=== PATIENT | male | born 1940 | race Caucasian/White ===

== ENCOUNTER → 2018-11-06 06:09 | Outpatient (CLI) | payer MEDICARE, OTHER, SELFPAY ==
--- NOTE | 2018-11-06 09:33 | STRESSREP_ITS ---
Stress Test Report Date: 11-06-18 Procedure: Pharmacologic stress nuclear imaging study Indications: Chest pain Consent: Per the patient Procedure: The patient underwent pharmacologic (Regadenoson) evaluation with a peak heart rate of 92 beats per minute (65 %predicted maximal heart rate) and a peak blood pressure of 170/62 mmHg. The baseline ECG demonstrated normal sinus rhythm. The peak pharmacologic ECG demonstrated no obvious ECG changes. There were no cardiac dysrhythmias pretest, during pharmacologic infusion, or recovery. There was no complaint of chest discomfort during pharmacologic infusion or recovery. The examination was discontinued secondary to completion of protocol. Impression: 1. Pharmacologic (Regadenoson) evaluation 2. Peak pharmacologic ECG with no obvious ECG changes. 3. There were no cardiac dysrhythmias pretest, during pharmacologic infusion, or recovery. 4. Nuclear images pending Myocardial perfusion imaging study: Technique: The patient was injected with 11.1 millicuries of technetium 99m Cardiolite and subsequently rest SPECT Cardiolite nuclear imaging was obtained in the horizontal long, vertical long, and short axis views. The patient underwent pharmacologic (Regadenoson) evaluation with a peak heart rate of 92 beats per minute (65 % percent predicted maximal heart rate) and a peak blood pressure of 170/62 mmHg. The patient was injected with 32.9 millicuries of technetium 99m Cardiolite and subsequently stress SPECT Cardiolite nuclear imaging was obtained in the horizontal long, vertical long, and short axis views. A gated Cardiolite study at peak stress was obtained. Interpretation: Rest and stress SPECT Cardiolite nuclear imaging status post realignment, normalization, and attenuation correction demonstrate a small area of subtle diminished tracer uptake near the apical segments without significant change between rest and stress. There is end systolic thickening and brightening. The gated Cardiolite study demonstrates myocardial thickening and inward wall motion. The reported LVEF is 55 %. Impression: 1. Rest and stress SPECT currently nuclear imaging demonstrate a small area of subtle diminished tracer uptake near the apical segments without significant change between rest and stress appearing compatible with physiologic apical thinning with no myocardial perfusion changes considered diagnostic for associated stress-induced myocardial ischemia. 2. The gated Cardiolite study reports an LVEF of 55 %. This note was generated with [employer] software. It may contain incorrect words, spelling, and punctuation that were not noted in checking the note before signing.
== END ==
PROVIDERS: Family Provider Family Medicine; PCP Family Medicine; Referring Provider Internal Medicine Cardiovascular Disease; Visit Provider Internal Medicine Cardiovascular Disease
DX: I25.10 Atherosclerotic heart disease of native coronary artery without angina pectoris (principal); I10 Essential (primary) hypertension
CPT/HCPCS: 78452; 93017; A9500; A4216; J2785

== ENCOUNTER → 2019-01-12 10:40 | Outpatient (CLI) | payer MEDICARE, OTHER, SELFPAY ==
[2018-12-04 14:28] VITALS: BMI 24.9
[2019-01-01 17:47] VITALS: BMI 24.9
--- NOTE | 2019-01-12 11:51 | RAD_ITS ---
STUDY: X-RAY CHEST REASON FOR EXAM: Male, 78 years old. Worsening shortness of breath TECHNIQUE: PA and lateral views of the chest. COMPARISON: None. FINDINGS: There is hyperinflation of the lungs consistent with chronic obstructive lung disease (COPD). There is no demonstrated pleural abnormality. Normal size heart. Normal mediastinum and hayder. Normal visualized pulmonary arteries. There is atherosclerotic calcification of the aortic arch with tortuosity. There are diffuse degenerative changes of the visualized thoracic spine. Normal visualized ribs, clavicles, and shoulders. There is no demonstrated abnormality of the visualized soft tissue structures of the upper abdomen. RAD/Chest PA and Lateral IMPRESSION: Hyperexpanded lungs, no superimposed acute pulmonary process Electronically Signed: Alfredo Damon MD at 12:14 EDT , Service support ,
--- NOTE | 2019-01-12 14:58 | PFTCOMP_ITS ---
COMPLETE PULMONARY FUNCTION TEST INTERPRETATION Brief HPI: Patient is an 78 year old male, currently under the care of Dr. Loya, who presents to [facility] for complete pulmonary function tests secondary to diagnosis of dyspnea. Respiratory therapist reports good effort and reproducible results. Interpretation: Forced expiration spirometry shows no large airways obstructive ventilatory defect with an FEV1 of 107% predicted. There is no significant bronchodilator response by strict ATS criteria. Spirograms are of good quality and plateau slowly, indicating slowly emptying areas of the lungs. The respiratory flow volume loop shows decreased expiratory flow rates at high lung volumes consistent with small airways obstruction. Lung volumes by body plethysmography show a normal total lung capacity at 5.33 L, 108% predicted. All other lung volumes are within normal limits. Diffusion capacity by carbon monoxide is normal at 126% predicted. The airway resistance is elevated. No previous pulmonary function tests were available for review. Impression: Grossly normal pulmonary function test with some stigmata of possible small airways disease. There was some improvement with bronchodilators, but this did not reach clinical significance by strict ATS criteria.
== END ==
PROVIDERS: Family Provider Family Medicine; PCP Family Medicine; Referring Provider Internal Medicine Cardiovascular Disease; Visit Provider Internal Medicine Cardiovascular Disease
DX: R06.00 Dyspnea, unspecified (principal)
CPT/HCPCS: 71046; 94060; 94726; 94729

== ENCOUNTER → 2019-04-13 12:50 | Outpatient (CLI) | payer MEDICARE, OTHER, SELFPAY ==
[2018-12-04 14:28] VITALS: BMI 24.9
[2019-02-19 06:17] VITALS: BMI 24.7
--- NOTE | 2019-04-13 12:52 | ECHOCS_ITS ---
Reason For Study: Dyspnea/SOB Procedure This was a 2D Doppler, Color Flow transthoracic echocardiogram. The study was technically difficult. Contrast injection was performed. Exam performed in department. Left Ventricle Normal LV size. Moderate concentric left ventricular hypertrophy. Apical false tendon noted. Left ventricular systolic function is normal. The estimated ejection fraction is 55 %. No evidence for diastolic dysfunction. No regional wall motion abnormalities noted. Right Ventricle Normal RV size. Normal systolic function. Atria Normal left atrium. Normal right atrium. No doppler evidence for ASD. Bubble contrast study negative for right to left interatrial shunt. Mitral Valve There is no mitral annular calcification. Normal mitral valve. Trivial mitral valve insufficiency. Tricuspid Valve Normal tricuspid valve. Trivial tricuspid valve insufficiency. Unable to estimate RV systolic pressure/pulmonary artery pressure due to technically difficult study. Aortic Valve The aortic valve is not well visualized. Mild focal aortic valve calcification. Mild (1+) aortic valve insufficiency. Pulmonic Valve The pulmonic valve is not well visualized. Great Vessels The aortic root is not well visualized. Pericardium/Pleural No pericardial effusion. Medication 22 gauge I.V. with prn adaptor inserted into right arm. Diluted definity 2ml given slow IV push to enhance endocardial definition. Performed a rapid injection of agitated mix of 9 cc saline and 1cc air to assess for atrial septal defect. MMode/2D Measurements & Calculations LVIDd: 4.5 cm IVSd: 1.5 cm LA dimension: 2.6 cm LVIDs: 2.8 cm LVPWd: 1.8 cm FS: 37.8 % LAV(MOD-sp2): 50.4 ml LVAd ap4: 41.1 cm2 SV(MOD-sp4): 92.6 ml EDV(MOD-sp4): 154.0 ml EDV(sp4-el): 163.0 ml LVAs ap4: 23.5 cm2 ESV(MOD-sp4): 61.4 ml ESV(sp4-el): 64.1 ml EF(MOD-sp4): 60.1 % EF(sp4-el): 60.7 % SV(sp4-el): 98.9 ml RA A4 area: 11.6 cm2 Time Measurements MV dec time: 0.25 sec Doppler Measurements & Calculations MV E max manpreet: 46.6 cm/sec Lat Peak E' Manpreet: 7.4 cm/sec Med Peak E' Manpreet: 4.2 cm/sec MV A max manpreet: 81.2 cm/sec E/E' lat: 6.3 E/E' med: 11.1 MV E/A: 0.57 MV V2 max: 83.6 cm/sec MV P1/2t max manpreet: 63.6 cm/sec Ao V2 max: 77.8 cm/sec MV max P.8 mmHg MV P1/2t: 136.4 msec Ao max P.4 mmHg MV V2 mean: 48.2 cm/sec Ao V2 mean: 50.3 cm/sec MV mean P.1 mmHg MV dec slope: 136.6 cm/sec2 Ao mean P.2 mmHg MV V2 VTI: 30.6 cm MVA(P1/2t): 1.6 cm2 Ao V2 VTI: 15.2 cm AI max manpreet: 359.8 cm/sec LV V1 max: 73.4 cm/sec PA V2 max: 70.1 cm/sec AI max P.8 mmHg LV V1 max P.2 mmHg LV V1 mean P.87 mmHg AI dec slope: 272.3 cm/sec2 LV V1 mean: 42.2 cm/sec AI P1/2t: 387.0 msec LV V1 VTI: 16.0 cm Interpretation Summary The study was technically difficult. Contrast injection was performed. Left ventricular systolic function is normal. The estimated ejection fraction is 55 %. Moderate concentric left ventricular hypertrophy. Apical false tendon noted. Trivial mitral valve insufficiency. Trivial tricuspid valve insufficiency. Mild focal aortic valve calcification. Mild (1+) aortic valve insufficiency. Unable to estimate RV systolic pressure/pulmonary artery pressure due to technically difficult study. No evidence for diastolic dysfunction. Ordering Physician: Farhat Loya Referring Physician: Jamie Yang Performed By: Jonathan Smith RCS
== END ==
PROVIDERS: Family Provider Family Medicine; PCP Family Medicine; Referring Provider Internal Medicine Cardiovascular Disease; Visit Provider Internal Medicine Cardiovascular Disease
DX: R06.00 Dyspnea, unspecified (principal)
CPT/HCPCS: 93306; Q9957; A4216; C8929

== ENCOUNTER → 2019-06-02 12:59 | Outpatient (CLI) | payer MEDICARE, OTHER, SELFPAY ==
[2019-02-19 06:17] VITALS: BMI 24.7
[2019-04-21 10:45] VITALS: BMI 25.0
--- NOTE | 2019-06-02 17:14 | BRONCHALL_ITS ---
Bronchoprovocation Challenge - Bronchoprovocation Challenge Bronchoprovocation Challenge: BRONCHOPROVOCATION STUDY INTERPRETATION Brief HPI: Patient is an 79 year old fe-male, currently under the care of myself, who presents to [facility] for a bronchoprovocation study secondary to diagnosis of chronic cough. Respiratory therapist reports good effort and reproducible results. Interpretation: Initial spirometry showed no large airways obstructive ventilatory defect. The patient was then given increasingly concentrated doses of methacholine in a stepwise fashion, using a modified ATS protocol. The patient had a significant reduction in FEV1 by 35% and a calculated PD20 of 0.643. Impression: This is a positive test in a range non-specific for asthma
== END ==
PROVIDERS: Family Provider Family Medicine; PCP Family Medicine; Referring Provider Internal Medicine Critical Care Medicine; Visit Provider Internal Medicine Critical Care Medicine
DX: R05 Cough (principal)
CPT/HCPCS: 94070; 95070; J3490; J7674

== ENCOUNTER 2020-12-11 16:58 | Inpatient (IN) | payer MEDICARE, OTHER, SELFPAY ==
[2020-08-29 14:05] VITALS: BMI 24.3
[2020-12-11 16:59] VITALS: BP 159/83; PULSE 93; RESP 16; TEMP 37.4; O2SAT 95; BMI 26.4
--- NOTE | 2020-12-11 17:12 | CT_ITS ---
EXAMINATION : Head CT w/out contrast HISTORY : fall COMPARISON : None. TECHNIQUE : Multiple contiguous axial images were obtained from the skull base to the vertex without intravenous contrast. A radiation dose optimization technique was used for this scan. FINDINGS : There is no evidence for acute intracranial hemorrhage, mass effect, or midline shift. There is no extra-axial fluid collection. There are periventricular white matter changes consistent with chronic microvascular ischemic disease. There is sulcal widening and ventricular enlargement consistent with cerebral atrophy. There is normal seymour-white differentiation, without CT evidence of acute ischemia or infarct. The skull base and calvarium are unremarkable. Bone-anchored hearing aid in place on the left. The orbits are unremarkable. The paranasal sinuses are clear. The mastoid air cells are well-aerated. The soft tissues are unremarkable. CT/Brain/Head without Contrast IMPRESSION: No acute intracranial abnormality. Chronic involutional and ischemic changes of the brain. Electronically Signed: Randell Richardson MD at 18:41 EDT Tel , Service support ,
--- NOTE | 2020-12-11 17:13 | EKG12_ITS ---
Test Reason : WEAKNESS Blood Pressure : / mmHG Vent. Rate : 093 BPM Atrial Rate : 093 BPM P-R Int : 192 ms QRS Dur : 100 ms QT Int : 358 ms P-R-T Axes : 038 -12 059 degrees QTc Int : 445 ms Normal sinus rhythm Moderate voltage criteria for LVH, may be normal variant Borderline ECG Confirmed by DEMETRIA BOYER, SARATH ([id number]), design editor COLLIN ANDRES ([id number]) on 12/13/2020 9:25:27 AM Referred By: GREGOR Confirmed By:SARATH AUGUSTIN MD
--- NOTE | 2020-12-11 17:15 | EX.ED.DYSGE1 ---
HPI History of Present Illness Chief Complaint: Weakness Informant: patient and spouse/S.O. Onset/Context/Timing Onset: Days Context: Gradual Onset Current Severity: Mild Maximum Severity: Moderate Narrative Narrative: Patient presents via EMS secondary to generalized weakness. states has had increasing weakness over the past several days. Today he went to sleep more than normal. He did have a fall today. states that he does fall fairly frequently. No specific injury from the fall. She was having more trouble helping him walk today and called EMS. [facility] Medical History (Updated 12/11/20 @ 19:[address] Jessica Marinelli MD) Bilateral carotid artery stenosis Cochlear implant in place Essential hypertension Non-rheumatic aortic regurgitation Non-rheumatic mitral regurgitation Vasovagal syncope Home Medications montelukast 10 mg tablet 10 mg PO QPM 12/03/18 [History Last Taken Unknown] triamcinolone acetonide 55 mcg nasal spray aerosol 1 spray INTRANASAL DAILY PRN 12/03/18 [History Last Taken Unknown] albuterol sulfate 90 mcg/actuation aerosol inhaler 2 puff INHALATION Q4H PRN #18 g 09/21/19 [Rx Last Taken Unknown] fluticasone 113 mcg-salmeterol 14 mcg/actuation breath activated powdr 1 inh INHALATION BID #1 ea 02/29/20 [Rx Last Taken Unknown] meloxicam 7.5 mg PO DAILY 12/11/20 [History Last Taken Unknown] tramadol 50 mg PO Q8 PRN 12/11/20 [History Last Taken Unknown] Allergy/AdvReac Type Severity Reaction Status Date / Time No Known Allergies Allergy Verified 12/11/20 17:04 Family History Mother Cancer ovarian Social History Smoking Status: Never smoker alcohol intake: never substance use type: does not use caffeine: Yes Type: tea Number of servings: 1 what type of physical activity do you participate in: none seatbelt use: always do you feel safe at home: Yes ROS ROS ED Constitutional Constitutional ED: Denies chills or fever(s) Eyes Eyes: Denies change in vision ENT ENT ED: Denies sore throat Cardiovascular Cardiovascular: Denies chest pain Respiratory/Chest Respiratory/Chest: Denies cough or dyspnea Gastrointestinal Gastrointestinal: Denies abdominal pain, diarrhea, nausea or vomiting Genitourinary Genitourinary ED: Denies dysuria Musculoskeletal Musculoskeletal: Reports arthralgias and neck pain; Denies back pain Integumentary Denies rash Neurologic Neurologic: Denies headache(s) or weakness Psychiatric Psychiatric: Denies anxiety or depression Endocrine Endocrinology: Denies polydipsia or polyuria Allergic/Immunologic Allergic/Immunologic ED: Denies urticaria EXAM Physical Exam Const Vital Signs: 12/11/20 16:59 12/11/20 17:04 Temperature 99.4 F H Temperature Source Temporal Pulse Rate 93 Respiratory Rate 16 Respiratory Effort Normal Respiratory Pattern Normal Blood Pressure 159/83 H Blood Pressure Mean 108 Pulse Ox 95 Oxygen Delivery Method Room Air Positive well nourished and well developed General Appearance ED: well developed HEENT Reports normocephalic and head/scalp atraumatic Eyes PERRL and EOMs intact bilaterally Neck supple Chest Wall inspection of chest normal and palpation of chest normal Resp normal respiratory effort and clear to auscultation bilaterally Cardio regular rate and regular rhythm GI normal to inspection, nondistended, normoactive bowel sounds Palpation: soft Extremity normal to inspection Neuro oriented x3 and no sensory deficits noted Neuro Narrative: No focal neurologic deficits noted at this time. Sensorium / Orientation: alert Motor Exam: strength 5/5 throughout Psych mental status grossly normal Skin no rashes or lesions noted MDM MDM MDM Narrative Medical decision making narrative: EKG, chest x-ray, head CT obtained. Blood work and urinalysis ordered. Lab Data Attestation: I reviewed the patient's lab results. Labs: Laboratory Results - last 24 hr 12/11/20 12/11/20 12/11/20 17:20 17:20 17:24 WBC 1.5 L RBC 4.00 L Hgb 13.8 Hct 38.6 L MCV 96.5 H MCH 34.5 H MCHC 35.8 RDW Std Deviation 46.3 H RDW Coeff of Cris 13.2 Plt Count 161 MPV 8.4 Immature Gran % (Auto) 0.000 Neut % (Auto) 16.2 L Lymph % (Auto) 35.8 Dorado % (Auto) 44.6 H Eos % (Auto) 2.7 Baso % (Auto) 0.7 Absolute Neuts (auto) 0.2 L Absolute Lymphs (auto) 0.53 L Nucleated RBC % 0 Diff Path Review May foll Sodium 130 L Potassium 4.1 Chloride 95 L Carbon Dioxide 26.0 Anion Gap 9 BUN 16 Creatinine 1.16 Estim Creat Clear Calc 41.11 Est GFR (MDRD) Af Amer 77 Est GFR (MDRD) Non-Af 64 BUN/Creatinine Ratio 13.8 Glucose 77 Calcium 8.0 L Total Bilirubin 0.40 Direct Bilirubin 0.12 AST 64 H ALT 67 H Alkaline Phosphatase 65 Troponin I 0.032 Total Protein 6.7 Albumin 3.4 Globulin 3.3 Urine Color Urine Clarity Urine pH Ur Specific Fallon Urine Protein Urine Glucose (UA) Urine Ketones Urine Occult Blood Urine Nitrite Urine Bilirubin Urine Urobilinogen Ur Leukocyte Esterase Urine RBC Urine WBC Ur Squamous Epith Cells Urine Bacteria Urine Mucus POC Glucose 79 12/11/20 18:04 WBC RBC Hgb Hct MCV MCH MCHC RDW Std Deviation RDW Coeff of Cris Plt Count MPV Immature Gran % (Auto) Neut % (Auto) Lymph % (Auto) Dorado % (Auto) Eos % (Auto) Baso % (Auto) Absolute Neuts (auto) Absolute Lymphs (auto) Nucleated RBC % Diff Path Review Sodium Potassium Chloride Carbon Dioxide Anion Gap BUN Creatinine Estim Creat Clear Calc Est GFR (MDRD) Af Amer Est GFR (MDRD) Non-Af BUN/Creatinine Ratio Glucose Calcium Total Bilirubin Direct Bilirubin AST ALT Alkaline Phosphatase Troponin I Total Protein Albumin Globulin Urine Color Yellow Urine Clarity Sl. Cloudy Urine pH 6.0 Ur Specific Fallon 1.020 Urine Protein 15 H Urine Glucose (UA) Normal Urine Ketones Negative Urine Occult Blood 10 H Urine Nitrite Negative Urine Bilirubin Negative Urine Urobilinogen Normal Ur Leukocyte Esterase 25 H Urine RBC 0-5 SEEN Urine WBC 0-5 SEEN Ur Squamous Epith Cells 0-5 SEEN Urine Bacteria 0 SEEN Urine Mucus 0 SEEN POC Glucose Radiography Chest X-Ray - ED: 1 View, Read by ED Physician and - (Rotated image but no focal infiltrate noted.) Diagnostic Testing: Radiology Impression Brain CT 12/11/20 17:12 IMPRESSION: No acute intracranial abnormality. Chronic involutional and ischemic changes of the brain. Electronically Signed: Randell Richardson MD at 18:41 EDT Tel , Service support , Chest X-Ray 12/11/20 18:06 IMPRESSION: Normal x-ray examination of the chest. Electronically Signed: Arun Gan MD at 18:22 EDT Tel , Service support , EKG Initial EKG: Attestation: I personally reviewed and interpreted this EKG as follows: Interpretation: Sinus Rhythm (Sinus at [address] change.) Treatment and Re-Evaluation Comments:: On repeat evaluation patient is lying in bed. He does appear agitated and fidgety. states she has noted increased confusion and agitation even since he left home. At this time I have no definitive source of infection to explain his change in symptoms. I will speak with hospitalist regarding observation overnight and repeat evaluation. Discharge Plan Triage Chief Complaint: Weakness ED Provider: Jessica Marinelli Dx/Rx/DC Orders Clinical Impression: Acute confusion Prescriptions: No Action triamcinolone acetonide [Nasacort] 55 mcg aerosol,spray 1 spray INTRANASAL DAILY PRN (Reason: Allergic Symptoms) RF: 0 montelukast 10 mg tablet 10 mg PO QPM RF: 0 albuterol sulfate [Ventolin HFA] 90 mcg/actuation HFA aerosol inhaler 2 puff INHALATION Q4H PRN (Reason: shortness of breath or wheezing) Qty: 18 RF: 6 fluticasone propion-salmeterol [AirDuo RespiClick] 113-14 mcg/actuation aerosol powdr breath activated 1 inh INHALATION BID Qty: 1 RF: 6 tramadol 50 mg tablet 50 mg PO Q8 PRN (Reason: Pain) RF: 0 meloxicam 7.5 mg tablet 7.5 mg PO DAILY RF: 0 Primary Care Provider: Jamie Yang Referrals: Jamie Yang MD [Primary Care Provider] - Disposition Disposition: Acute Care [facility]
[2020-12-11 17:31] LABS: Bedside Glucose 79 mg/dL (70-110)
[2020-12-11 17:36] LABS: Absolute Lymphocyte Count 0.53 X10^3/uL (0.83-4.51); Absolute Neutrophil Count 0.2 X10^3/uL (2.0-7.7); Basophil# 0.01 X10^3/uL; Basophil% 0.7 % (0-1); Eosinophil# 0.04 X10^3/uL; Eosinophils% 2.7 % (0-5); Hematocrit 38.6 % (40-54); Hemoglobin 13.8 g/dL (13.0-16.5); Lymphocyte # 0.53 X10^3/ul (0.83-4.51); Lymphocyte % 35.8 % (19-41); Mean Corp Hgb Conc 35.8 g/dL (32-36); Mean Corpuscular Hgb 34.5 pg (27.0-32.0); Mean Corpuscular Volume 96.5 fL (80-94); Mean Platelet Vol. 8.4 fl (6.2-12.0); Monocyte# 0.66 X10^3/uL; Monocyte% 44.6 % (0-10); NRBC Flagged by Analyzer 0 % (0-5); Neutrophil # 0.24 X10^3/uL (2.7-7.7); Neutrophil % 16.2 % (47-70); POSITIVE COUNT YES; POSITIVE DIFFERENTIAL YES; POSITIVE MORPHOLOGY YES; Platelet Count 161 K/mm3 (150-450); RBC Distribution Width CV 13.2 % (11.6-14.6); RBC Distribution Width SD 46.3 fl (35.1-43.9); White Blood Count 1.5 K/mm3 (4.4-11.0)
[2020-12-11 18:00] LABS: AST(SGOT) 64 U/L (15-37); Alanine Aminotransfer ALT/SGPT 67 U/L (16-61); Albumin, Serum 3.4 g/dL (3.2-5.0); Alkaline Phosphatase 65 U/L (45-117); Anion Gap 9 (5-15); BUN 16 mg/dL (7-18); BUN/Creat Ratio 13.8 RATIO (10-20); Bilirubin, Direct 0.12 mg/dL (0.00-0.30); Chloride 95 mmol/L (98-107); Creatinine, Serum 1.16 mg/dL (0.70-1.30); EST Glomerular Filtration Rate 64 mL/min (>60); Est Glom Filt Rate - Afr Amer 77 mL/min (>60); Estimated Creatinine Clearance 41.11 ml/min; Globulin 3.3 g/dL (2.2-4.2); Glucose 77 mg/dL (74-106); Potassium 4.1 mmol/L (3.5-5.1); Protein, Total 6.7 g/dL (6.4-8.2); Sodium Level 130 mmol/L (136-145)
[2020-12-11 18:01] LABS: Differential Indicated SCAN CRITERIA MET
--- NOTE | 2020-12-11 18:06 | RAD_ITS ---
STUDY: X-RAY CHEST REASON FOR EXAM: Male, 80 years old. sob TECHNIQUE: Single AP portable view of the chest. COMPARISON: 01/12/2019 FINDINGS: The lungs are clear and expanded. There is no demonstrated pleural abnormality. Normal size heart. Normal mediastinum and hayder. Normal visualized pulmonary arteries. Normal visualized aortic arch and descending thoracic aorta. Normal visualized thoracic spine. Normal visualized ribs, clavicles, and shoulders. There is no demonstrated abnormality of the visualized soft tissue structures of the upper abdomen. RAD/Chest 1 View (Portable) IMPRESSION: Normal x-ray examination of the chest. Electronically Signed: Arun Gan MD at 18:22 EDT Tel , Service support ,
[2020-12-11 18:11] LABS: Bacteria 0 SEEN /hpf (None Seen); Mucous, Urine 0 SEEN /hpf (<or=2+)
[2020-12-11 18:15] LABS: Color, Urine Yellow (Yellow); Glucose, Dipstick Normal (Normal); Ketone-Dipstick Negative (Negative); Leukocyte Esterase-Dipstick 25 /ul (Negative); Nitrite-Dipstick Negative (Negative); Occult Blood-Urine 10 /ul (Negative); Protein-Dipstick 15 mg/dl (Negative); Urine Bilirubin Dipstick Negative (Negative); Urine Clarity Sl. Cloudy (Clear); Urine Urobilinogen Normal (Normal)
[2020-12-11] MEDS: 0.9% Normal Saline 1,000 ML 150 ML IV ×2 (18:29→21:46)
[2020-12-11 18:34] LABS: Red Blood Cells-Urine 0-5 SEEN /hpf (0-5); Squamous Epithelial Cells - UA 0-5 SEEN /hpf (0-5); White Blood Cells 0-5 SEEN /hpf (0-5)
--- NOTE | 2020-12-11 19:01 | ED.RN ---
PT CONFUSED, BECOMES AGITATED, THESE ARE BASELINE BEHAVIORS PER .
--- NOTE | 2020-12-11 20:03 | HP.PCM.HOS_ITS ---
HPI - General General Date of Admission: 12/11/20 HPI Narrative EVERETT ORTIZ, is a 80 M who presents increased confusion and weakness. History primarily obtained through his given the patient's profound presbycusis, patient at baseline has some mild weakness where he would use her shoulder problem solve up to navigate in a store but would also have some confusion. He certainly not as sharp as he once was but would have periods of confusion 2. Today, the patient was notably more confused and was more impulsive such as getting himself up into the bathroom without waiting for help and then he did fall while he was propping himself up against a chair. No head trauma was noted . She was unable to manage him at home and send him to the emergency room. In the emergency room, patient underwent a work-up that was unremarkable. Patient was started on IV fluids but then he pulled out his IV. [facility] Medical History (Updated 12/11/20 @ 20:[address] Regulo Briones DO) Bilateral carotid artery stenosis Cochlear implant in place Essential hypertension Non-rheumatic aortic regurgitation Non-rheumatic mitral regurgitation Vasovagal syncope Home Medications montelukast 10 mg tablet 10 mg PO QPM 12/03/18 [History Last Taken Unknown] triamcinolone acetonide 55 mcg nasal spray aerosol 1 spray INTRANASAL DAILY PRN 12/03/18 [History Last Taken Unknown] albuterol sulfate 90 mcg/actuation aerosol inhaler 2 puff INHALATION Q4H PRN #18 g 09/21/19 [Rx Last Taken Unknown] fluticasone 113 mcg-salmeterol 14 mcg/actuation breath activated powdr 1 inh INHALATION BID #1 ea 02/29/20 [Rx Last Taken Unknown] meloxicam 7.5 mg PO DAILY 12/11/20 [History Last Taken Unknown] tramadol 50 mg PO Q8 PRN 12/11/20 [History Last Taken Unknown] Allergy/AdvReac Type Severity Reaction Status Date / Time No Known Allergies Allergy Verified 12/11/20 17:04 Family History Mother Cancer ovarian Social History Smoking Status: Never smoker alcohol intake: never substance use type: does not use caffeine: Yes Type: tea Number of servings: 1 what type of physical activity do you participate in: none seatbelt use: always do you feel safe at home: Yes ÁNGEL NEAL Narrative Weakness. Increased confusion. Patient about a month ago did have a rash that began his groin and then spread up his trunk but did receive prednisone which alleviated that rash. Had seen a primary care doctor as well as a astronomy instructor but no clear source was identified. Patient had not been sick prior to that. Patient denies any recent COVID-19 contacts. Patient has not been vaccinated for COVID-19. All review of systems were negative except as mentioned above in the history of present illness and the other review of systems. Vital Signs Vital Signs Vital Signs: 12/11/20 16:59 12/11/20 17:04 Temperature 37.4 C H Temperature Source Temporal Pulse Rate 93 Respiratory Rate 16 Respiratory Effort Normal Respiratory Pattern Normal Blood Pressure 159/83 H Blood Pressure Mean 108 Pulse Ox 95 Oxygen Delivery Method Room Air Weight Weight: 69.9 kg Body Mass Index (BMI) 26.4 Physical Exam Const alert and healthy appearing Constitutional Narrative: Hard of hearing. Afebrile. Pleasantly confused. HEENT normocephalic and head/scalp atraumatic HEENT Narrative: Slightly dry mucous membrane Eyes PERRL Neck no lymphadenopathy Resp normal respiratory effort and clear to auscultation bilaterally Cardio regular rate, regular rhythm, S1 normal heart sound and S2 normal heart sound GI normal to inspection, nondistended, normoactive bowel sounds, non-tender and non-distended Extremity normal to inspection, full ROM and no clubbing, cyanosis or edema Skin no rashes or lesions noted, no wounds and skin turgor normal Neuro CN's II-XII intact bilaterally, moves all extremities and no focal motor deficits Sensorium / Orientation: awake and alert Motor Exam: strength 5/5 throughout Results Lab / Micro Data Attestation: I reviewed the patient's lab results. Result Diagrams: 12/11/20 17:20 12/11/20 17:20 Labs: Laboratory Results - last 24 hr 12/11/20 12/11/20 12/11/20 17:20 17:20 17:24 WBC 1.5 L RBC 4.00 L Hgb 13.8 Hct 38.6 L MCV 96.5 H MCH 34.5 H MCHC 35.8 RDW Std Deviation 46.3 H RDW Coeff of Cris 13.2 Plt Count 161 MPV 8.4 Immature Gran % (Auto) 0.000 Neut % (Auto) 16.2 L Lymph % (Auto) 35.8 [place] % (Auto) 44.6 H Eos % (Auto) 2.7 Baso % (Auto) 0.7 Absolute Neuts (auto) 0.2 L Absolute Lymphs (auto) 0.53 L Nucleated RBC % 0 Diff Path Review May foll Sodium 130 L Potassium 4.1 Chloride 95 L Carbon Dioxide 26.0 Anion Gap 9 BUN 16 Creatinine 1.16 Estim Creat Clear Calc 41.11 Est GFR (MDRD) Af Amer 77 Est GFR (MDRD) Non-Af 64 BUN/Creatinine Ratio 13.8 Glucose 77 Calcium 8.0 L Total Bilirubin 0.40 Direct Bilirubin 0.12 AST 64 H ALT 67 H Alkaline Phosphatase 65 Troponin I 0.032 Total Protein 6.7 Albumin 3.4 Globulin 3.3 Urine Color Urine Clarity Urine pH Ur Specific [place] Urine Protein Urine Glucose (UA) Urine Ketones Urine Occult Blood Urine Nitrite Urine Bilirubin Urine Urobilinogen Ur Leukocyte Esterase Urine RBC Urine WBC Ur Squamous Epith Cells Urine Bacteria Urine Mucus POC Glucose 79 12/11/20 18:04 WBC RBC Hgb Hct MCV MCH MCHC RDW Std Deviation RDW Coeff of Cris Plt Count MPV Immature Gran % (Auto) Neut % (Auto) Lymph % (Auto) [place] % (Auto) Eos % (Auto) Baso % (Auto) Absolute Neuts (auto) Absolute Lymphs (auto) Nucleated RBC % Diff Path Review Sodium Potassium Chloride Carbon Dioxide Anion Gap BUN Creatinine Estim Creat Clear Calc Est GFR (MDRD) Af Amer Est GFR (MDRD) Non-Af BUN/Creatinine Ratio Glucose Calcium Total Bilirubin Direct Bilirubin AST ALT Alkaline Phosphatase Troponin I Total Protein Albumin Globulin Urine Color Yellow Urine Clarity Sl. Cloudy Urine pH 6.0 Ur Specific [place] 1.020 Urine Protein 15 H Urine Glucose (UA) Normal Urine Ketones Negative Urine Occult Blood 10 H Urine Nitrite Negative Urine Bilirubin Negative Urine Urobilinogen Normal Ur Leukocyte Esterase 25 H Urine RBC 0-5 SEEN Urine WBC 0-5 SEEN Ur Squamous Epith Cells 0-5 SEEN Urine Bacteria 0 SEEN Urine Mucus 0 SEEN POC Glucose Radiology Impression Brain CT 12/11/20 17:12 IMPRESSION: No acute intracranial abnormality. Chronic involutional and ischemic changes of the brain. Electronically Signed: Randell Richardson MD at 18:41 EDT Tel , Service support , Chest X-Ray 12/11/20 18:06 IMPRESSION: Normal x-ray examination of the chest. Electronically Signed: Arun Gan MD at 18:22 EDT Tel , Service support , Assessment & Plan Assessment/Plan (1) Acute confusion: (2) Debility: PLAN: 1. Debility * At baseline, patient is week but only requiring minimal support but today was much more pronounced. No clear source can be identified that would explain this dramatic change for him. * Plan would be to try to reattempt IV fluids as patient does appear to be a li ttle bit dehydrated. Additionally physical and occupational therapy evaluate and treat. Patient's is open to assisted facility if that is necessary. 2. Confusion * Patient more confused than his normal self but does have confusion at baseline. I feel this is just an exaggeration of his underlying what I feel is dementia. I told the patient's I cannot diagnose him with dementia but she is concerned that that could be a possibility. I did recommend that they follow-up with c2 tactical analysis technician to do a formal dementia evaluation. In the meantime, avoid tension medications, such as tramadol. Not sure the tramadol is contributing to this current situation may not be helping so that will be held. * Check TSH, B12 and folate levels for potentially reversible causes 3. Right shoulder pain * Per the patient's , patient is seen orthopedics and felt not to be a source of shoulder issue but is concerning that it can be radicular coming from the cervical spine. Patient was to follow-up with pain management to have an injection. This can be managed as outpatient. * But given the confusion we will hold the tramadol and to continue with the patient's meloxicam as well as add acetaminophen 4. Asthma * Not in exacerbation * Continue with his home medications 5. VTE prophylaxis: Not indicated given observation status at this time. 6. Advanced care planning: Discussed with the patient's . She she is unsure. I informed her that since she is unsure that we would leave the patient a full CODE STATUS meaning chest compressions, shocks if indicated, medications and potentially life support. And I did inform her that these decisions can be changed. 7. Health maintenance: Patient has not been vaccinated against COVID-19. She thinks that she herself may have contracted it back in June as she lost smell and taste at that time. Patient had no symptoms. I did encourage her as well as the patient to get vaccinated against COVID-19 to help protect from the va riant strains. Charges/Coding Visit Charges OBSV E&M: 71455 Initial observation care L3
[2020-12-11 20:07] VITALS: BP 148/71; PULSE 81; RESP 16; TEMP 37.1; O2SAT 95
[2020-12-11 21:05] VITALS: BMI 22.5
[2020-12-11 21:19] VITALS: BP 132/54; PULSE 94; RESP 18; TEMP 37.8; O2SAT 98
[2020-12-11] MEDS: Montelukast 10 MG Tablet PO (21:42)
[2020-12-11] MEDS: Acetaminophen 325 MG Tablet 650 MG PO (21:46)
[2020-12-11] MEDS: 0.9% Saline Lock 10 ML Syringe IV (21:47)
[2020-12-12] VITALS (8 sets, daily range): BP systolic 102–144; BP diastolic 41–84; PULSE 85–96; RESP 18–22; TEMP 36.8–37.8; O2SAT 94–99
[2020-12-12] MEDS: 0.9% Saline Lock 10 ML Syringe IV ×2 (04:35→21:26)
[2020-12-12 06:46] LABS: Absolute Lymphocyte Count 0.64 X10^3/uL (0.83-4.51); Absolute Neutrophil Count 0.2 X10^3/uL (2.0-7.7); Eosinophil# 0.02 X10^3/uL; Eosinophils% 1.1 % (0-5); Hematocrit 38.4 % (40-54); Hemoglobin 13.4 g/dL (13.0-16.5); Lymphocyte # 0.64 X10^3/ul (0.83-4.51); Lymphocyte % 36.8 % (19-41); Mean Corp Hgb Conc 34.9 g/dL (32-36); Mean Corpuscular Hgb 33.7 pg (27.0-32.0); Mean Corpuscular Volume 96.5 fL (80-94); Mean Platelet Vol. 8.5 fl (6.2-12.0); Monocyte# 0.83 X10^3/uL; Monocyte% 47.7 % (0-10); NRBC Flagged by Analyzer 0 % (0-5); Neutrophil # 0.24 X10^3/uL (2.7-7.7); Neutrophil % 13.8 % (47-70); POSITIVE DIFFERENTIAL YES; POSITIVE MORPHOLOGY YES; Platelet Count 154 K/mm3 (150-450); RBC Distribution Width CV 13.2 % (11.6-14.6); RBC Distribution Width SD 45.7 fl (35.1-43.9); Red Blood Count 3.98 M/mm3 (4.6-6.2); White Blood Count 1.7 K/mm3 (4.4-11.0)
[2020-12-12 06:51] LABS: Differential Indicated SCAN CRITERIA MET
[2020-12-12 07:02] LABS: Differential Comment SCANNED
[2020-12-12 07:25] LABS: Anion Gap 7 (5-15); BUN 15 mg/dL (7-18); BUN/Creat Ratio 13.6 RATIO (10-20); Chloride 97 mmol/L (98-107); EST Glomerular Filtration Rate 68 mL/min (>60); Est Glom Filt Rate - Afr Amer 82 mL/min (>60); Estimated Creatinine Clearance 43.35 ml/min; Glucose 84 mg/dL (74-106); Potassium 3.8 mmol/L (3.5-5.1); Sodium Level 130 mmol/L (136-145); Thyroid Stim Hormone (TSH) 2.24 uIU/mL (0.358-3.74)
[2020-12-12] MEDS: Albuterol 2.5 MG/3 ML VIAL.NEB. INHALATION (07:35)
[2020-12-12] MEDS: Budesonide Respules 0.5 MG/2 ML AMPUL.NEB. INHALATION ×2 (07:45→19:30)
[2020-12-12 08:29] LABS: Vitamin B12 656 pg/mL (211-911)
--- NOTE | 2020-12-12 10:12 | CASEMGMT ---
PERCY SUH Assessment: Face to Face with pt for initial transition planning/care coordination assessment. PERCY SUH introduced self and role at [facility], pt voices understanding and consents to assessment. Pt is alert sitting up in chair and defers questions to his who is at bedside at this time. Pt is hard of hearing. Care providers, pharmacy, and demographics verified/updated. Admitting Dx: debility PCP: Celia Specialists: Vincenzo, cardio; Isac, derm; Richard, ortho who then referred pt to [facility]cy for nonsurgical intervention; José pulm; Chris Stein, ENT; Dennis for cochlear implant. [facility] Insurance: MCR, [employer] Prescription Benefit: yes, [employer] LW/HPOA: Pt denies pt having LW/DPOA. LNOK: Sayda Cardoza, Living Arrangements: Pt lives with in a single story house with one step to enter into [facility] and 3 into the house, with a grab bar. states pt was I in ADL's up until yesterday. She states she doesn't feel at this point she can handle pt at home. States it takes too much to get him up. Transportation: Pt did drive, states she may need to hide his keys. She is able to transport pt to medical appts. Denies concerns with transportation. DME/HHC/SNF: Pt has a cane, walking stick and shower seat in the walk in shower. Pt has no history of HHC or SNF stays. Pt would like short term therapy for pt at time of dc. She states it took 4 people to assist him in the ER yesterday. States he did better today. Spoke with patient to see if he was agreeable to having short term therapy. He states whatever it takes. Patient and were provided a list of SNF providers including quality and resource use data and consistent with the patient?s preferred geographic region, medical needs, and insurance network. The patient?s preferred provider is 1. [facility] 2. [facility]. Notified Kel OTOOLE of the choices. Pt and state no further concerns/needs. CM to follow. Advised pt and to ask CM if any further question/concerns/needs arise, voices understanding. Pt Goal: Short term therapy to return home safely with . Plan: Short term therapy in SNF.
--- NOTE | 2020-12-12 10:20 | TELEMED_ITS ---
SOC Telemed has confirmed receipt of a request for visit. This document confirms receipt of the order initiating the consult. To find the results of the consultation, please view the patient's reports for the scanned Telemed Consult.
[2020-12-12] MEDS: Meloxicam 7.5 MG Tablet PO (10:23)
--- NOTE | 2020-12-12 11:30 | CASEMGMT ---
Addendum entered by Ivon Felix 12/12/20 17:37: SYDNIE placed a call to Danica in admissions regarding referral. Danica states they would like to do an onsite visit with pt and Rasheeda with [facility] can be at [facility] tomorrow morning to complete on site. SW in to speak with pt and pt's Sayda present in room. SW updated Sayda that [facility] is wanting to do an onsite visit tomorrow morning with pt. Sayda states understanding. SYDNIE then updated that Rasheeda with [facility] is actually at [facility] now to complete on site visit. SW updated Sayda. SYDNIE updated by Rasheeda with [facility] that they are not able to accept pt and she updated Sayda of this. SW to follow up with pt's Sayda tomorrow. Plan: SNF Original Note: Social Work Note SW received referral for SNF placement. First choice is [facility] and second choice is [facility]. SYDNIE placed a call to [facility] and spoke with Danica in admissions and provided referral. SYDNIE faxed referral. Plan: SNF pending acceptance Ivon Felix GLUTEN SETTLING TENDER, CLEAN ENERGY POLICY ANALYST
[2020-12-12 11:59] LABS: Pathologist Review Reviewed
--- NOTE | 2020-12-12 12:30 | PN.HOSP_ITS ---
Documented by User: Whitney Jesus NP, DRUM DYEING MACHINE OPERATOR-C 12/12/20 12:36 Subjective Subjective Patient seen and examined. at bedside. Patient confused, appears restless, impulsive. states patient has some underlying confusion at baseline however yesterday he woke up with dizziness and then became increasing ly confused throughout the day. She denies recent illness or other symptoms or complaints. She denies unilateral weakness, focal deficits, slurred speech. Objective Data Objective Data Vital Signs: Vital Signs Temp Pulse Resp BP Pulse Ox 100.0 F H 89 18 143/55 H 98 12/12/20 07:58 12/12/20 09:26 12/12/20 09:26 12/12/20 07:58 12/12/20 10:38 Oxygen Delivery Method Room Air Weight: 131 lb 6.328 oz Body Mass Index (BMI) 22.5 Intake & Output: Intake and Output for Last 24 Hours 12/10/20 12/11/20 12/12/20 23:59 23:59 23:59 Intake Total 302.5 / 402.5 1200 / 1200 Output Total 700 / 700 Balance 302.5 / 302.5 500 / 500 Lab / Micro Data Result Diagrams: 12/12/20 06:24 12/12/20 06:24 Labs: Laboratory Results - last 24 hr 12/11/20 12/11/20 12/11/20 17:20 17:20 17:24 WBC 1.5 L RBC 4.00 L Hgb 13.8 Hct 38.6 L MCV 96.5 H MCH 34.5 H MCHC 35.8 RDW Std Deviation 46.3 H RDW Coeff of Cris 13.2 Plt Count 161 MPV 8.4 Immature Gran % (Auto) 0.000 Neut % (Auto) 16.2 L Lymph % (Auto) 35.8 [place] % (Auto) 44.6 H Eos % (Auto) 2.7 Baso % (Auto) 0.7 Absolute Neuts (auto) 0.2 L Absolute Lymphs (auto) 0.53 L Nucleated RBC % 0 Differential Comment Diff Path Review Reviewed Sodium 130 L Potassium 4.1 Chloride 95 L Carbon Dioxide 26.0 Anion Gap 9 BUN 16 Creatinine 1.16 Estim Creat Clear Calc 41.11 Est GFR (MDRD) Af Amer 77 Est GFR (MDRD) Non-Af 64 BUN/Creatinine Ratio 13.8 Glucose 77 Calcium 8.0 L Total Bilirubin 0.40 Direct Bilirubin 0.12 AST 64 H ALT 67 H Alkaline Phosphatase 65 Troponin I 0.032 Total Protein 6.7 Albumin 3.4 Globulin 3.3 Vitamin B12 Folate TSH Urine Color Urine Clarity Urine pH Ur Specific [place] Urine Protein Urine Glucose (UA) Urine Ketones Urine Occult Blood Urine Nitrite Urine Bilirubin Urine Urobilinogen Ur Leukocyte Esterase Urine RBC Urine WBC Ur Squamous Epith Cells Urine Bacteria Urine Mucus POC Glucose 79 12/11/20 12/12/20 12/12/20 18:04 06:24 06:24 WBC 1.7 L RBC 3.98 L Hgb 13.4 Hct 38.4 L MCV 96.5 H MCH 33.7 H MCHC 34.9 RDW Std Deviation 45.7 H RDW Coeff of Cris 13.2 Plt Count 154 MPV 8.5 Immature Gran % (Auto) 0.600 Neut % (Auto) 13.8 L Lymph % (Auto) 36.8 [place] % (Auto) 47.7 H Eos % (Auto) 1.1 Baso % (Auto) 0.0 Absolute Neuts (auto) 0.2 L Absolute Lymphs (auto) 0.64 L Nucleated RBC % 0 Differential Comment SCANNED Diff Path Review Sodium 130 L Potassium 3.8 Chloride 97 L Carbon Dioxide 26.0 Anion Gap 7 BUN 15 Creatinine 1.10 Estim Creat Clear Calc 43.35 Est GFR (MDRD) Af Amer 82 Est GFR (MDRD) Non-Af 68 BUN/Creatinine Ratio 13.6 Glucose 84 Calcium 8.0 L Total Bilirubin Direct Bilirubin AST ALT Alkaline Phosphatase Troponin I Total Protein Albumin Globulin Vitamin B12 Folate 12.00 TSH 2.24 Urine Color Yellow Urine Clarity Sl. Cloudy Urine pH 6.0 Ur Specific [place] 1.020 Urine Protein 15 H Urine Glucose (UA) Normal Urine Ketones Negative Urine Occult Blood 10 H Urine Nitrite Negative Urine Bilirubin Negative Urine Urobilinogen Normal Ur Leukocyte Esterase 25 H Urine RBC 0-5 SEEN Urine WBC 0-5 SEEN Ur Squamous Epith Cells 0-5 SEEN Urine Bacteria 0 SEEN Urine Mucus 0 SEEN POC Glucose 12/12/20 06:24 WBC RBC Hgb Hct MCV MCH MCHC RDW Std Deviation RDW Coeff of Cris Plt Count MPV Immature Gran % (Auto) Neut % (Auto) Lymph % (Auto) [place] % (Auto) Eos % (Auto) Baso % (Auto) Absolute Neuts (auto) Absolute Lymphs (auto) Nucleated RBC % Differential Comment Diff Path Review Sodium Potassium Chloride Carbon Dioxide Anion Gap BUN Creatinine Estim Creat Clear Calc Est GFR (MDRD) Af Amer Est GFR (MDRD) Non-Af BUN/Creatinine Ratio Glucose Calcium Total Bilirubin Direct Bilirubin AST ALT Alkaline Phosphatase Troponin I Total Protein Albumin Globulin Vitamin B12 656 Folate TSH Urine Color Urine Clarity Urine pH Ur Specific [place] Urine Protein Urine Glucose (UA) Urine Ketones Urine Occult Blood Urine Nitrite Urine Bilirubin Urine Urobilinogen Ur Leukocyte Esterase Urine RBC Urine WBC Ur Squamous Epith Cells Urine Bacteria Urine Mucus POC Glucose Micro: Microbiology 12/11/20 19:55 Mucosa - Nose SARS-CoV-2 Antigen (Rapid) - Final Radiography Diagnostic Testing: Radiology Impression Brain CT 12/11/20 17:12 IMPRESSION: No acute intracranial abnormality. Chronic involutional and ischemic changes of the brain. Electronically Signed: Randell Richardson MD at 18:41 EDT Tel , Service support , Chest X-Ray 12/11/20 18:06 IMPRESSION: Normal x-ray examination of the chest. Electronically Signed: Arun Gan MD at 18:22 EDT Tel , Service support , Physical Exam Const alert and no apparent distress Orientation / Consciousness: awake HEENT normocephalic and moist oral mucous membranes Eyes PERRL, EOMs intact bilaterally and conjunctivae normal Neck no lymphadenopathy Resp normal respiratory effort and clear to auscultation bilaterally Cardio regular rate, regular rhythm and no murmurs Peripheral Pulses: pulses 2+ throughout GI normal to inspection, nondistended, normoactive bowel sounds, non-tender and non-distended Extremity normal to inspection Skin no rashes or lesions noted Lesions: no lesions Rashes: no rashes Trauma: no lacerations or abrasions Neuro CN's II-XII intact bilaterally, no focal motor deficits, no sensory deficits noted and deep tendon reflexes 2+ bilaterally Psych Activity / Motor Behavior: restless Memory / Cognition: cognition impaired Assessment & Plan Assessment/Plan (1) Acute confusion: (2) Debility: PLAN: 1. Confusion, debility-brain CT unremarkable. Unable to have MRI due to cochlear implant. UA, chest x-ray unremarkable. No focal deficits noted. reports underlying mild confusion at baseline however acutely worsened confusion prior to admission. Obtain SOC neurology consult. PT/OT. amenable to SNF at discharge. 2. Right shoulder pain-chronic. To follow-up with pain management as outpa tient. 3. Chronic asthma-as needed albuterol aerosol. 4. Leukopenia-unclear etiology, trend labs. DVT prophylaxis-Lovenox subcu This patient was seen by Whitney Jesus NP-C under the supervision of Dr. Aguillon. Documented by User: Dr. Scarlet Aguillon DO 12/12/20 16:04 Subjective Subjective Mr. Cardoza was seen in conjunction with Whitney Jesus NP. I agree with the above and the following is a representation of my independent history or physical examination. Per discussion with the she has noticed some memory issues that have not been overtly dramatic in the last year or so. She states yesterday he was fine when he woke up in the morning but complained of dizziness which is a chronic is april for him. She states she got concerned when he tried to get up to a chair independently which she usually would call for help, had a fall in which he did not hit his head, and was dramatically weak in the legs and was not able to get up independently or with her help. She states he seemed somewhat dazed at that point as well. His initial vital signs in the emergency department were unremarkable but I am unaware of what his vital signs were upon squad arrival. His states he seems to be improved today but indicates she would not be able to take care of him at home. Objective Data Lab / Micro Data Result Diagrams: 12/12/20 06:24 12/12/20 06:24 Physical Exam Const Constitutional Narrative: Patient is currently sleeping on his right side, is at bedside, patient appears comfortable HEENT head/scalp atraumatic Head and Scalp: normocephalic Resp normal respiratory effort, no retractions, no use of accessory muscles and clear to auscultation bilaterally Cardio regular rate, regular rhythm, S1 normal heart sound, S2 normal heart sound, no murmurs, no rub, no gallops, no clicks and no JVD GI normal to inspection, nondistended, normoactive bowel sounds, soft to palpation, non-tender and non-distended Extremity normal to inspection and no clubbing, cyanosis or edema Peripheral Pulses: Yes pulses 2+ throughout Skin no rashes or lesions noted, no wounds, skin turgor normal, no jaundice, no petechiae and no mottling Neuro Neuro Narrative: Patient is sleeping soundly Psych Psych Narrative: Patient is sleeping soundly Assessment & Plan Assessment/Plan (1) Acute confusion: (2) Debility: (3) Encephalopathy: (4) Chronic hyponatremia: (5) Transaminitis: PLAN: Assessment: Encephalopathy Confusion Debility Mild temperature elevation Chronic leukopenia Transaminitis Chronic hyponatremia Diastolic dysfunction Asthma Chronic right shoulder pain Suspected dementia versus mild cognitive impairment [place] with cochlear implant and hearing aid Plan: -Check ammonia -Repeat CMP to reevaluate liver function in a.m. -Continue home inhalers -UA is unimpressive -CT of head shows chronic vascular ischemic changes but no acute changes -Chest x-ray was normal -Unclear etiology for mild temperature elevation--> no signs or symptoms of acute infection -Await neurology consult -? LP -Continue PT OT - is amenable to jail facility placement at discharge for rehab purposes Charges/Coding Visit Charges Inpatient E&M: 73944 Subs Hosp L2
[2020-12-12 17:26] LABS: Ammonia < 10.0 umol/L (11-32)
[2020-12-12] MEDS: Montelukast 10 MG Tablet PO (21:22)
[2020-12-13] VITALS (7 sets, daily range): BP systolic 122–156; BP diastolic 60–68; PULSE 82–114; RESP 12–18; TEMP 37.2–38; O2SAT 93–97
[2020-12-13 06:56] LABS: Absolute Lymphocyte Count 0.62 X10^3/uL (0.83-4.51); Absolute Neutrophil Count 0.3 X10^3/uL (2.0-7.7); Eosinophil# 0.01 X10^3/uL; Eosinophils% 0.6 % (0-5); Hematocrit 38.8 % (40-54); Hemoglobin 14.2 g/dL (13.0-16.5); Lymphocyte # 0.62 X10^3/ul (0.83-4.51); Lymphocyte % 39.7 % (19-41); Mean Corp Hgb Conc 36.6 g/dL (32-36); Mean Corpuscular Hgb 33.9 pg (27.0-32.0); Mean Corpuscular Volume 92.6 fL (80-94); Mean Platelet Vol. 8.5 fl (6.2-12.0); Monocyte# 0.68 X10^3/uL; Monocyte% 43.6 % (0-10); NRBC Flagged by Analyzer 0 % (0-5); Neutrophil # 0.25 X10^3/uL (2.7-7.7); Neutrophil % 16.1 % (47-70); POSITIVE DIFFERENTIAL YES; POSITIVE MORPHOLOGY YES; Platelet Count 137 K/mm3 (150-450); RBC Distribution Width CV 12.7 % (11.6-14.6); RBC Distribution Width SD 42.9 fl (35.1-43.9); Red Blood Count 4.19 M/mm3 (4.6-6.2); White Blood Count 1.6 K/mm3 (4.4-11.0)
[2020-12-13 06:57] LABS: Differential Indicated SCAN CRITERIA MET
[2020-12-13 07:47] LABS: AST(SGOT) 89 U/L (15-37); Alanine Aminotransfer ALT/SGPT 71 U/L (16-61); Albumin, Serum 3.2 g/dL (3.2-5.0); Alkaline Phosphatase 61 U/L (45-117); Anion Gap 9 (5-15); BUN 16 mg/dL (7-18); BUN/Creat Ratio 16.6 RATIO (10-20); Calcium,Total 7.8 mg/dL (8.5-10.1); Chloride 90 mmol/L (98-107); Creatinine, Serum 0.96 mg/dL (0.70-1.30); EST Glomerular Filtration Rate 79 mL/min (>60); Est Glom Filt Rate - Afr Amer 96 mL/min (>60); Estimated Creatinine Clearance 49.68 ml/min; Globulin 3.2 g/dL (2.2-4.2); Glucose 89 mg/dL (74-106); Potassium 3.8 mmol/L (3.5-5.1); Protein, Total 6.4 g/dL (6.4-8.2); Sodium Level 122 mmol/L (136-145)
[2020-12-13] MEDS: Budesonide Respules 0.5 MG/2 ML AMPUL.NEB. INHALATION (07:59)
[2020-12-13 08:55] LABS: Anion Gap 9 (5-15); BUN 17 mg/dL (7-18); BUN/Creat Ratio 15.9 RATIO (10-20); Calcium,Total 7.7 mg/dL (8.5-10.1); Chloride 90 mmol/L (98-107); Creatinine, Serum 1.07 mg/dL (0.70-1.30); EST Glomerular Filtration Rate 70 mL/min (>60); Est Glom Filt Rate - Afr Amer 85 mL/min (>60); Estimated Creatinine Clearance 44.57 ml/min; Glucose 90 mg/dL (74-106); Potassium 3.7 mmol/L (3.5-5.1); Sodium Level 122 mmol/L (136-145)
--- NOTE | 2020-12-13 09:57 | CASEMGMT ---
Addendum entered by Ivon Felix 12/13/20 15:18: SW placed a call to at [facility] and left message regarding referral. Addendum entered by Ivon Felix 12/13/20 13:48: SW received call from Jackelyn at [facility] stating they are not able to accept pt. SW in to speak with pt's Sayda, next choice for SNF is [facility]. SW placed a call to in admissions and left message regarding referral. SW faxed referral to [facility]. Addendum entered by Ivon Felix 12/13/20 12:59: SW placed a call to Jackelyn at [facility] and left message regarding referral. Original Note: Social Work Note SW in to speak with pt and pt's Sayda. Sayda confirms [facility] told her yesterday that they are not able to accept pt. Sayda states second choice is now W. SYDNIE placed a call to Jackelyn at [facility] and left message regarding referral. SYDNIE faxed referral. Plan: SNF Ivon Felix LIBRARY SCIENCE PROFESSOR, COIN COUNTER AND WRAPPER
--- NOTE | 2020-12-13 10:40 | PCM.PN.HOSP ---
Documented by User: Whitney Jesus NP, RESIDENTIAL CARE FACILITY MANAGER-C 12/13/20 10:50 Subjective Subjective Patient seen and examined. Drowsy this morning. Remains confused. at bedside. is concerned that patient has not yet eaten breakfast. No new symptoms or complaints. No focal neurologic deficits. Objective Data Objective Data Vital Signs: Vital Signs Temp Pulse Resp BP Pulse Ox 100 F H 82 18 142/68 H 96 12/13/20 08:28 12/13/20 08:28 12/13/20 08:28 12/13/20 08:28 12/13/20 08:28 Oxygen Delivery Method Room Air Weight: 131 lb 6.328 oz Body Mass Index (BMI) 22.5 Intake & Output: Intake and Output for Last 24 Hours 12/11/20 12/12/20 12/13/20 23:59 23:59 23:59 Intake Total 302.5 / 402.5 1750 / 1750 100 / 100 Output Total 1100 / 1100 Balance 302.5 / 302.5 650 / 650 100 / 100 Lab / Micro Data Result Diagrams: 12/13/20 06:45 12/13/20 11:20 Labs: Laboratory Results - last 24 hr 12/11/20 12/12/20 12/13/20 17:20 16:44 06:45 WBC 1.6 L RBC 4.19 L Hgb 14.2 Hct 38.8 L MCV 92.6 MCH 33.9 H MCHC 36.6 H RDW Std Deviation 42.9 RDW Coeff of Cris 12.7 Plt Count 137 L MPV 8.5 Immature Gran % (Auto) 0.000 Neut % (Auto) 16.1 L Lymph % (Auto) 39.7 [place] % (Auto) 43.6 H Eos % (Auto) 0.6 Baso % (Auto) 0.0 Absolute Neuts (auto) 0.3 L Absolute Lymphs (auto) 0.62 L Nucleated RBC % 0 [address] Review Reviewed Sodium Potassium Chloride Carbon Dioxide Anion Gap BUN Creatinine Estim Creat Clear Calc Est GFR (MDRD) Af Amer Est GFR (MDRD) Non-Af BUN/Creatinine Ratio Glucose Calcium Total Bilirubin AST ALT Alkaline Phosphatase Ammonia < 10.0 L Total Protein Albumin Globulin Albumin/Globulin Ratio 12/13/20 12/13/20 06:45 08:30 WBC RBC Hgb Hct MCV MCH MCHC RDW Std Deviation RDW Coeff of Cris Plt Count MPV Immature Gran % (Auto) Neut % (Auto) Lymph % (Auto) [place] % (Auto) Eos % (Auto) Baso % (Auto) Absolute Neuts (auto) Absolute Lymphs (auto) Nucleated RBC % Diff Path Review Sodium 122 L 122 L Potassium 3.8 3.7 Chloride 90 L 90 L Carbon Dioxide 23.0 23.0 Anion Gap 9 9 BUN 16 17 Creatinine 0.96 1.07 Estim Creat Clear Calc 49.68 44.57 Est GFR (MDRD) Af Amer 96 85 Est GFR (MDRD) Non-Af 79 70 BUN/Creatinine Ratio 16.6 15.9 Glucose 89 90 Calcium 7.8 L 7.7 L Total Bilirubin 0.40 AST 89 H ALT 71 H Alkaline Phosphatase 61 Ammonia Total Protein 6.4 Albumin 3.2 Globulin 3.2 Albumin/Globulin Ratio 1.0 Micro: Microbiology 12/11/20 19:55 Mucosa - Nose SARS-CoV-2 Antigen (Rapid) - Final Physical Exam Const Constitutional Narrative: Drowsy, confused. HEENT normocephalic and moist oral mucous membranes Eyes PERRL, EOMs intact bilaterally and conjunctivae normal Neck no lymphadenopathy Resp normal respiratory effort and clear to auscultation bilaterally Cardio regular rate, regular rhythm and no murmurs Peripheral Pulses: pulses 2+ throughout GI normal to inspection, nondistended, normoactive bowel sounds, non-tender and non-distended Extremity normal to inspection Skin no rashes or lesions noted Lesions: no lesions Rashes: no rashes Trauma: no lacerations or abrasions Neuro CN's II-XII intact bilaterally, no focal motor deficits, no sensory deficits noted and deep tendon reflexes 2+ bilaterally Psych mental status grossly normal Memory / Cognition: cognition impaired Assessment & Plan Assessment/Plan (1) Encephalopathy: (2) Debility: PLAN: 1. Confusion, debility, low-grade fever-brain CT unremarkable. Unable to have MRI due to cochlear implant. UA, chest x-ray unremarkable. No focal deficits noted. reports underlying mild confusion at baseline however acutely worsened confusion prior to admission. Awaiting SOC neurology consult. PT/OT. amenable to SNF at discharge. EEG ordered. Consider possible LP pending neuro consult. 2. Hyponatremia-obtain urine studies, every 4 hour BMP. IV fluids. 3. Transaminitis-unclear etiology. Ammonia level normal. Obtain liver ultrasound. 4. Right shoulder pain-chronic. To follow-up with pain management as outpatient. 5. Chronic asthma-as needed albuterol aerosol. 4. Leukopenia-appears chronic, trend labs. DVT prophylaxis-Lovenox subcu This patient was seen by Whitney Jesus NP-C under the supervision of Dr. Aguillon. Documented by User: Dr. Scarlet Aguillon DO 12/13/20 14:08 Subjective Subjective The patient was seen in conjunction with Whitney eJsus NP. I agree with the above and the following is representation my independent history and physical examination. Patient had some intermittent agitation overnight but was better than the previous night. His is at the bedside and states that his oral intake has been poor. She indicates he really got crazy yesterday afternoon with regards to his behavior. She is concerned because neurology has not yet evaluated the patient. Objective Data Lab / Micro Data Result Diagrams: 12/13/20 06:45 12/13/20 11:20 Assessment & Plan Assessment/Plan (1) Encephalopathy: (2) SIADH (syndrome of inappropriate ADH production): (3) Acute confusion: (4) Essential hypertension: (5) Hyponatremia: (6) Transaminitis: (7) Chronic hyponatremia: PLAN: Assessment: Encephalopathy Confusion Debility Mild temperature elevation Chronic leukopenia Transaminitis Acute on Chronic hyponatremia Diastolic dysfunction Asthma Chronic right shoulder pain Suspected dementia versus mild cognitive impairment TUOLUMNE with cochlear implant and hearing aid Poor PO intake Plan: -ammonia WNL -serial Na q 4 -Urine and Sodium Osm/Urine Na looks like SIADH -Check Uric acid -only med that he is getting that could contribute is Lovenox--> will hold and use SCD alone -fluid restrict to 1500 cc/daily -May need IV fluids and Lasix combined if does not improve with fluid restriction -check CT chest -consult Nephro--> may need Vaptan -Continue home inhalers -UA is unimpressive and patient is concentrating urine without problem -Ultrasound right upper quadrant is pending -CT of head shows chronic vascular ischemic changes but no acute changes -Chest x-ray was normal -Unclear etiology for mild temperature elevation--> no signs or symptoms of acute infection -Await neurology consult--> consult has still not been completed we are following up on this -? LP -Continue PT OT - is amenable to residential facility placement at discharge for rehab purposes Charges/Coding Visit Charges Inpatient E&M: 23379 Subs Hosp L3
--- NOTE | 2020-12-13 10:45 | US_ITS ---
STUDY: ABDOMINAL ULTRASOUND - RIGHT UPPER QUADRANT REASON FOR VISIT: Male, 80 years old Transaminitis -- needs to be portable- will do after 1:00 TECHNIQUE: Ultrasound evaluation of the right upper quadrant was performed with real-time and static kolb-scale imaging. TECHNICAL QUALITY: Adequate. COMPARISON: None. FINDINGS: The examination is very limited due to patient''s condition. However the liver is normal in size and echogenicity it measures 14.9 cm slightly fatty. No focal lesion noted. The gallbladder is contracted no evidence of gallstones. The gallbladder wall measures 3 mm. The CBD measures about 7 mm. there is no dilatation of the intrahepatic biliary system. The pancreas is not seen well because of the presence of gas. The right kidney measures 10.5 x 4.6 x 3.9 cm with the renal cortex 1.1 cm. No hydronephrosis or stone formation. US/Liver IMPRESSION: Limited but grossly negative study Electronically Signed: Alexandria Ya, at 16:03 EDT Tel , Service support ,
[2020-12-13 10:58] LABS: Mucous, Urine 0 SEEN /hpf (<or=2+)
[2020-12-13 11:02] LABS: Color, Urine Yellow (Yellow); Glucose, Dipstick Normal (Normal); Leukocyte Esterase-Dipstick 25 /ul (Negative); Nitrite-Dipstick Negative (Negative); Occult Blood-Urine 25 /ul (Negative); Protein-Dipstick 30 mg/dl (Negative); Urine Bilirubin Dipstick Negative (Negative); Urine Clarity Clear (Clear); Urine Urobilinogen Normal (Normal)
[2020-12-13 11:07] LABS: Urine Sodium 95 mmol/L (Not Establ.)
[2020-12-13 11:11] LABS: Ketone-Dipstick 150 mg/dl (Negative)
[2020-12-13 11:13] LABS: Bacteria RARE /hpf (None Seen); Red Blood Cells-Urine 0-5 SEEN /hpf (0-5); Squamous Epithelial Cells - UA 0-5 SEEN /hpf (0-5); White Blood Cells 0-5 SEEN /hpf (0-5)
[2020-12-13] MEDS: Menthol/Lanolin/Calamine/Znox 113 GM Tube 1 APPLIC TOPICAL ×2 (11:25→21:10)
[2020-12-13] MEDS: Enoxaparin 40 MG/0.4 ML Syringe SC (11:25)
[2020-12-13] MEDS: 0.9% Saline Lock 10 ML Syringe IV ×3 (11:27→22:29)
[2020-12-13 11:52] LABS: Sodium Level 122 mmol/L (136-145)
[2020-12-13] MEDS: 0.9% Normal Saline 1,000 ML 75 ML IV (11:56)
[2020-12-13 12:04] LABS: Osmolality, Urine 698 mOsm/KG
[2020-12-13 12:12] LABS: Osmolality, Serum 256 mOsm/KG (280-301)
--- NOTE | 2020-12-13 14:01 | CT_ITS ---
STUDY: CT CHEST WITHOUT CONTRAST REASON FOR EXAM: Male, 80 years old. Rule out malignancy. Shortness of breath. RADIATION DOSAGE (If Supplied By Facility): CTDIvol = ( 14.37 ) mGy, DLP = ( 477.43 ) mGycm TECHNIQUE: Transaxial imaging was performed without the administration of intravenous contrast material. Multiplanar coronal and sagittal images were reformatted. Individualized dose optimization techniques were used for this CT. COMPARISON: Chest, 12/11/2020. FINDINGS: The lungs are normal. There is no demonstrated pleural abnormality. Normal heart and pericardium. Particularly Nonspecific subcentimeter mediastinal lymphadenopathy. There is a larger paratracheal lymph node measuring 1.8 x 1.8 x 1.5 cm it demonstrates a fatty center. Normal hilar regions. Normal unenhanced pulmonary arteries. There is atherosclerotic calcification of the aortic arch with tortuosity and elongation of the aortic arch and descending thoracic aorta. There are multi-level degenerative changes of the thoracic spine. There is no demonstrated abnormality of the visualized upper abdomen. CT/Chest without Contrast IMPRESSION: 1. Atherosclerotic changes of the aorta and coronary arteries. 2. Nonspecific mediastinal lymphadenopathy. 3. No acute pulmonary disease. Electronically Signed: Gilson Shah DO at 16:36 EDT Tel [phone], Service support ,
--- NOTE | 2020-12-13 14:50 | PCM.CONS.R ---
Assessment & Plan Assessment/Plan (1) Hyponatremia: PLAN: Reviewed records from primary care physician's office. His sodium was normal as of May 2020. Presented with a sodium of 130. Received fluids and today is down to 122. Urine osmolality almost 700. Urine sodium 95. Labs are consistent with SIADH. Volume status appears okay. TSH and cortisol are normal. Chest x-ray is clear. All his blood counts were normal in May. Currently has leukopenia and worsening thrombocytopenia. Etiology of altered mental status is likely some cerebral pathology. Most likely SIADH related to intracranial events. for treatment he has elevated LFTs. hence will hold vaptans try salt tablets and lasix PO dw Dr Aguillon (2) SIADH (syndrome of inappropriate ADH production): HPI Consult Data Date of Consult: 12/13/20 HPI Narrative HPI Narrative: 80-year-old male patient presented to the hospital with complaints of altered mental status. Patient is presently confused, most of the history is from the . Apparently he is in his usual state of health up until late last week. Since the last 3 days, he has become progressively confused, stopped eating and drinking. Presented to the ER. Initial CT head negative. No edema. Nephrology consulted for hyponatremia. Sodium is down to 122 today. [facility] Medical History (Updated 12/13/20 @ 13:[address] Scarlet Aguillon, DO) Bilateral carotid artery stenosis Cochlear implant in place Essential hypertension Leukopenia Non-rheumatic aortic regurgitation Non-rheumatic mitral regurgitation Vasovagal syncope Home Medications montelukast 10 mg tablet 10 mg PO QHS 12/03/18 [History Last Taken 12/10/20] triamcinolone acetonide 55 mcg nasal spray aerosol 1 spray INTRANASAL DAILY PRN 12/03/18 [History Last Taken Unknown] albuterol sulfate 90 mcg/actuation aerosol inhaler 2 puff INHALATION Q4H PRN #18 g 09/21/19 [Rx Last Taken 12/10/20] fluticasone 113 mcg-salmeterol 14 mcg/actuation breath activated powdr 1 inh INHALATION BID #1 ea 02/29/20 [Rx Last Taken 12/10/20] meloxicam 7.5 mg PO DAILY 12/11/20 [History Last Taken Unknown] tramadol 50 mg PO Q8 PRN 12/11/20 [History Last Taken 12/10/20] Allergy/AdvReac Type Severity Reaction Status Date / Time No Known Allergies Allergy Verified 12/11/20 17:04 Family History Mother Cancer ovarian Social History Smoking Status: Never smoker alcohol intake: never substance use type: does not use caffeine: Yes Type: tea Number of servings: 1 what type of physical activity do you participate in: none seatbelt use: always do you feel safe at home: Yes ROS Review of Systems ROS Unobtainable: due to endotracheal tube, due to mental condition, due to mental status and other Physical Exam Narrative Confused no obvious distress no pallor no icterus no JVD s1s2 no murmurs lungs clear abdomen soft no organomegaly no edema no cyanosis Lab / Micro Data Result Diagrams: 12/13/20 06:45 12/13/20 11:20 Labs: Laboratory Results - last 24 hr 12/12/20 12/13/20 12/13/20 16:44 06:45 06:45 WBC 1.6 L RBC 4.19 L Hgb 14.2 Hct 38.8 L MCV 92.6 MCH 33.9 H MCHC 36.6 H RDW Std Deviation 42.9 RDW Coeff of Cris 12.7 Plt Count 137 L MPV 8.5 Immature Gran % (Auto) 0.000 Neut % (Auto) 16.1 L Lymph % (Auto) 39.7 [place] % (Auto) 43.6 H Eos % (Auto) 0.6 Baso % (Auto) 0.0 Absolute Neuts (auto) 0.3 L Absolute Lymphs (auto) 0.62 L Nucleated RBC % 0 Sodium 122 L Potassium 3.8 Chloride 90 L Carbon Dioxide 23.0 Anion Gap 9 BUN 16 Creatinine 0.96 Estim Creat Clear Calc 49.68 Est GFR (MDRD) Af Amer 96 Est GFR (MDRD) Non-Af 79 BUN/Creatinine Ratio 16.6 Glucose 89 Serum Osmolality Calcium 7.8 L Total Bilirubin 0.40 AST 89 H ALT 71 H Alkaline Phosphatase 61 Ammonia < 10.0 L Total Protein 6.4 Albumin 3.2 Globulin 3.2 Albumin/Globulin Ratio 1.0 Cortisol Urine Color Urine Clarity Urine pH Ur Specific [place] Urine Protein Urine Glucose (UA) Urine Ketones Urine Occult Blood Urine Nitrite Urine Bilirubin Urine Urobilinogen Ur Leukocyte Esterase Urine RBC Urine WBC Ur Squamous Epith Cells Urine Bacteria Urine Mucus Urine Osmolality Ur Random Sodium 12/13/20 12/13/20 12/13/20 08:30 10:48 10:48 WBC RBC Hgb Hct MCV MCH MCHC RDW Std Deviation RDW Coeff of Cris Plt Count MPV Immature Gran % (Auto) Neut % (Auto) Lymph % (Auto) [place] % (Auto) Eos % (Auto) Baso % (Auto) Absolute Neuts (auto) Absolute Lymphs (auto) Nucleated RBC % Sodium 122 L Potassium 3.7 Chloride 90 L Carbon Dioxide 23.0 Anion Gap 9 BUN 17 Creatinine 1.07 Estim Creat Clear Calc 44.57 Est GFR (MDRD) Af Amer 85 Est GFR (MDRD) Non-Af 70 BUN/Creatinine Ratio 15.9 Glucose 90 Serum Osmolality Calcium 7.7 L Total Bilirubin AST ALT Alkaline Phosphatase Ammonia Total Protein Albumin Globulin Albumin/Globulin Ratio Cortisol Urine Color Yellow Urine Clarity Clear Urine pH 5.0 Ur Specific [place] 1.020 Urine Protein 30 H Urine Glucose (UA) Normal Urine Ketones 150 A* Urine Occult Blood 25 H Urine Nitrite Negative Urine Bilirubin Negative Urine Urobilinogen Normal Ur Leukocyte Esterase 25 H Urine RBC 0-5 SEEN Urine WBC 0-5 SEEN Ur Squamous Epith Cells 0-5 SEEN Urine Bacteria RARE Urine Mucus 0 SEEN Urine Osmolality 698 Ur Random Sodium 95 12/13/20 12/13/20 12/13/20 11:20 11:20 11:20 WBC RBC Hgb Hct MCV MCH MCHC RDW Std Deviation RDW Coeff of Cris Plt Count MPV Immature Gran % (Auto) Neut % (Auto) Lymph % (Auto) [place] % (Auto) Eos % (Auto) Baso % (Auto) Absolute Neuts (auto) Absolute Lymphs (auto) Nucleated RBC % Sodium 122 L Potassium Chloride Carbon Dioxide Anion Gap BUN Creatinine Estim Creat Clear Calc Est GFR (MDRD) Af Amer Est GFR (MDRD) Non-Af BUN/Creatinine Ratio Glucose Serum Osmolality 256 L Calcium Total Bilirubin AST ALT Alkaline Phosphatase Ammonia Total Protein Albumin Globulin Albumin/Globulin Ratio Cortisol 13.00 Urine Color Urine Clarity Urine pH Ur Specific [place] Urine Protein Urine Glucose (UA) Urine Ketones Urine Occult Blood Urine Nitrite Urine Bilirubin Urine Urobilinogen Ur Leukocyte Esterase Urine RBC Urine WBC Ur Squamous Epith Cells Urine Bacteria Urine Mucus Urine Osmolality Ur Random Sodium
[2020-12-13 15:01] LABS: Uric Acid 4.6 mg/dL (3.5-7.2)
--- NOTE | 2020-12-13 16:04 | CASEMGMT ---
Social Work Note SYDNIE received message from at [facility] stating they have no beds available at this time. SW in to speak with pt's Sayda. SW updated Sayda that [facility] is not able to accept pt. Sayda asked about HHC, SW explained HHC. Sayda would like to review the SNF list again tonight. Patient (and/or patient?s family) was provided a list of SNF providers including quality and resource use data and consistent with the patient?s preferred geographic region, medical needs, and insurance network. SNF list for both [facility] was provided to Sayda per her requests. SW to follow up with Sayda tomorrow. Plan: SNF pending acceptance Ivon Felix CLAMP OPERATOR, HIRED WORKER
[2020-12-13] MEDS: Furosemide 20 MG Tablet PO (16:10)
[2020-12-13] MEDS: Sodium Chloride 1 GM Tablet 2 GM PO ×2 (16:10→22:31)
[2020-12-13 17:27] LABS: Sodium Level 124 mmol/L (136-145)
--- NOTE | 2020-12-13 17:39 | ECHOD_ITS ---
Reason For Study: TIA/CVA Procedure This was a 2D Doppler, Color Flow transthoracic echocardiogram. The study was technically difficult. Exam performed portable in patient room. Left Ventricle Mildly dilated left ventricle. The estimated ejection fraction is EF calculated 44 %. Right Ventricle Normal right ventricle. Normal systolic function. Atria Normal left atrium. Normal right atrium. Mitral Valve The mitral valve is structurally normal. No prolapse or stenosis seen. Trivial mitral valve insufficiency. Tricuspid Valve Normal tricuspid valve. Trivial eccentric tricuspid valve insufficiency. Aortic Valve Aortic sclerosis, no stenosis. Mild (1+) aortic valve insufficiency. Pulmonic Valve The pulmonic valve is not well visualized. Great Vessels Normal aortic root. Pericardium/Pleural No pericardial effusion. Medication Previously negative bubble study on echo. MMode/2D Measurements & Calculations LVIDd: 3.8 cm IVSd: 1.3 cm Ao root diam: 3.6 cm LVIDs: 2.9 cm LVPWd: 1.2 cm RVDd: 2.4 cm FS: 24.8 % LVAd ap4: 9.1 cm2 LA A4 area: 8.9 cm2 LA dimension(2D): 3.1 cm LVLd ap4: 3.3 cm EDV(MOD-sp4): 21.9 ml EDV(sp4-el): 21.2 ml RA A4 area: 10.3 cm2 Time Measurements MV dec time: 0.27 sec Doppler Measurements & Calculations MV E max preeti: 57.8 cm/sec Ao V2 max: 100.8 cm/sec AI max preeti: 277.0 cm/sec MV A max preeti: 81.6 cm/sec Ao max P.1 mmHg AI max P.7 mmHg MV E/A: 0.71 AI dec slope: 194.8 cm/sec2 AI P1/2t: 416.5 msec LV V1 max: 81.3 cm/sec LV V1 max P.6 mmHg ECHO/Echo Complete Interpretation Summary The estimated ejection fraction is EF calculated 44 %. Mild to moderate LV systolic function in comparison to last Echo 04/13/2019(,(EF 55%) Grade #I diastolic Dysfuncthion Mild AI Trivial MR Trivial TR Ordering Physician: Whitney Jesus Referring Physician: ALBINA VELIZ Performed By: Rula Ivory, RDCS, RVT
--- NOTE | 2020-12-13 17:40 | CT_ITS ---
STUDY: CT BRAIN WITH AND WITHOUT CONTRAST REASON FOR EXAM: Male, 80 years old. Encephalopathy. Rule out metastatic disease. RADIATION DOSAGE (If Supplied By Facility): CTDIvol = ( 31.78 ) mGy, DLP = ( 2393.62 ) mGycm TECHNIQUE: Transaxial CT imaging of the brain was performed pre and post contrast administration. The examination was performed with intravenous administration of IV 100mL Isovue-370. Individualized dose optimization techniques were used for this CT. COMPARISON: 12/11/2020. FINDINGS: The study is limited due to scatter artifact from cochlear implant. Normal soft tissue structures. Normal calvarium. Normal size ventricles and extra-axial spaces for the patient''s age. Normal white matter tracts of the cerebral hemispheres. There are small punctate calcifications of the basal ganglia which are seen in the aging brain as a normal variant. Normal brainstem. Normal cerebellum. There is no intracranial hemorrhage. There are no findings of an acute ischemic infarction. There is no evidence of abnormal enhancing lesion. The intracranial vasculature appears grossly normal. Normal visualized paranasal sinuses. CT/Brain/Head W/WO Contrast IMPRESSION: 1. No evidence of acute intracranial or calvarial abnormality. Electronically Signed: Gilson Shah DO at 21:00 EDT Tel [phone], Service support ,
--- NOTE | 2020-12-13 17:42 | CT_ITS ---
STUDY: CTA HEAD AND NECK WITH CONTRAST REASON FOR EXAM: Male, 80 years old. Stroke. RADIATION DOSAGE (If Supplied By Facility): CTDIvol = ( 31.78 ) mGy, DLP = ( 2393.62 ) mGycm TECHNIQUE: CT angiography was performed with a multi-detector CT scanner. Data acquisition was obtained from the skull base through the vertex following intravenous administration of IV 100mL Isovue-370. MIP images were reconstructed from the axial data set. Post-processing of the angiographic images was performed, with multiplanar reformation and 3D reconstruction. Individualized dose optimization techniques were used for this CT. COMPARISON: CT of the head, 12/13/2020. FINDINGS: Normal bilateral petrous carotid arteries. Normal right cavernous carotid artery with a normal supraclinoid bifurcation. Normal left cavernous carotid artery with a normal supraclinoid bifurcation. Normal right A1 segments of the anterior cerebral artery. Normal left A1 segments of the anterior cerebral artery. There is non-visualization of the anterior communicating artery (ACOM). Normal bilateral A2 segments of the anterior cerebral arteries. Normal right M1 and M2 segments of the middle cerebral arteries, with a normal M1 bifurcation. Normal left M1 and M2 segments of the middle cerebral arteries, with a normal M1 bifurcation. Normal right posterior communicating artery (PCOM). Normal left posterior communicating artery (PCOM). Normal bilateral vertebral arteries. Normal basilar artery with a normal basilar bifurcation. The visualized bilateral superior cerebellar (SCA) arteries are normal. Normal bilateral P1, P2 and visualized P3 segments of the posterior cerebral arteries. There is no demonstrated aneurysm of the [place]. There is no demonstrated abnormality of the visualized brain. AORTIC ARCH: Atherosclerotic changes of the aortic arch. Normal origins of the brachiocephalic, left common carotid, and left subclavian arteries. RIGHT CAROTID ARTERIES: Normal right common carotid artery (CCA). There is calcifications at the carotid bifurcation without significant stenosis. Mild calcifications at the origin of the right internal carotid (ICA) artery without a hemodynamically significant stenosis. Normal visualized cervical portion of the right internal carotid artery. Normal origin of the right external carotid artery (ECA). LEFT CAROTID ARTERIES: Normal left common carotid artery (CCA). Atherosclerotic changes of the carotid bifurcation extending into the bulb without significant stenosis. Normal origin of the left internal carotid (ICA) artery without a hemodynamically significant stenosis. Normal visualized cervical portion of the left internal carotid artery. Normal origin of the left external carotid artery (ECA). VERTEBRAL ARTERIES: Normal bilateral vertebral arteries. CT/CTA Head AND Neck W/ Contrast IMPRESSION: 1. Normal cervical lordosis and intracranial vasculature. 2. Bilateral carotid plaque without significant stenosis. 3. Normal vertebral arteries. Electronically Signed: Gilson Shah DO at 21:17 EDT Tel [phone], Service support ,
[2020-12-13] MEDS: LORazepam 2 MG/ML Syringe 0.5 MG IV (19:21)
[2020-12-13] MEDS: QUEtiapine 25 MG Tablet PO (19:21)
[2020-12-13 20:56] LABS: Sodium Level 123 mmol/L (136-145)
[2020-12-13] MEDS: Acetaminophen 325 MG Tablet 650 MG PO (22:32)
[2020-12-13] MEDS: Montelukast 10 MG Tablet PO (22:34)
[2020-12-14] VITALS (17 sets, daily range): BP systolic 95–133; BP diastolic 43–66; PULSE 74–106; RESP 15–97; TEMP 36.8–37.2; O2SAT 92–100
[2020-12-14 00:34] LABS: Sodium Level 125 mmol/L (136-145)
[2020-12-14 02:15] LABS: Sodium Level 125 mmol/L (136-145)
[2020-12-14] MEDS: Sodium Chloride 1 GM Tablet 2 GM PO ×3 (05:07→19:35)
[2020-12-14] MEDS: 0.9% Saline Lock 10 ML Syringe IV (05:55)
[2020-12-14 06:04] LABS: Absolute Lymphocyte Count 0.91 X10^3/uL (0.83-4.51); Absolute Neutrophil Count 0.8 X10^3/uL (2.0-7.7); Eosinophil# 0.01 X10^3/uL; Eosinophils% 0.4 % (0-5); Hematocrit 41.6 % (40-54); Hemoglobin 15.4 g/dL (13.0-16.5); Lymphocyte # 0.91 X10^3/ul (0.83-4.51); Lymphocyte % 39.1 % (19-41); Mean Corpuscular Hgb 34.3 pg (27.0-32.0); Mean Corpuscular Volume 92.7 fL (80-94); Mean Platelet Vol. 8.5 fl (6.2-12.0); Monocyte% 25.8 % (0-10); NRBC Flagged by Analyzer 0 % (0-5); Neutrophil % 34.3 % (47-70); POSITIVE DIFFERENTIAL YES; POSITIVE MORPHOLOGY YES; Platelet Count 132 K/mm3 (150-450); RBC Distribution Width CV 13.2 % (11.6-14.6); RBC Distribution Width SD 44.7 fl (35.1-43.9); Red Blood Count 4.49 M/mm3 (4.6-6.2); White Blood Count 2.3 K/mm3 (4.4-11.0)
[2020-12-14 06:05] LABS: Differential Indicated SCAN CRITERIA MET
[2020-12-14 06:22] LABS: Differential Comment SCANNED
[2020-12-14 06:27] LABS: Atypical Lymphocyte 1+ %
[2020-12-14 06:34] LABS: ALB/GLOB Ratio 0.9 RATIO (0.9-2.4); AST(SGOT) 110 U/L (15-37); Alanine Aminotransfer ALT/SGPT 74 U/L (16-61); Albumin, Serum 3.2 g/dL (3.2-5.0); Alkaline Phosphatase 62 U/L (45-117); Anion Gap 11 (5-15); BUN 20 mg/dL (7-18); BUN/Creat Ratio 16.1 RATIO (10-20); Calcium,Total 7.8 mg/dL (8.5-10.1); Chloride 93 mmol/L (98-107); Cholesterol 121 mg/dL (200); Creatinine, Serum 1.24 mg/dL (0.70-1.30); EST Glomerular Filtration Rate 59 mL/min (>60); Est Glom Filt Rate - Afr Amer 72 mL/min (>60); Estimated Creatinine Clearance 38.46 ml/min; Globulin 3.4 g/dL (2.2-4.2); Glucose 102 mg/dL (74-106); High Density Lipoprotein 35 mg/dL; Potassium 3.6 mmol/L (3.5-5.1); Protein, Total 6.6 g/dL (6.4-8.2); Sodium Level 124 mmol/L (136-145); Triglycerides 96 mg/dL; Very Low Density Lipoprotein 19 mg/dL (5-40)
--- NOTE | 2020-12-14 07:00 | RAD_ITS ---
Under fluoroscopic control, 22 spinal needle was introduced into the subarachnoid space at the level of L3-4. 12 cc of clear CSF were collected and sent to the lab for assessment. RAD/Fluoro Guided Lumbar Puncture IMPRESSION: Uneventful lumbar puncture. Electronically Signed: Alexandria Ya, at 15:14 EDT Tel , Service support ,
--- NOTE | 2020-12-14 07:41 | RAD.NOTE ---
TESTING - To see if Rad Techs have the capability to use this function
[2020-12-14 10:01] LABS: Sodium Level 126 mmol/L (136-145)
--- NOTE | 2020-12-14 10:10 | PCM.CONS.GEN ---
Assessment & Plan Assessment/Plan (1) Transaminitis: (2) Hyponatremia: (3) Encephalopathy: PLAN: Unclear cause. Agree with neurology recs, plan for LP. On empiric acyclovir. Remains neutropenic, but improving. If he has temp 100.5 or higher, would check bcx x2, cxr, UA/Ucx, and start vanc/cefepime. Will follow, thank you, d/w Dr. Aguillon (4) Neutropenia: HPI Consult Data Date of Consult: 12/14/20 HPI Narrative HPI Narrative: EVERETT ORTIZ, is a 80 M who presented 12/11 with acute onset that AM of dizziness, lethargy. No c/o headache, neck pain, fever, oral ulcers. No h.o cold sores or HSV. No recent travel, bug bites. Has not gotten covid shot. thinks she had covid in June, was asymptomatic. Came to ED, admitted with neutropenia. No fever here, started on acyclovir and neurology consulted. LP planned. Unable to obtain ROS due to mental status. [facility] Medical History Bilateral carotid artery stenosis Cochlear implant in place Essential hypertension Leukopenia Non-rheumatic aortic regurgitation Non-rheumatic mitral regurgitation Vasovagal syncope Home Medications montelukast 10 mg tablet 10 mg PO QHS 12/03/18 [History Last Taken 12/10/20] triamcinolone acetonide 55 mcg nasal spray aerosol 1 spray INTRANASAL DAILY PRN 12/03/18 [History Last Taken Unknown] albuterol sulfate 90 mcg/actuation aerosol inhaler 2 puff INHALATION Q4H PRN #18 g 09/21/19 [Rx Last Taken 12/10/20] fluticasone 113 mcg-salmeterol 14 mcg/actuation breath activated powdr 1 inh INHALATION BID #1 ea 02/29/20 [Rx Last Taken 12/10/20] meloxicam 7.5 mg PO DAILY 12/11/20 [History Last Taken Unknown] tramadol 50 mg PO Q8 PRN 12/11/20 [History Last Taken 12/10/20] Allergy/AdvReac Type Severity Reaction Status Date / Time No Known Allergies Allergy Verified 12/11/20 17:04 Family History Mother Cancer ovarian Social History Smoking Status: Never smoker alcohol intake: never substance use type: does not use caffeine: Yes Type: tea Number of servings: 1 what type of physical activity do you participate in: none seatbelt use: always do you feel safe at home: Yes Physical Exam Const General Appearance: lethargic HEENT normocephalic and head/scalp atraumatic Eyes PERRL and EOMs intact bilaterally Neck supple and No nodes Resp normal air movement and clear to auscultation bilaterally Cardio regular rate and regular rhythm GI normal to inspection, nondistended, normoactive bowel sounds Extremity no clubbing, cyanosis or edema Skin no rashes or lesions noted Neuro CN's II-XII intact bilaterally Lab / Micro Data Result Diagrams: 12/14/20 05:58 12/14/20 09:46 Labs: Laboratory Results - last 24 hr 12/13/20 12/13/20 12/13/20 06:45 10:48 10:48 WBC RBC Hgb Hct MCV MCH MCHC RDW Std Deviation RDW Coeff of Cris Plt Count MPV Immature Gran % (Auto) Neut % (Auto) Lymph % (Auto) [place] % (Auto) Eos % (Auto) Baso % (Auto) Absolute Neuts (auto) Absolute Lymphs (auto) Nucleated RBC % Differential Comment Atypical Lymphocytes Sodium Potassium Chloride Carbon Dioxide Anion Gap BUN Creatinine Estim Creat Clear Calc Est GFR (MDRD) Af Amer Est GFR (MDRD) Non-Af BUN/Creatinine Ratio Glucose Serum Osmolality Uric Acid 4.6 Calcium Total Bilirubin AST ALT Alkaline Phosphatase Total Protein Albumin Globulin Albumin/Globulin Ratio Triglycerides Cholesterol LDL Cholesterol VLDL Cholesterol HDL Cholesterol Cortisol Urine Color Yellow Urine Clarity Clear Urine pH 5.0 Ur Specific Warner 1.020 Urine Protein 30 H Urine Glucose (UA) Normal Urine Ketones 150 A* Urine Occult Blood 25 H Urine Nitrite Negative Urine Bilirubin Negative Urine Urobilinogen Normal Ur Leukocyte Esterase 25 H Urine RBC 0-5 SEEN Urine WBC 0-5 SEEN Ur Squamous Epith Cells 0-5 SEEN Urine Bacteria RARE Urine Mucus 0 SEEN Urine Osmolality 698 Ur Random Sodium 95 12/13/20 12/13/20 12/13/20 11:20 11:20 11:20 WBC RBC Hgb Hct MCV MCH MCHC RDW Std Deviation RDW Coeff of Cris Plt Count MPV Immature Gran % (Auto) Neut % (Auto) Lymph % (Auto) [place] % (Auto) Eos % (Auto) Baso % (Auto) Absolute Neuts (auto) Absolute Lymphs (auto) Nucleated RBC % Differential Comment Atypical Lymphocytes Sodium 122 L Potassium Chloride Carbon Dioxide Anion Gap BUN Creatinine Estim Creat Clear Calc Est GFR (MDRD) Af Amer Est GFR (MDRD) Non-Af BUN/Creatinine Ratio Glucose Serum Osmolality 256 L Uric Acid Calcium Total Bilirubin AST ALT Alkaline Phosphatase Total Protein Albumin Globulin Albumin/Globulin Ratio Triglycerides Cholesterol LDL Cholesterol VLDL Cholesterol HDL Cholesterol Cortisol 13.00 Urine Color Urine Clarity Urine pH Ur Specific Warner Urine Protein Urine Glucose (UA) Urine Ketones Urine Occult Blood Urine Nitrite Urine Bilirubin Urine Urobilinogen Ur Leukocyte Esterase Urine RBC Urine WBC Ur Squamous Epith Cells Urine Bacteria Urine Mucus Urine Osmolality Ur Random Sodium 12/13/20 12/13/20 12/14/20 16:54 20:29 00:15 WBC RBC Hgb Hct MCV MCH MCHC RDW Std Deviation RDW Coeff of Cris Plt Count MPV Immature Gran % (Auto) Neut % (Auto) Lymph % (Auto) [place] % (Auto) Eos % (Auto) Baso % (Auto) Absolute Neuts (auto) Absolute Lymphs (auto) Nucleated RBC % Differential Comment Atypical Lymphocytes Sodium 124 L 123 L 125 L Potassium Chloride Carbon Dioxide Anion Gap BUN Creatinine Estim Creat Clear Calc Est GFR (MDRD) Af Amer Est GFR (MDRD) Non-Af BUN/Creatinine Ratio Glucose Serum Osmolality Uric Acid Calcium Total Bilirubin AST ALT Alkaline Phosphatase Total Protein Albumin Globulin Albumin/Globulin Ratio Triglycerides Cholesterol LDL Cholesterol VLDL Cholesterol HDL Cholesterol Cortisol Urine Color Urine Clarity Urine pH Ur Specific Warner Urine Protein Urine Glucose (UA) Urine Ketones Urine Occult Blood Urine Nitrite Urine Bilirubin Urine Urobilinogen Ur Leukocyte Esterase Urine RBC Urine WBC Ur Squamous Epith Cells Urine Bacteria Urine Mucus Urine Osmolality Ur Random Sodium 12/14/20 12/14/20 12/14/20 02:02 05:58 05:58 WBC 2.3 L RBC 4.49 L Hgb 15.4 Hct 41.6 MCV 92.7 MCH 34.3 H MCHC 37.0 H RDW Std Deviation 44.7 H RDW Coeff of Cris 13.2 Plt Count 132 L MPV 8.5 Immature Gran % (Auto) 0.400 Neut % (Auto) 34.3 L Lymph % (Auto) 39.1 [place] % (Auto) 25.8 H Eos % (Auto) 0.4 Baso % (Auto) 0.0 Absolute Neuts (auto) 0.8 L Absolute Lymphs (auto) 0.91 Nucleated RBC % 0 Differential Comment SCANNED Atypical Lymphocytes 1+ Sodium 125 L 124 L Potassium 3.6 Chloride 93 L Carbon Dioxide 20.0 L Anion Gap 11 BUN 20 H Creatinine 1.24 Estim Creat Clear Calc 38.46 Est GFR (MDRD) Af Amer 72 Est GFR (MDRD) Non-Af 59 L BUN/Creatinine Ratio 16.1 Glucose 102 Serum Osmolality Uric Acid Calcium 7.8 L Total Bilirubin 0.30 AST 110 H ALT 74 H Alkaline Phosphatase 62 Total Protein 6.6 Albumin 3.2 Globulin 3.4 Albumin/Globulin Ratio 0.9 Triglycerides 96 Cholesterol 121 LDL Cholesterol 67 VLDL Cholesterol 19 HDL Cholesterol 35 L Cortisol Urine Color Urine Clarity Urine pH Ur Specific Warner Urine Protein Urine Glucose (UA) Urine Ketones Urine Occult Blood Urine Nitrite Urine Bilirubin Urine Urobilinogen Ur Leukocyte Esterase Urine RBC Urine WBC Ur Squamous Epith Cells Urine Bacteria Urine Mucus Urine Osmolality Ur Random Sodium 12/14/20 09:46 WBC RBC Hgb Hct MCV MCH MCHC RDW Std Deviation RDW Coeff of Cris Plt Count MPV Immature Gran % (Auto) Neut % (Auto) Lymph % (Auto) [place] % (Auto) Eos % (Auto) Baso % (Auto) Absolute Neuts (auto) Absolute Lymphs (auto) Nucleated RBC % Differential Comment Atypical Lymphocytes Sodium 126 L Potassium Chloride Carbon Dioxide Anion Gap BUN Creatinine Estim Creat Clear Calc Est GFR (MDRD) Af Amer Est GFR (MDRD) Non-Af BUN/Creatinine Ratio Glucose Serum Osmolality Uric Acid Calcium Total Bilirubin AST ALT Alkaline Phosphatase Total Protein Albumin Globulin Albumin/Globulin Ratio Triglycerides Cholesterol LDL Cholesterol VLDL Cholesterol HDL Cholesterol Cortisol Urine Color Urine Clarity Urine pH Ur Specific Warner Urine Protein Urine Glucose (UA) Urine Ketones Urine Occult Blood Urine Nitrite Urine Bilirubin Urine Urobilinogen Ur Leukocyte Esterase Urine RBC Urine WBC Ur Squamous Epith Cells Urine Bacteria Urine Mucus Urine Osmolality Ur Random Sodium Radiology Impression Liver Ultrasound 12/13/20 10:45 IMPRESSION: Limited but grossly negative study Electronically Signed: Alexandria Ya, at 16:03 EDT Tel , Service support , Chest CT 12/13/20 14:01 IMPRESSION: 1. Atherosclerotic changes of the aorta and coronary arteries. 2. Nonspecific mediastinal lymphadenopathy. 3. No acute pulmonary disease. Electronically Signed: Gilson Shah DO at 16:36 EDT Tel [phone], Service support , Brain CT 12/13/20 17:40 IMPRESSION: 1. No evidence of acute intracranial or calvarial abnormality. Electronically Signed: Gilson Shah DO at 21:00 EDT Tel [phone], Service support , Head/Neck CTA 12/13/20 17:42 IMPRESSION: 1. Normal cervical lordosis and intracranial vasculature. 2. Bilateral carotid plaque without significant stenosis. 3. Normal vertebral arteries. Electronically Signed: Gilson Shah DO at 21:17 EDT Tel [phone], Service support ,
--- NOTE | 2020-12-14 10:41 | CASEMGMT ---
Social Work Note SYDNIE in to speak with pt's Sayda. Sayda states to try either [facility] or [facility] next. SYDNIE asked Sayda if she has been informed about COVID visitation policy at [facility]. Lucia states RUSLAN had mentioned pt would need to be in 14 days of isolation. Sayda asked about Private Duty Aides and if insurance would cover aides. This worker informed Sayda that private duty aides are all private pay and prices vary. Sayda states understanding. SYDNIE placed a call to both [facility] and [facility] and provided referral. SYDNIE faxed referral to both places. Plan: SNF pending acceptance Ivon Felix YACHT BUILDER, FLAKE OR SHRED ROLL OPERATOR
[2020-12-14 12:30] LABS: International Normalized Ratio 1.1; Prothrombin Time (Protime)PT. 13.9 SECONDS (11.7-14.9)
--- NOTE | 2020-12-14 12:33 | CASEMGMT ---
Pt screened with [facility] Palliative Care Screening Tool due to strata 3, pt did not meet criteria.
--- NOTE | 2020-12-14 13:40 | NURSING ---
1320-pt off unit via bed for scheduled procedure. present to sign consent
--- NOTE | 2020-12-14 13:45 | NURSING ---
PT ARRIVES FROM FLOOR VIA [employer] WITH . PROCEDURE REVIEWED WITH , QUESTIONS ANSWERED, AND CONSENT SIGNED. PT VERY [place], STS CAN READ LIPS. PT NOT ANSWERING QUESTIONS. IV PATENT. LUNGS CLEAR, B/L, ANTERIORLY. PT ASSISTED WITH URINAL.
[2020-12-14] MEDS: fentaNYL 100 MCG/2 ML Ampul IV (14:13)
--- NOTE | 2020-12-14 14:36 | PN.HOSP_ITS ---
Subjective Subjective Patient remains with confusion and debility. Per his he seemed a little bit better last evening and was able to eat some ice cream and a pudding cup. She is admitting more that she feels like he was having dementia issues and progressing at home with time but again reiterates that this is a drastic difference. She also admits that she feels that her his hearing issues are complicating things. Echo is being performed. Objective Data Objective Data Vital Signs: Vital Signs Temp Pulse Resp BP Pulse Ox 98.2 F 89 16 117/51 L 97 12/14/20 13:00 12/14/20 13:56 12/14/20 13:56 12/14/20 13:56 12/14/20 13:56 Oxygen Delivery Method Room Air Weight: 59.6 kg Body Mass Index (BMI) 22.5 Intake & Output: Intake and Output for Last 24 Hours 12/12/20 12/13/20 12/14/20 23:59 23:59 23:59 Intake Total 1750 / 1750 1561.25 / 1581.25 302 / 302 Output Total 1100 / 1100 200 / 200 100 / 100 Balance 650 / 650 1361.25 / 1381.25 202 / 202 Lab / Micro Data Result Diagrams: 12/14/20 05:58 12/14/20 09:46 Labs: Laboratory Results - last 24 hr 12/13/20 12/13/20 12/13/20 06:45 16:54 20:29 WBC RBC Hgb Hct MCV MCH MCHC RDW Std Deviation RDW Coeff of Cris Plt Count MPV Immature Gran % (Auto) Neut % (Auto) Lymph % (Auto) [place] % (Auto) Eos % (Auto) Baso % (Auto) Absolute Neuts (auto) Absolute Lymphs (auto) Nucleated RBC % Differential Comment Atypical Lymphocytes PT INR APTT Sodium 124 L 123 L Potassium Chloride Carbon Dioxide Anion Gap BUN Creatinine Estim Creat Clear Calc Est GFR (MDRD) Af Amer Est GFR (MDRD) Non-Af BUN/Creatinine Ratio Glucose Uric Acid 4.6 Calcium Total Bilirubin AST ALT Alkaline Phosphatase Total Protein Albumin Globulin Albumin/Globulin Ratio Triglycerides Cholesterol LDL Cholesterol VLDL Cholesterol HDL Cholesterol 12/14/20 12/14/20 12/14/20 00:15 02:02 05:58 WBC 2.3 L RBC 4.49 L Hgb 15.4 Hct 41.6 MCV 92.7 MCH 34.3 H MCHC 37.0 H RDW Std Deviation 44.7 H RDW Coeff of Cris 13.2 Plt Count 132 L MPV 8.5 Immature Gran % (Auto) 0.400 Neut % (Auto) 34.3 L Lymph % (Auto) 39.1 [place] % (Auto) 25.8 H Eos % (Auto) 0.4 Baso % (Auto) 0.0 Absolute Neuts (auto) 0.8 L Absolute Lymphs (auto) 0.91 Nucleated RBC % 0 Differential Comment SCANNED Atypical Lymphocytes 1+ PT INR APTT Sodium 125 L 125 L Potassium Chloride Carbon Dioxide Anion Gap BUN Creatinine Estim Creat Clear Calc Est GFR (MDRD) Af Amer Est GFR (MDRD) Non-Af BUN/Creatinine Ratio Glucose Uric Acid Calcium Total Bilirubin AST ALT Alkaline Phosphatase Total Protein Albumin Globulin Albumin/Globulin Ratio Triglycerides Cholesterol LDL Cholesterol VLDL Cholesterol HDL Cholesterol 12/14/20 12/14/20 12/14/20 05:58 09:46 12:12 WBC RBC Hgb Hct MCV MCH MCHC RDW Std Deviation RDW Coeff of Cris Plt Count MPV Immature Gran % (Auto) Neut % (Auto) Lymph % (Auto) [place] % (Auto) Eos % (Auto) Baso % (Auto) Absolute Neuts (auto) Absolute Lymphs (auto) Nucleated RBC % Differential Comment Atypical Lymphocytes PT 13.9 INR 1.1 APTT 38.0 H Sodium 124 L 126 L Potassium 3.6 Chloride 93 L Carbon Dioxide 20.0 L Anion Gap 11 BUN 20 H Creatinine 1.24 Estim Creat Clear Calc 38.46 Est GFR (MDRD) Af Amer 72 Est GFR (MDRD) Non-Af 59 L BUN/Creatinine Ratio 16.1 Glucose 102 Uric Acid Calcium 7.8 L Total Bilirubin 0.30 AST 110 H ALT 74 H Alkaline Phosphatase 62 Total Protein 6.6 Albumin 3.2 Globulin 3.4 Albumin/Globulin Ratio 0.9 Triglycerides 96 Cholesterol 121 LDL Cholesterol 67 VLDL Cholesterol 19 HDL Cholesterol 35 L Micro: Microbiology 12/11/20 19:55 Mucosa - Nose SARS-CoV-2 Antigen (Rapid) - Final Radiography Diagnostic Testing: Radiology Impression Liver Ultrasound 12/13/20 10:45 IMPRESSION: Limited but grossly negative study Electronically Signed: Alexandria Ya, at 16:03 EDT Tel , Service support , Chest CT 12/13/20 14:01 IMPRESSION: 1. Atherosclerotic changes of the aorta and coronary arteries. 2. Nonspecific mediastinal lymphadenopathy. 3. No acute pulmonary disease. Electronically Signed: Gilson Shah DO at 16:36 EDT Tel [phone], Service support , Echocardiogram 12/13/20 17:39 Interpretation Summary The estimated ejection fraction is EF calculated 44 %. Mild to moderate LV systolic function in comparison to last Echo 04/13/2019(,(EF 55%) Grade #I diastolic Dysfuncthion Mild AI Trivial MR Trivial TR Ordering Physician: Whitney Jesus Referring Physician: ALBINA VELIZ Performed By: Rula Ivory, ALDO, RVT Brain CT 12/13/20 17:40 IMPRESSION: 1. No evidence of acute intracranial or calvarial abnormality. Electronically Signed: Gilson Shah DO at 21:00 EDT Tel [phone], Service support , Head/Neck CTA 12/13/20 17:42 IMPRESSION: 1. Normal cervical lordosis and intracranial vasculature. 2. Bilateral carotid plaque without significant stenosis. 3. Normal vertebral arteries. Electronically Signed: Gilson Shah DO at 21:17 EDT Tel [phone], Service support , Physical Exam Const alert, no apparent distress and healthy appearing Constitutional Narrative: Lying in bed sleeping this morning, at bedside, currently calm Orientation / Consciousness: awake HEENT normocephalic and head/scalp atraumatic Head and Scalp: normocephalic Resp normal respiratory effort, no retractions, no use of accessory muscles and clear to auscultation bilaterally Cardio regular rate, regular rhythm, S1 normal heart sound, S2 normal heart sound, no murmurs, no rub, no gallops, no clicks and no JVD Peripheral Pulses: pulses 2+ throughout GI normal to inspection, nondistended, normoactive bowel sounds, soft to palpation, non-tender and non-distended Extremity normal to inspection, full ROM and no clubbing, cyanosis or edema Peripheral Pulses: Yes pulses 2+ throughout Skin Lesions: no lesions Rashes: no rashes Trauma: no lacerations or abrasions Neuro CN's II-XII intact bilaterally and deep tendon reflexes 2+ bilaterally Neuro Narrative: Patient is sleeping soundly Psych mental status grossly normal Psych Narrative: Patient is sleeping soundly Activity / Motor Behavior: restless Memory / Cognition: cognition impaired Assessment & Plan Assessment/Plan (1) Encephalopathy: (2) SIADH (syndrome of inappropriate ADH production): (3) Acute confusion: (4) Essential hypertension: (5) Hyponatremia: (6) Transaminitis: (7) Chronic hyponatremia: PLAN: Assessment: Encephalopathy Confusion Debility Mild temperature elevation Chronic leukopenia Transaminitis Acute on Chronic hyponatremia secondary to SIADH HFrEF-compensated Diastolic dysfunction Asthma Chronic right shoulder pain Suspected dementia versus mild cognitive impairment [place] with cochlear implant and hearing aid Poor PO intake Plan: -ammonia WNL -Continue serial Na q 4 -Urine and Sodium Osm/Urine Na looks like SIADH--> nephro agrees -Likely related to neurological status -Continue fluid restriction at 1500 cc daily -Continue salt tablets and Lasix -Conivaptan hands on hold secondary to mildly elevated transaminases -Blood cultures are pending -ID input appreciated -CT had negative/CTA head and neck stable mild nonobstructive carotid artery disease -EEG is negative -Continue acyclovir -LP is pending -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 intake remains poor may need to consider supplemental enteral nutrition with [place] - is amenable to halfway facility placement at discharge for rehab purposes Charges/Coding Visit Charges Inpatient E&M: 98512 Subs Hosp L3
--- NOTE | 2020-12-14 14:37 | CASEMGMT ---
Addendum entered by Ivon Felix 12/14/20 16:20: Sayda is present in pt's room. SW updated Sayda that [facility] is able to accept pt. Sayda agreeable to [facility]. SYDNIE placed a call to Ivon at [facility] and left message to disregard referral. Plan: [facility] once medically cleared Original Note: Social Work Note SW received call from Gala at [facility] stating they can accept pt when pt is medically cleared. SW attempted to update pt's , both pt and are off floor at this time. Ivon Felix CRIMINAL JUSTICE DEPARTMENT CHAIR, CRAB MEAT PROCESSOR
--- NOTE | 2020-12-14 14:39 | CYSPIN_PTH ---
PATIENT: EVERETT ORTIZ LOC: MS3 U#:[id number] AGE/SX: 80/M ROOM: SD323 RE12/12/[address]: Dr. Daniel Aguilar DO : 1940 BED: 1 DIS: 12/18/2020 SPEC #: [id number] RECD: 12/15/20 08:57 STATUS: DYLAN REQ #: [id number] DARLEEN: 12/14/20 14:[address]: Scarlet Aguillon DEPT: CYTOLOGY RECD BY: Lexi Conrad ENTERED: 12/15/20 08:57 SP TYPE: CYSPIN FL OTHR DR: DO Dr. Prasanna Mix MD Dr. Robert Leininger, MD Dr. William Lago, MD Tissues: Cerebrospinal Fluid Procedures: Pap Stain (control) Special Stain Group II Cytospin Fluid HEADER OPERATION: Lumbar puncture PRE-OP DIAGNOSIS: TIA/CVA TISSUE SUBMITTED: Cerebrospinal fluid for cytology DIAGNOSIS CYTOLOGY Cerebrospinal fluid for cytology (cytospin): Negative for malignant cells. Blood. AM:bon 12/15/2020 CYTOLOGY STUDY Slides are reviewed. CYTOLOGY GROSS Received is 1 ml of clear colorless fluid labeled with the patient's name and and designated per the requisition as CSF. Submitted for cytology preparation. / bon 12/15/2020 TC:5 CPT: 66896
[2020-12-14 15:12] LABS: Cytology, Body Fluid / CSF SEE PATHOLOGY REPORT
--- NOTE | 2020-12-14 15:23 | PCM.PN.REN ---
Subjective Subjective no new events. remains obtunded. ID note reviewed. possible [employer] infection, LP today. Objective Data Objective Data Vital Signs: Vital Signs Temp Pulse Resp BP Pulse Ox 98.2 F 76 97 H 104/47 L 99 12/14/20 13:00 12/14/20 15:10 12/14/20 15:10 12/14/20 15:10 12/14/20 15:10 Oxygen Flow Rate (L/min) [6] 2 Oxygen Flow Rate (L/min) [5] 2 Oxygen Flow Rate (L/min) [4] 2 Oxygen Flow Rate (L/min) [3] 2 Oxygen Flow Rate (L/min) [2] 2 Oxygen Flow Rate (L/min) [1 ( 2 Initial Baseline)] Oxygen Delivery Method [6] Nasal Cannula Oxygen Delivery Method [5] Nasal Cannula Oxygen Delivery Method [4] Nasal Cannula Oxygen Delivery Method [3] Nasal Cannula Oxygen Delivery Method [2] Nasal Cannula Oxygen Delivery Method [1 ( Nasal Cannula Initial Baseline)] Oxygen Delivery Method Room Air Weight: 59.6 kg Body Mass Index (BMI) 22.5 Intake & Output: Intake and Output for Last 24 Hours 12/12/20 12/13/20 12/14/20 23:59 23:59 23:59 Intake Total 1750 / 1750 1561.25 / 1581.25 302 / 302 Output Total 1100 / 1100 200 / 200 100 / 100 Balance 650 / 650 1361.25 / 1381.25 202 / 202 Lab / Micro Data Result Diagrams: 12/14/20 05:58 12/14/20 09:46 Labs: Laboratory Results - last 24 hr 12/13/20 12/13/20 12/14/20 16:54 20:29 00:15 WBC RBC Hgb Hct MCV MCH MCHC RDW Std Deviation RDW Coeff of Cris Plt Count MPV Immature Gran % (Auto) Neut % (Auto) Lymph % (Auto) [place] % (Auto) Eos % (Auto) Baso % (Auto) Absolute Neuts (auto) Absolute Lymphs (auto) Nucleated RBC % Differential Comment Atypical Lymphocytes PT INR APTT Sodium 124 L 123 L 125 L Potassium Chloride Carbon Dioxide Anion Gap BUN Creatinine Estim Creat Clear Calc Est GFR (MDRD) Af Amer Est GFR (MDRD) Non-Af BUN/Creatinine Ratio Glucose Calcium Total Bilirubin AST ALT Alkaline Phosphatase Total Protein Albumin Globulin Albumin/Globulin Ratio Triglycerides Cholesterol LDL Cholesterol VLDL Cholesterol HDL Cholesterol 12/14/20 12/14/20 12/14/20 02:02 05:58 05:58 WBC 2.3 L RBC 4.49 L Hgb 15.4 Hct 41.6 MCV 92.7 MCH 34.3 H MCHC 37.0 H RDW Std Deviation 44.7 H RDW Coeff of Cris 13.2 Plt Count 132 L MPV 8.5 Immature Gran % (Auto) 0.400 Neut % (Auto) 34.3 L Lymph % (Auto) 39.1 [place] % (Auto) 25.8 H Eos % (Auto) 0.4 Baso % (Auto) 0.0 Absolute Neuts (auto) 0.8 L Absolute Lymphs (auto) 0.91 Nucleated RBC % 0 Differential Comment SCANNED Atypical Lymphocytes 1+ PT INR APTT Sodium 125 L 124 L Potassium 3.6 Chloride 93 L Carbon Dioxide 20.0 L Anion Gap 11 BUN 20 H Creatinine 1.24 Estim Creat Clear Calc 38.46 Est GFR (MDRD) Af Amer 72 Est GFR (MDRD) Non-Af 59 L BUN/Creatinine Ratio 16.1 Glucose 102 Calcium 7.8 L Total Bilirubin 0.30 AST 110 H ALT 74 H Alkaline Phosphatase 62 Total Protein 6.6 Albumin 3.2 Globulin 3.4 Albumin/Globulin Ratio 0.9 Triglycerides 96 Cholesterol 121 LDL Cholesterol 67 VLDL Cholesterol 19 HDL Cholesterol 35 L 12/14/20 12/14/20 09:46 12:12 WBC RBC Hgb Hct MCV MCH MCHC RDW Std Deviation RDW Coeff of Cris Plt Count MPV Immature Gran % (Auto) Neut % (Auto) Lymph % (Auto) [place] % (Auto) Eos % (Auto) Baso % (Auto) Absolute Neuts (auto) Absolute Lymphs (auto) Nucleated RBC % Differential Comment Atypical Lymphocytes PT 13.9 INR 1.1 APTT 38.0 H Sodium 126 L Potassium Chloride Carbon Dioxide Anion Gap BUN Creatinine Estim Creat Clear Calc Est GFR (MDRD) Af Amer Est GFR (MDRD) Non-Af BUN/Creatinine Ratio Glucose Calcium Total Bilirubin AST ALT Alkaline Phosphatase Total Protein Albumin Globulin Albumin/Globulin Ratio Triglycerides Cholesterol LDL Cholesterol VLDL Cholesterol HDL Cholesterol Micro: Microbiology 12/11/20 19:55 Mucosa - Nose SARS-CoV-2 Antigen (Rapid) - Final Radiography Diagnostic Testing: Radiology Impression Liver Ultrasound 12/13/20 10:45 IMPRESSION: Limited but grossly negative study Electronically Signed: Alexandria Ya, at 16:03 EDT Tel , Service support , Chest CT 12/13/20 14:01 IMPRESSION: 1. Atherosclerotic changes of the aorta and coronary arteries. 2. Nonspecific mediastinal lymphadenopathy. 3. No acute pulmonary disease. Electronically Signed: Gilson Shah DO at 16:36 EDT Tel [phone], Service support , Echocardiogram 12/13/20 17:39 Interpretation Summary The estimated ejection fraction is EF calculated 44 %. Mild to moderate LV systolic function in comparison to last Echo 04/13/2019(,(EF 55%) Grade #I diastolic Dysfuncthion Mild AI Trivial MR Trivial TR Ordering Physician: Whitney Jesus Referring Physician: ALBINA VELIZ Performed By: Rula Ivory, RDCS, RVT Brain CT 12/13/20 17:40 IMPRESSION: 1. No evidence of acute intracranial or calvarial abnormality. Electronically Signed: Gilson Shah DO at 21:00 EDT Tel [phone], Service support , Head/Neck CTA 12/13/20 17:42 IMPRESSION: 1. Normal cervical lordosis and intracranial vasculature. 2. Bilateral carotid plaque without significant stenosis. 3. Normal vertebral arteries. Electronically Signed: Gilson Shah DO at 21:17 EDT Tel [phone], Service support , Lumbar Puncture Fluoroscopy 12/14/20 07:00 IMPRESSION: Uneventful lumbar puncture. Electronically Signed: Alexandria aY, at 15:14 EDT Tel , Service support , Physical Exam Narrative sleepy no obvious distress no pallor no icterus no JVD s1s2 no murmurs lungs clear abdomen soft no organomegaly no edema no cyanosis Assessment & Plan Assessment/Plan (1) Hyponatremia: PLAN: Reviewed records from primary care physician's office. His sodium was normal as of May 2020. Presented with a sodium of 130. down to 122. Urine osmolality almost 700. Urine sodium 95. Labs are consistent with SIADH. Volume status appears okay. TSH and cortisol are normal. Chest x-ray is clear. All his blood counts were normal in May. Currently has leukopenia and worsening thrombocytopenia. Etiology of altered mental status is likely some cerebral pathology. Most likely SIADH related to intracranial events. for treatment he has elevated LFTs. hence will hold vaptans. LFTs are slightly higher today. liver US is ok. ? related to sepsis sodium is better today. continue same meds for today ID note reviewed (2) SIADH (syndrome of inappropriate ADH production):
[2020-12-14] MEDS: Menthol/Lanolin/Calamine/Znox 113 GM Tube 1 APPLIC TOPICAL ×2 (16:02→21:07)
[2020-12-14 16:18] LABS: RBC Count, Spinal Fluid 8 /mm-3 (None seen)
[2020-12-14 16:19] LABS: Auto B Fluid Analyzer BKGD Ct COUNTS W/IN LIMITS (W/IN LIMITS)
[2020-12-14 16:20] LABS: Appearance CSF (character) CLEAR (Clear); CSF Color COLORLESS (Colorless); Tested Tube # 4
[2020-12-14 16:24] LABS: White Count, CSF 0 /mm-3 (0 - 5)
[2020-12-14 16:26] LABS: Body Fluid QC Type(s) BF1Q
[2020-12-14 16:33] LABS: Glucose Spinal Fluid 66 mg/dL (40-75)
[2020-12-14 18:04] LABS: Sodium Level 127 mmol/L (136-145)
[2020-12-14] MEDS: Furosemide 20 MG Tablet PO (18:19)
[2020-12-14] MEDS: Aspirin E.C. 81 MG Tablet PO (18:19)
[2020-12-14] MEDS: Budesonide Respules 0.5 MG/2 ML AMPUL.NEB. INHALATION (18:50)
[2020-12-14] MEDS: Montelukast 10 MG Tablet PO (19:35)
[2020-12-15 03:12] VITALS: BP 98/52; PULSE 82; RESP 18; TEMP 37; O2SAT 95
--- NOTE | 2020-12-15 04:06 | NURSING ---
Pt was brought out to nursing station as he kept jumping out of bed.
[2020-12-15] MEDS: Sodium Chloride 1 GM Tablet 2 GM PO ×3 (05:40→21:04)
[2020-12-15 07:22] VITALS: PULSE 88; RESP 16; O2SAT 96
[2020-12-15] MEDS: Budesonide Respules 0.5 MG/2 ML AMPUL.NEB. INHALATION ×2 (07:22→19:35)
[2020-12-15 08:25] VITALS: BP 109/54; PULSE 83; RESP 16; TEMP 36.2; O2SAT 95
[2020-12-15] MEDS: Menthol/Lanolin/Calamine/Znox 113 GM Tube 1 APPLIC TOPICAL ×2 (09:11→21:05)
[2020-12-15] MEDS: Aspirin E.C. 81 MG Tablet PO (09:11)
[2020-12-15] MEDS: Furosemide 20 MG Tablet PO (09:11)
[2020-12-15 09:54] LABS: Absolute Lymphocyte Count 0.76 X10^3/uL (0.83-4.51); Absolute Neutrophil Count 0.8 X10^3/uL (2.0-7.7); Basophil# 0.01 X10^3/uL; Basophil% 0.5 % (0-1); Differential Indicated SCAN CRITERIA MET; Eosinophil# 0.03 X10^3/uL; Eosinophils% 1.4 % (0-5); Hematocrit 40.2 % (40-54); Hemoglobin 14.8 g/dL (13.0-16.5); Lymphocyte # 0.76 X10^3/ul (0.83-4.51); Lymphocyte % 35.8 % (19-41); Mean Corp Hgb Conc 36.8 g/dL (32-36); Mean Corpuscular Hgb 34.2 pg (27.0-32.0); Mean Corpuscular Volume 92.8 fL (80-94); Mean Platelet Vol. 8.9 fl (6.2-12.0); Monocyte# 0.56 X10^3/uL; Monocyte% 26.4 % (0-10); NRBC Flagged by Analyzer 0 % (0-5); Neutrophil # 0.75 X10^3/uL (2.7-7.7); Neutrophil % 35.4 % (47-70); POSITIVE DIFFERENTIAL YES; POSITIVE MORPHOLOGY YES; Platelet Count 124 K/mm3 (150-450); RBC Distribution Width CV 13.5 % (11.6-14.6); RBC Distribution Width SD 46.2 fl (35.1-43.9); Red Blood Count 4.33 M/mm3 (4.6-6.2); White Blood Count 2.1 K/mm3 (4.4-11.0)
[2020-12-15 10:12] LABS: Pathologist Review Reviewed
[2020-12-15 10:15] LABS: Anion Gap 7 (5-15); BUN 19 mg/dL (7-18); BUN/Creat Ratio 13.6 RATIO (10-20); Calcium,Total 7.5 mg/dL (8.5-10.1); Chloride 97 mmol/L (98-107); EST Glomerular Filtration Rate 52 mL/min (>60); Est Glom Filt Rate - Afr Amer 62 mL/min (>60); Estimated Creatinine Clearance 34.06 ml/min; Glucose 99 mg/dL (74-106); Potassium 3.7 mmol/L (3.5-5.1); Sodium Level 130 mmol/L (136-145)
--- NOTE | 2020-12-15 11:02 | CASEMGMT ---
Social Work Note Medically pt is at [facility] through the weekend. SYDNIE in to speak with pt and pt's Sayda. SYDNIE provided Sayda will community resources including Direction Home and Private Duty List. Sayda states pt is much better today and is awake and sitting up in chair. Sayda states she would like [facility] to reevaluate pt on Friday to determine if they would be able to accept pt if pt is less confused. SYDNIE informed Sayda that this worker can update [facility] on Friday on how pt does over the weekend. SYDNIE informed Sayda that this worker will keep bed on hold at [facility] as they are on the only SNF at this time willing to accept pt. Sayda states understanding, agreeable to plan. Plan: Pt is here through the weekend. Sayda would like pt to be reevaluated Friday by [facility] to see if they would accept pt after the weekend. Bed is on hold for pt for [facility] at [place] in the event [facility] is not able to accept pt. Ivon Felix MAT SEWER, ADDICTION MEDICINE PHYSICIAN
--- NOTE | 2020-12-15 12:35 | PCM.PN.HOSP ---
Subjective Subjective Appears that the patient had a better night. His reports that he was fairly sleepy yesterday. He did get Seroquel the night before and had sedation for his LP. All viral lab data from CSF is pending. is concerned about his urinary urgency which has been a chronic issue and is questioning whether or not we can start something for his prostate. Upon further discussion it does not sound like a prostate issue it sounds more like an overactive bladder issue. I recommended follow-up as an outpatient with urology and that we should probably not start any new medications at this time until his mental status resolved. She was agreeable with this. Objective Data Objective Data Vital Signs: Vital Signs Temp Pulse Resp BP Pulse Ox 97.1 F L 83 16 109/54 L 95 12/15/20 08:25 12/15/20 08:25 12/15/20 08:25 12/15/20 08:25 12/15/20 08:25 Oxygen Flow Rate (L/min) [6] 2 Oxygen Flow Rate (L/min) [5] 2 Oxygen Flow Rate (L/min) [4] 2 Oxygen Flow Rate (L/min) [3] 2 Oxygen Flow Rate (L/min) [2] 2 Oxygen Flow Rate (L/min) [1 ( 2 Initial Baseline)] Oxygen Delivery Method [6] Nasal Cannula Oxygen Delivery Method [5] Nasal Cannula Oxygen Delivery Method [4] Nasal Cannula Oxygen Delivery Method [3] Nasal Cannula Oxygen Delivery Method [2] Nasal Cannula Oxygen Delivery Method [1 ( Nasal Cannula Initial Baseline)] Oxygen Delivery Method Room Air Weight: 59.6 kg Body Mass Index (BMI) 22.5 Intake & Output: Intake and Output for Last 24 Hours 12/13/20 12/14/20 12/15/20 23:59 23:59 23:59 Intake Total 1561.25 / 1581.25 1037.75 / 1357.75 896 / 896 Output Total 200 / 200 100 / 500 400 / 400 Balance 1361.25 / 1381.25 937.75 / 857.75 496 / 496 Lab / Micro Data Result Diagrams: 12/15/20 09:45 12/15/20 09:45 Labs: Laboratory Results - last 24 hr 12/14/20 12/14/20 12/14/20 14:39 14:39 17:29 WBC RBC Hgb Hct MCV MCH MCHC RDW Std Deviation RDW Coeff of Cris Plt Count MPV Immature Gran % (Auto) Neut % (Auto) Lymph % (Auto) [place] % (Auto) Eos % (Auto) Baso % (Auto) Absolute Neuts (auto) Absolute Lymphs (auto) Nucleated RBC % Differential Comment Sodium 127 L Potassium Chloride Carbon Dioxide Anion Gap BUN Creatinine Estim Creat Clear Calc Est GFR (MDRD) Af Amer Est GFR (MDRD) Non-Af BUN/Creatinine Ratio Glucose Calcium Fld Polynuclear WBCs # 0.000 Fld Polynuclear WBCs % 0.0 Fluid Mononuclear WBCs 0.000 Fld Mononuclear WBCs % 0.0 CSF Appearance CLEAR CSF Color COLORLESS CSF WBC 0 CSF RBC 8 H CSF Cell Count Tube # 4 CSF Total Cell Counted Not Reportable CSF Comment Reviewed CSF Glucose 66 CSF Total Protein 52.0 H 12/15/20 12/15/20 09:45 09:45 WBC 2.1 L RBC 4.33 L Hgb 14.8 Hct 40.2 MCV 92.8 MCH 34.2 H MCHC 36.8 H RDW Std Deviation 46.2 H RDW Coeff of Cris 13.5 Plt Count 124 L MPV 8.9 Immature Gran % (Auto) 0.500 Neut % (Auto) 35.4 L Lymph % (Auto) 35.8 [place] % (Auto) 26.4 H Eos % (Auto) 1.4 Baso % (Auto) 0.5 Absolute Neuts (auto) 0.8 L Absolute Lymphs (auto) 0.76 L Nucleated RBC % 0 Differential Comment COMMENT Sodium 130 L Potassium 3.7 Chloride 97 L Carbon Dioxide 26.0 Anion Gap 7 BUN 19 H Creatinine 1.40 H Estim Creat Clear Calc 34.06 Est GFR (MDRD) Af Amer 62 Est GFR (MDRD) Non-Af 52 L BUN/Creatinine Ratio 13.6 Glucose 99 Calcium 7.5 L Fld Polynuclear WBCs # Fld Polynuclear WBCs % Fluid Mononuclear WBCs Fld Mononuclear WBCs % CSF Appearance CSF Color CSF WBC CSF RBC CSF Cell Count Tube # CSF Total Cell Counted CSF Comment CSF Glucose CSF Total Protein Micro: Microbiology 12/14/20 14:39 Csf, Spinal Fluid Gram Stain - Final 12/14/20 14:39 Csf, Spinal Fluid CSF Culture - Preliminary Culture exhibits no growth. 12/11/20 19:55 Mucosa - Nose SARS-CoV-2 Antigen (Rapid) - Final Radiography Diagnostic Testing: Radiology Impression Echocardiogram 12/13/20 17:39 Interpretation Summary The estimated ejection fraction is EF calculated 44 %. Mild to moderate LV systolic function in comparison to last Echo 04/13/2019(,(EF 55%) Grade #I diastolic Dysfuncthion Mild AI Trivial MR Trivial TR Ordering Physician: Whitney Jesus Referring Physician: ALBINA VELIZ Performed By: Rula Ivory, RDCS, RVT Lumbar Puncture Fluoroscopy 12/14/20 07:00 IMPRESSION: Uneventful lumbar puncture. Electronically Signed: Alexandria Ya, at 15:14 EDT Tel , Service support , Physical Exam Const alert, no apparent distress and healthy appearing Constitutional Narrative: Lying in bed sleeping this morning, at bedside, currently calm, awakens during my exam and becomes mildly started but was easily calmed by his Orientation / Consciousness: awake HEENT normocephalic and head/scalp atraumatic Head and Scalp: normocephalic Resp normal respiratory effort, no retractions, no use of accessory muscles and clear to auscultation bilaterally Cardio regular rate, regular rhythm, S1 normal heart sound, S2 normal heart sound, no murmurs, no rub, no gallops, no clicks and no JVD Peripheral Pulses: pulses 2+ throughout GI normal to inspection, nondistended, normoactive bowel sounds, soft to palpation, non-tender and non-distended Extremity Peripheral Pulses: Yes pulses 2+ throughout Skin no wounds Lesions: no lesions Rashes: no rashes Trauma: no lacerations or abrasions Neuro CN's II-XII intact bilaterally and deep tendon reflexes 2+ bilaterally Neuro Narrative: Patient is sleeping soundly initially but awakens and moves all extremities symmetrically and purposeful, unable to follow commands but hearing aid was not in place and patient was unable to read lips secondary to my mask Sensorium / Orientation: awake and alert Motor Exam: strength 5/5 throughout Psych mental status grossly normal Psych Narrative: Patient is sleeping soundly, was calm upon awakening after initial startle Activity / Motor Behavior: restless Memory / Cognition: cognition impaired Assessment & Plan Assessment/Plan (1) Encephalopathy: (2) SIADH (syndrome of inappropriate ADH production): (3) Acute confusion: (4) Essential hypertension: (5) Hyponatremia: (6) Transaminitis: (7) Chronic hyponatremia: PLAN: Assessment: Encephalopathy Confusion Debility Mild temperature elevation Chronic leukopenia Thrombocytopenia Transaminitis BRANDON Acute on Chronic hyponatremia secondary to SIADH HFrEF-compensated Diastolic dysfunction-stage I Asthma Chronic right shoulder pain Suspected dementia versus mild cognitive impairment [place] with cochlear implant and hearing aid Poor PO intake Plan: -Urine and Sodium Osm/Urine Na looks like SIADH -Likely related to neurological status -Continue fluid restriction at 1500 cc daily -Continue salt tablets and Lasix -Need to discontinue Lasix given BRANDON--> discussed with nephrology -Sodium is now 130 -Discontinue serial sodiums and check daily -Blood cultures remain pending -No documented temperature elevations in the last 24 hours -ID input appreciated -CT had negative/CTA head and neck stable mild nonobstructive carotid artery disease -EEG is negative -Continue acyclovir -LP was performed yesterday awaiting viral studies -Protein is mildly elevated -Glucose within normal limits -Cell counts have not been entered -Gram stain was negative and preliminary culture shows no growth -Neurology to reevaluate today after imaging and studies have been performed -Echo shows EF of 44% which is depressed when compared to previous echocardiogram where it was 55% -Question whether or not this is virally mediated -Repeat transaminases in the morning -Continue home inhalers -CT chest is negative -Continue PT OT -If p.o. intake remains poor may need to consider supplemental enteral nutrition with [place] - is amenable to long-term facility placement at discharge for rehab purposes -Patient does have an accepting facility when he is medically stable for discharge
--- NOTE | 2020-12-15 13:14 | PCM.PN.ID ---
Physical Exam Narrative Remains somnolent, no fever, LP done Const Orientation / Consciousness: lethargic Resp normal air movement and clear to auscultation bilaterally Cardio regular rate and regular rhythm GI normal to inspection, nondistended, normoactive bowel sounds Skin no rashes or lesions noted ID ID: Route of nutrition/ use of supplements: [] Nutritional Intake: [] IV Site: [] Maharaj Catheter: [] Assessment & Plan Assessment/Plan (1) Transaminitis: (2) Hyponatremia: (3) Encephalopathy: PLAN: Unclear cause. Neurology following, LP done, csf wbc 0. Will stop acyclovir. Remains neutropenic. If he has temp 100.5 or higher, would check bcx x2, cxr, UA/Ucx, and start vanc/cefepime. Penile ulcer, will check syphilis. Will follow, d/w nursing (4) Neutropenia:
[2020-12-15 13:45] VITALS: BP 129/71; PULSE 71; RESP 16; TEMP 36.4; O2SAT 98
[2020-12-15 14:43] LABS: Syphilis Antibodies Non-reactive
--- NOTE | 2020-12-15 16:28 | EX.NTREPO ---
Medical Nutrition Therapy - History Current diet/nutrition support order:: regular. 1500mL fluid restriction. ensure enlive 120mL 4x/day - Anthropometric Measurements Height:: 5 ft 4 in Weight:: 59.6 kg Body Mass Index (BMI):: 22.5 - Relevant Labs Relevant Labs:: WBC 2.1 K/mm3 (4.4-11.0) L 12/15/20 09:45 RBC 4.33 M/mm3 (4.6-6.2) L 12/15/20 09:45 Hct 38.8 % (40-54) L 12/13/20 06:45 MCV 96.5 fL (80-94) H 12/12/20 06:24 MCH 34.2 pg (27.0-32.0) H 12/15/20 09:45 MCHC 36.8 g/dL (32-36) H 12/15/20 09:45 RDW Std Deviation 46.2 fl (35.1-43.9) H 12/15/20 09:45 Plt Count 124 K/mm3 (150-450) L 12/15/20 09:45 Neut % (Auto) 35.4 % (47-70) L 12/15/20 09:45 [place] % (Auto) 26.4 % (0-10) H 12/15/20 09:45 Absolute Neuts (auto) 0.8 X10^3/uL (2.0-7.7) L 12/15/20 09:45 Absolute Lymphs (auto) 0.76 X10^3/uL (0.83-4.51) L 12/15/20 09:45 APTT 38.0 Seconds (24.1-36.2) H 12/14/20 12:12 Sodium 130 mmol/L (136-145) L 12/15/20 09:45 Chloride 97 mmol/L (98-107) L 12/15/20 09:45 Carbon Dioxide 20.0 mmol/L (21.0-32.0) L 12/14/20 05:58 BUN 19 mg/dL (7-18) H 12/15/20 09:45 Creatinine 1.40 mg/dL (0.70-1.30) H 12/15/20 09:45 Est GFR (MDRD) Non-Af 52 mL/min (>60) L 12/15/20 09:45 Serum Osmolality 256 mOsm/KG (280-301) L 12/13/20 11:20 Calcium 7.5 mg/dL (8.5-10.1) L 12/15/20 09:45 AST 110 U/L (15-37) H 12/14/20 05:58 ALT 74 U/L (16-61) H 12/14/20 05:58 Ammonia < 10.0 umol/L (11-32) L 12/12/20 16:44 HDL Cholesterol 35 mg/dL (40-) L 12/14/20 05:58 - Assessment Food and Nutrient Intake: Poor PO intake at meals since admission. However, at bedside states appetite/intake has been chronically poor and that pt eats very little at home. denies wt changes, thinks wt ~1 month ago was 138#. CBW 131.4#-6.6#/5% wt loss is significant for moderate malnutrition. - Nutrition Diagnosis: Clinical Problem Chronic Disease or Condition Related Malnutrition Clinical Problem - Etiology: moderate, chronic malnutrition r/t inadequate energy intake d/t decreased appetite (possibly r/t mental status) Clinical Problem - Signs/Symptoms: as evidenced by estimated PO intake meeting <75% of nutritional needs >3 months, unintentional wt loss of 6.6#/5% x 1 month Status: Active Problem - Protein Calorie Malnutrition Evidence of Malnutrition Exists: Yes Moderate Protein Calorie Malnutrition: Chronic - Nutrition Intervention Nutrition Prescription: [id number] calories/day (1.3xRMR). 50-60 g protein/day (1.0g/kg). 1500mL fluid/day (25mL/kg) - Food / Nutrient Delivery Interventions Summary of nutrition intervention:: Nutrition education provided, Provide oral nutrition supplement Nutrition support ordered as / adjusted to:: continue regular diet as tolerated; fluid restriction d/t SIADH. Will d/c Ensure d/t reported intolerance and add chocolate milk, magic cup w/ meals instead. Will closely monitor PO intake and provide further recommendations as indicated. Nutrition education provided?: Yes Nutrition Counseling: Lengthy discussion w/ about pt's nutritional status. has been refusing Ensure for pt today because she does not want him to vomit any further. is agreeable to providing chocolate milk w/ meals and chocolate magic cup at dinner for additional calories/protein if consumed. is concerned pt is wasting foods and doesn't want to overwhelm pt w/ tray items. Agreeable to reducing portion sizes until PO intake improves. Coordination of Nutrition Care: Noted concerns in physician documentation about PO intake, possible need for NGT for enteral nutrition support. Pt appears impulsive at times, unsure if he would leave a NGT intact. May benefit from appetite stimulant, as appears that PO intake is chronically poor. - MNT Monitoring Active Nutrition Patient: Yes Nutrition Status: Requires Follow Up 3-5 Days
[2020-12-15 16:29] VITALS: BMI 22.5
--- NOTE | 2020-12-15 17:19 | PCM.PN.REN ---
Subjective Subjective mental status is better Objective Data Objective Data Vital Signs: Vital Signs Temp Pulse Resp BP Pulse Ox 97.6 F L 71 16 129/71 H 98 12/15/20 13:45 12/15/20 13:45 12/15/20 13:45 12/15/20 13:45 12/15/20 13:45 Oxygen Flow Rate (L/min) [6] 2 Oxygen Flow Rate (L/min) [5] 2 Oxygen Flow Rate (L/min) [4] 2 Oxygen Flow Rate (L/min) [3] 2 Oxygen Flow Rate (L/min) [2] 2 Oxygen Flow Rate (L/min) [1 ( 2 Initial Baseline)] Oxygen Delivery Method [6] Nasal Cannula Oxygen Delivery Method [5] Nasal Cannula Oxygen Delivery Method [4] Nasal Cannula Oxygen Delivery Method [3] Nasal Cannula Oxygen Delivery Method [2] Nasal Cannula Oxygen Delivery Method [1 ( Nasal Cannula Initial Baseline)] Oxygen Delivery Method Room Air Weight: 59.6 kg Body Mass Index (BMI) 22.5 Intake & Output: Intake and Output for Last 24 Hours 12/13/20 12/14/20 12/15/20 23:59 23:59 23:59 Intake Total 1561.25 / 1581.25 1037.75 / 1357.75 896 / 896 Output Total 200 / 200 100 / 500 400 / 400 Balance 1361.25 / 1381.25 937.75 / 857.75 496 / 496 Lab / Micro Data Result Diagrams: 12/15/20 09:45 12/15/20 09:45 Labs: Laboratory Results - last 24 hr 12/14/20 12/14/20 12/14/20 14:39 14:39 17:29 WBC RBC Hgb Hct MCV MCH MCHC RDW Std Deviation RDW Coeff of Cris Plt Count MPV Immature Gran % (Auto) Neut % (Auto) Lymph % (Auto) [place] % (Auto) Eos % (Auto) Baso % (Auto) Absolute Neuts (auto) Absolute Lymphs (auto) Nucleated RBC % Differential Comment Sodium 127 L Potassium Chloride Carbon Dioxide Anion Gap BUN Creatinine Estim Creat Clear Calc Est GFR (MDRD) Af Amer Est GFR (MDRD) Non-Af BUN/Creatinine Ratio Glucose Calcium CSF Comment Reviewed Syphilis Total Ab Miscellaneous Cytology SEE PATHOLOGY REPORT 12/15/20 12/15/2021 09:45 09:45 13:30 WBC 2.1 L RBC 4.33 L Hgb 14.8 Hct 40.2 MCV 92.8 MCH 34.2 H MCHC 36.8 H RDW Std Deviation 46.2 H RDW Coeff of Cris 13.5 Plt Count 124 L MPV 8.9 Immature Gran % (Auto) 0.500 Neut % (Auto) 35.4 L Lymph % (Auto) 35.8 [place] % (Auto) 26.4 H Eos % (Auto) 1.4 Baso % (Auto) 0.5 Absolute Neuts (auto) 0.8 L Absolute Lymphs (auto) 0.76 L Nucleated RBC % 0 Differential Comment COMMENT Sodium 130 L Potassium 3.7 Chloride 97 L Carbon Dioxide 26.0 Anion Gap 7 BUN 19 H Creatinine 1.40 H Estim Creat Clear Calc 34.06 Est GFR (MDRD) Af Amer 62 Est GFR (MDRD) Non-Af 52 L BUN/Creatinine Ratio 13.6 Glucose 99 Calcium 7.5 L CSF Comment Syphilis Total Ab Non-reactive Miscellaneous Cytology Micro: Microbiology 12/14/20 14:39 Csf, Spinal Fluid Gram Stain - Final 12/14/20 14:39 Csf, Spinal Fluid CSF Culture - Preliminary Culture exhibits no growth. 12/11/20 19:55 Mucosa - Nose SARS-CoV-2 Antigen (Rapid) - Final Physical Exam Narrative more alert today no obvious distress no pallor no icterus no JVD s1s2 no murmurs lungs clear abdomen soft no organomegaly no edema no cyanosis Assessment & Plan Assessment/Plan (1) Hyponatremia: PLAN: Reviewed records from primary care physician's office. His sodium was normal as of May 2020. Presented with a sodium of 130. down to 122. Urine osmolality almost 700. Urine sodium 95. Labs are consistent with SIADH. Volume status appears okay. TSH and cortisol are normal. Chest x-ray is clear. All his blood counts were normal in May. Currently has leukopenia and thrombocytopenia. Etiology of altered mental status is likely some cerebral pathology. Most likely SIADH related to intracranial events. for treatment he has elevated LFTs. hence will hold vaptans. sodium is better today. cr is higher, dc lasix sodium is better at 130. will likely dc salt tablets soon. (2) SIADH (syndrome of inappropriate ADH production):
[2020-12-15 19:35] VITALS: PULSE 98; RESP 18
[2020-12-15] MEDS: Acetaminophen 325 MG Tablet 650 MG PO (21:03)
[2020-12-15] MEDS: Montelukast 10 MG Tablet PO (21:04)
[2020-12-15 21:20] VITALS: BP 125/60; PULSE 89; RESP 16; TEMP 36.1; O2SAT 96
--- NOTE | 2020-12-15 22:41 | NURSING ---
pt attempting to hit and kick staff. TYPE COPY EXAMINER notified.
[2020-12-15] MEDS: Haloperidol Lactate 5 MG/ML Vial 3 MG IV (22:45)
[2020-12-16 02:08] VITALS: BP 144/53; PULSE 80; RESP 16; TEMP 36.2; O2SAT 98
[2020-12-16 06:09] VITALS: BP 146/47; PULSE 72; RESP 16; TEMP 36.2; O2SAT 99
[2020-12-16] MEDS: Sodium Chloride 1 GM Tablet 2 GM PO ×3 (06:11→20:06)
[2020-12-16] MEDS: 0.9% Saline Lock 10 ML Syringe IV (06:14)
[2020-12-16 06:55] LABS: Absolute Lymphocyte Count 0.84 X10^3/uL (0.83-4.51); Absolute Neutrophil Count 0.6 X10^3/uL (2.0-7.7); Eosinophil# 0.06 X10^3/uL; Eosinophils% 3.1 % (0-5); Hematocrit 37.5 % (40-54); Hemoglobin 13.7 g/dL (13.0-16.5); Lymphocyte # 0.84 X10^3/ul (0.83-4.51); Lymphocyte % 43.1 % (19-41); Mean Corp Hgb Conc 36.5 g/dL (32-36); Mean Corpuscular Volume 93.1 fL (80-94); Mean Platelet Vol. 9.2 fl (6.2-12.0); Monocyte# 0.42 X10^3/uL; Monocyte% 21.5 % (0-10); NRBC Flagged by Analyzer 0 % (0-5); Neutrophil # 0.62 X10^3/uL (2.7-7.7); Neutrophil % 31.8 % (47-70); POSITIVE DIFFERENTIAL YES; POSITIVE MORPHOLOGY YES; Platelet Count 107 K/mm3 (150-450); RBC Distribution Width CV 13.3 % (11.6-14.6); RBC Distribution Width SD 45.5 fl (35.1-43.9); Red Blood Count 4.03 M/mm3 (4.6-6.2)
[2020-12-16 07:00] LABS: Differential Indicated SCAN CRITERIA MET
[2020-12-16 07:23] LABS: Anion Gap 8 (5-15); BUN 16 mg/dL (7-18); Calcium,Total 7.8 mg/dL (8.5-10.1); Chloride 101 mmol/L (98-107); Creatinine, Serum 0.94 mg/dL (0.70-1.30); EST Glomerular Filtration Rate 82 mL/min (>60); Est Glom Filt Rate - Afr Amer 99 mL/min (>60); Estimated Creatinine Clearance 50.73 ml/min; Glucose 93 mg/dL (74-106); Potassium 3.6 mmol/L (3.5-5.1); Sodium Level 133 mmol/L (136-145)
[2020-12-16 07:26] LABS: Atypical Lymphocyte 1+ %; Differential Comment SCANNED
[2020-12-16 07:31] VITALS: PULSE 75; RESP 16; O2SAT 98
[2020-12-16] MEDS: Budesonide Respules 0.5 MG/2 ML AMPUL.NEB. INHALATION ×2 (07:31→19:34)
[2020-12-16] MEDS: Aspirin E.C. 81 MG Tablet PO (09:10)
[2020-12-16] MEDS: Carvedilol 3.125 MG TABLET PO ×2 (09:11→20:04)
[2020-12-16] MEDS: Menthol/Lanolin/Calamine/Znox 113 GM Tube 1 APPLIC TOPICAL ×2 (09:12→20:06)
[2020-12-16] MEDS: BACITRACIN 15 GM Tube 1 APPLIC TOPICAL ×2 (10:41→20:05)
--- NOTE | 2020-12-16 11:08 | PCM.PN.HOSP ---
Subjective Subjective Did well through the day yesterday. Had impulsiveness and some agitation overnight. Was somewhat restless. Much improved mental status today. He is more alert and more interactive. Objective Data Objective Data Vital Signs: Vital Signs Temp Pulse Resp BP Pulse Ox 97.2 F L 75 16 146/47 H 98 12/16/20 06:09 12/16/20 07:31 12/16/20 07:31 12/16/20 06:09 12/16/20 07:31 Oxygen Flow Rate (L/min) [6] 2 Oxygen Flow Rate (L/min) [5] 2 Oxygen Flow Rate (L/min) [4] 2 Oxygen Flow Rate (L/min) [3] 2 Oxygen Flow Rate (L/min) [2] 2 Oxygen Flow Rate (L/min) [1 ( 2 Initial Baseline)] Oxygen Delivery Method [6] Nasal Cannula Oxygen Delivery Method [5] Nasal Cannula Oxygen Delivery Method [4] Nasal Cannula Oxygen Delivery Method [3] Nasal Cannula Oxygen Delivery Method [2] Nasal Cannula Oxygen Delivery Method [1 ( Nasal Cannula Initial Baseline)] Oxygen Delivery Method Room Air Weight: 59.6 kg Body Mass Index (BMI) 22.5 Intake & Output: Intake and Output for Last 24 Hours 12/14/20 12/15/20 12/16/20 23:59 23:59 23:59 Intake Total 1037.75 / 1357.75 1246 / 1246 100 / 100 Output Total 100 / 500 400 / 400 300 / 300 Balance 937.75 / 857.75 846 / 846 -200 / -200 Lab / Micro Data Result Diagrams: 12/16/20 06:48 12/16/20 06:48 Labs: Laboratory Results - last 24 hr 12/14/20 12/15/20 12/16/20 14:39 13:30 06:48 WBC 2.0 L RBC 4.03 L Hgb 13.7 Hct 37.5 L MCV 93.1 MCH 34.0 H MCHC 36.5 H RDW Std Deviation 45.5 H RDW Coeff of Cris 13.3 Plt Count 107 L MPV 9.2 Immature Gran % (Auto) 0.500 Neut % (Auto) 31.8 L Lymph % (Auto) 43.1 H [place] % (Auto) 21.5 H Eos % (Auto) 3.1 Baso % (Auto) 0.0 Absolute Neuts (auto) 0.6 L Absolute Lymphs (auto) 0.84 Nucleated RBC % 0 Differential Comment SCANNED Atypical Lymphocytes 1+ Sodium Potassium Chloride Carbon Dioxide Anion Gap BUN Creatinine Estim Creat Clear Calc Est GFR (MDRD) Af Amer Est GFR (MDRD) Non-Af BUN/Creatinine Ratio Glucose Calcium Syphilis Total Ab Non-reactive Miscellaneous Cytology SEE PATHOLOGY REPORT 12/16/20 06:48 WBC RBC Hgb Hct MCV MCH MCHC RDW Std Deviation RDW Coeff of Cris Plt Count MPV Immature Gran % (Auto) Neut % (Auto) Lymph % (Auto) [place] % (Auto) Eos % (Auto) Baso % (Auto) Absolute Neuts (auto) Absolute Lymphs (auto) Nucleated RBC % Differential Comment Atypical Lymphocytes Sodium 133 L Potassium 3.6 Chloride 101 Carbon Dioxide 24.0 Anion Gap 8 BUN 16 Creatinine 0.94 Estim Creat Clear Calc 50.73 Est GFR (MDRD) Af Amer 99 Est GFR (MDRD) Non-Af 82 BUN/Creatinine Ratio 17.0 Glucose 93 Calcium 7.8 L Syphilis Total Ab Miscellaneous Cytology Micro: Microbiology 12/13/20 20:36 Blood Culture (Wb) - Anticubital Left Blood Culture - Preliminary No growth in 48 hours. 12/13/20 20:29 Blood Culture (Wb) - Anticubital Right Blood Culture - Preliminary No growth in 48 hours. 12/14/20 14:39 Csf, Spinal Fluid Gram Stain - Final 12/14/20 14:39 Csf, Spinal Fluid CSF Culture - Preliminary Culture exhibits no growth. 12/11/20 19:55 Mucosa - Nose SARS-CoV-2 Antigen (Rapid) - Final Physical Exam Const alert, no apparent distress and healthy appearing Constitutional Narrative: Elderly white male sitting up in bed, watching television, is alert, much more interactive, but remains somewhat confused, has intermittent periods of lucidity Orientation / Consciousness: awake Exam Limitations: no limitations HEENT normocephalic and head/scalp atraumatic Head and Scalp: normocephalic Resp normal respiratory effort, no retractions, no use of accessory muscles and clear to auscultation bilaterally Cardio regular rate, regular rhythm, S1 normal heart sound, S2 normal heart sound, no murmurs, no rub, no gallops, no clicks and no JVD Peripheral Pulses: pulses 2+ throughout GI normal to inspection, nondistended, normoactive bowel sounds, soft to palpation, non-tender and non-distended Extremity normal to inspection, full ROM and no clubbing, cyanosis or edema Skin Lesions: no lesions Rashes: no rashes Trauma: no lacerations or abrasions Neuro deep tendon reflexes 2+ bilaterally Neuro Narrative: Moves extremities purposefully and to command, hearing remains an issue Sensorium / Orientation: awake, alert and oriented to person Psych mental status grossly normal Psych Narrative: Much less fidgety, more calm, more appropriate Activity / Motor Behavior: restless Memory / Cognition: cognition impaired Assessment & Plan Assessment/Plan (1) Encephalopathy: (2) SIADH (syndrome of inappropriate ADH production): (3) Acute confusion: (4) Essential hypertension: (5) Hyponatremia: (6) Transaminitis: (7) Chronic hyponatremia: (8) Acute viral syndrome: PLAN: Assessment: Acute viral syndrome Encephalopathy Confusion Debility Mild temperature elevation Chronic leukopenia Thrombocytopenia Transaminitis [place]ANDON-resolved Acute on Chronic hyponatremia secondary to SIADH HFrEF-compensated Diastolic dysfunction-stage I Asthma Chronic right shoulder pain Suspected dementia versus mild cognitive impairment [place] with cochlear implant and hearing aid Poor PO intake Plan: -Urine and Sodium Osm/Urine Na looks like SIADH -Likely related to neurological status -CT chest was negative -Continue fluid restriction at 1500 cc daily -Continue salt tablets for now but suspect will be able to discontinue prior to discharge -Sodium is now 133--> this is the highest he has been since he has been admitted -Blood cultures show no growth at 48 hours -Patient remains without temperature elevations or fever -ID input appreciated -CT had negative/CTA head and neck stable mild nonobstructive carotid artery disease -EEG is negative -Continue acyclovir for now -LP was performed yesterday awaiting viral studies -Protein is mildly elevated -Glucose within normal limits -Cell counts have not been entered -Gram stain was negative and preliminary culture shows no growth -Awaiting viral PCR's -Neurology has reevaluated the patient and they agree that this is most likely related to an acute viral syndrome -Echo shows EF of 44% which is depressed when compared to previous echocardiogram where it was 55% -Question whether or not this is virally mediated -Beta-doris started--> Coreg 3.125 twice daily -Would recommend repeat echocardiogram in 6 weeks -Repeat transaminases in the morning -Continue home inhalers -Continue PT OT - is amenable to correction facility placement at discharge for rehab purposes -Patient does have a facility available and will be ready likely on Friday for discharge Charges/Coding Visit Charges Inpatient E&M: 25944 Subs Hosp L3
[2020-12-16 14:00] VITALS: BP 132/43; PULSE 69; RESP 16; TEMP 36.4; O2SAT 100
[2020-12-16 19:34] VITALS: PULSE 86; RESP 18
[2020-12-16 19:59] VITALS: BP 158/63; PULSE 82; RESP 18; TEMP 36.5; O2SAT 97
[2020-12-16] MEDS: QUEtiapine 25 MG Tablet 12.5 MG PO (20:04)
[2020-12-16] MEDS: Montelukast 10 MG Tablet PO (20:04)
[2020-12-16] MEDS: MELATONIN 3 MG TABLET PO (20:05)
[2020-12-17 02:01] VITALS: BP 146/61; PULSE 78; RESP 16; TEMP 36.3; O2SAT 95
[2020-12-17] MEDS: Sodium Chloride 1 GM Tablet 2 GM PO (06:12)
[2020-12-17 06:48] LABS: AST(SGOT) 93 U/L (15-37); Alanine Aminotransfer ALT/SGPT 65 U/L (16-61); Alkaline Phosphatase 56 U/L (45-117); Anion Gap 8 (5-15); BUN 14 mg/dL (7-18); BUN/Creat Ratio 15.8 RATIO (10-20); Calcium,Total 8.2 mg/dL (8.5-10.1); Chloride 103 mmol/L (98-107); Creatinine, Serum 0.88 mg/dL (0.70-1.30); EST Glomerular Filtration Rate 88 mL/min (>60); Est Glom Filt Rate - Afr Amer 106 mL/min (>60); Estimated Creatinine Clearance 54.19 ml/min; Globulin 2.9 g/dL (2.2-4.2); Glucose 95 mg/dL (74-106); Protein, Total 5.9 g/dL (6.4-8.2); Sodium Level 136 mmol/L (136-145)
[2020-12-17 07:49] VITALS: PULSE 77; RESP 16; O2SAT 97
[2020-12-17] MEDS: Budesonide Respules 0.5 MG/2 ML AMPUL.NEB. INHALATION ×2 (07:49→19:27)
[2020-12-17 08:27] VITALS: BP 166/45; PULSE 71; RESP 16; TEMP 36.4; O2SAT 98
[2020-12-17] MEDS: Menthol/Lanolin/Calamine/Znox 113 GM Tube 1 APPLIC TOPICAL ×2 (08:57→20:05)
[2020-12-17] MEDS: BACITRACIN 15 GM Tube 1 APPLIC TOPICAL ×2 (08:57→20:05)
[2020-12-17] MEDS: Carvedilol 3.125 MG TABLET PO ×2 (08:57→20:06)
[2020-12-17] MEDS: Enoxaparin 40 MG/0.4 ML Syringe SC (08:58)
[2020-12-17] MEDS: Aspirin E.C. 81 MG Tablet PO (08:58)
--- NOTE | 2020-12-17 11:44 | PCM.PN.HOSP ---
Subjective Subjective Patient is very sleepy this morning. He was given Seroquel again last evening for behavior. He had 25 mg in the past and was quite sedated the following day. 12.5 mg given last night and while he seems to be slightly less sedated he is still markedly sedated as compared to yesterday. We will avoid Seroquel. Patient's states he was much better yesterday and closer to his baseline but not yet baseline. She agrees that he is much sleepier today than he had been when she left him last evening. Objective Data Objective Data Vital Signs: Vital Signs Temp Pulse Resp BP Pulse Ox 97.6 F L 71 16 166/45 H 98 12/17/20 08:27 12/17/20 08:27 12/17/20 08:27 12/17/20 08:27 12/17/20 08:27 Oxygen Flow Rate (L/min) [6] 2 Oxygen Flow Rate (L/min) [5] 2 Oxygen Flow Rate (L/min) [4] 2 Oxygen Flow Rate (L/min) [3] 2 Oxygen Flow Rate (L/min) [2] 2 Oxygen Flow Rate (L/min) [1 ( 2 Initial Baseline)] Oxygen Delivery Method [6] Nasal Cannula Oxygen Delivery Method [5] Nasal Cannula Oxygen Delivery Method [4] Nasal Cannula Oxygen Delivery Method [3] Nasal Cannula Oxygen Delivery Method [2] Nasal Cannula Oxygen Delivery Method [1 ( Nasal Cannula Initial Baseline)] Oxygen Delivery Method Room Air Weight: 59.6 kg Body Mass Index (BMI) 22.5 Intake & Output: Intake and Output for Last 24 Hours 12/15/20 12/16/20 12/17/20 23:59 23:59 23:59 Intake Total 1246 / 1246 650 / 650 Output Total 400 / 400 300 / 300 Balance 846 / 846 350 / 350 Lab / Micro Data Result Diagrams: 12/16/20 06:48 12/17/20 06:14 Labs: Laboratory Results - last 24 hr 12/17/20 06:14 Sodium 136 Potassium 4.0 Chloride 103 Carbon Dioxide 25.0 Anion Gap 8 BUN 14 Creatinine 0.88 Estim Creat Clear Calc 54.19 Est GFR (MDRD) Af Amer 106 Est GFR (MDRD) Non-Af 88 BUN/Creatinine Ratio 15.8 Glucose 95 Calcium 8.2 L Total Bilirubin 0.30 AST 93 H ALT 65 H Alkaline Phosphatase 56 Total Protein 5.9 L Albumin 3.0 L Globulin 2.9 Albumin/Globulin Ratio 1.0 Micro: Microbiology 12/14/20 14:39 Csf, Spinal Fluid Gram Stain - Final 12/14/20 14:39 Csf, Spinal Fluid CSF Culture - Preliminary Culture exhibits no growth. 12/13/20 20:36 Blood Culture (Wb) - Anticubital Left Blood Culture - Preliminary No growth in 48 hours. 12/13/20 20:29 Blood Culture (Wb) - Anticubital Right Blood Culture - Preliminary No growth in 48 hours. 12/11/20 19:55 Mucosa - Nose SARS-CoV-2 Antigen (Rapid) - Final Physical Exam Const alert, no apparent distress and healthy appearing Constitutional Narrative: Elderly white male sitting up in bed, sleepy this morning, awakens but less interactive and seems very tired Orientation / Consciousness: awake Exam Limitations: no limitations HEENT normocephalic and head/scalp atraumatic Head and Scalp: normocephalic Resp normal respiratory effort, no retractions, no use of accessory muscles and clear to auscultation bilaterally Cardio regular rate, regular rhythm, S1 normal heart sound, S2 normal heart sound, no murmurs, no rub, no gallops, no clicks and no JVD Peripheral Pulses: pulses 2+ throughout GI normal to inspection, nondistended, normoactive bowel sounds, soft to palpation, non-tender and non-distended Extremity normal to inspection, full ROM and no clubbing, cyanosis or edema Skin no wounds Lesions: no lesions Rashes: no rashes Trauma: no lacerations or abrasions Neuro deep tendon reflexes 2+ bilaterally Neuro Narrative: Moves extremities symmetrically, patient less interactive and sleepy today Psych mental status grossly normal Psych Narrative: Very sleepy today Activity / Motor Behavior: restless Memory / Cognition: cognition impaired Assessment & Plan Assessment/Plan (1) Encephalopathy: (2) SIADH (syndrome of inappropriate ADH production): (3) Acute confusion: (4) Essential hypertension: (5) Hyponatremia: (6) Transaminitis: (7) Chronic hyponatremia: (8) Acute viral syndrome: PLAN: Assessment: Acute viral syndrome Encephalopathy Confusion Debility Mild temperature elevation Acute on chronic leukopenia Thrombocytopenia Transaminitis-improving Acute on Chronic hyponatremia secondary to SIADH HFrEF-compensated Diastolic dysfunction-stage I Asthma Chronic right shoulder pain Suspected dementia versus mild cognitive impairment [place] with cochlear implant and hearing aid Plan: -Urine and Sodium Osm/Urine Na looks like SIADH -Likely related to neurological status -CT chest was negative -Continue fluid restriction at 1500 cc daily -Continue salt tablets but decreased to 1 g twice twice daily -Sodium has now normalized -Blood cultures show no growth -No further temperature elevation/fever -ID input appreciated -CT had negative/CTA head and neck stable mild nonobstructive carotid artery disease -EEG is negative -LP was performed yesterday awaiting viral studies -Protein is mildly elevated -Glucose within normal limits -Cell counts have not been entered -Gram stain was negative and preliminary culture shows no growth -Still awaiting viral PCR's -Neurology has reevaluated the patient and they agree that this is most likely related to an acute viral syndrome -Echo shows EF of 44% which is depressed when compared to previous echocardiogram where it was 55% -Question whether or not this is virally mediated -Beta-doris started--> Coreg 3.125 twice daily -Would recommend repeat echocardiogram in 6 weeks -Blood pressure elevations--> low-dose Coreg initiated yesterday, add Norvasc today -Serum transaminases are now trending down -Continue home inhalers -Continue PT OT - is amenable to long-term facility placement at discharge for rehab purposes -Probable discharge tomorrow to skilled facility
[2020-12-17 13:16] VITALS: BP 138/44; PULSE 68; RESP 16; TEMP 36.6; O2SAT 96
[2020-12-17] MEDS: Sodium Chloride 1 GM Tablet PO ×2 (13:18→20:31)
[2020-12-17] MEDS: amLODIPine 5 MG Tablet PO (13:18)
--- NOTE | 2020-12-17 17:15 | PCM.PN.REN ---
Subjective Subjective no new events somewhat confused apparently related to sedatives from last night Objective Data Objective Data Vital Signs: Vital Signs Temp Pulse Resp BP Pulse Ox 97.9 F 68 16 138/44 H 96 12/17/20 13:16 12/17/20 13:16 12/17/20 13:16 12/17/20 13:16 12/17/20 13:16 Oxygen Flow Rate (L/min) [6] 2 Oxygen Flow Rate (L/min) [5] 2 Oxygen Flow Rate (L/min) [4] 2 Oxygen Flow Rate (L/min) [3] 2 Oxygen Flow Rate (L/min) [2] 2 Oxygen Flow Rate (L/min) [1 ( 2 Initial Baseline)] Oxygen Delivery Method [6] Nasal Cannula Oxygen Delivery Method [5] Nasal Cannula Oxygen Delivery Method [4] Nasal Cannula Oxygen Delivery Method [3] Nasal Cannula Oxygen Delivery Method [2] Nasal Cannula Oxygen Delivery Method [1 ( Nasal Cannula Initial Baseline)] Oxygen Delivery Method Room Air Weight: 59.6 kg Body Mass Index (BMI) 22.5 Intake & Output: Intake and Output for Last 24 Hours 12/15/20 12/16/20 12/17/20 23:59 23:59 23:59 Intake Total 1246 / 1246 650 / 650 Output Total 400 / 400 300 / 300 Balance 846 / 846 350 / 350 Lab / Micro Data Result Diagrams: 12/16/20 06:48 12/17/20 06:14 Labs: Laboratory Results - last 24 hr 12/17/20 06:14 Sodium 136 Potassium 4.0 Chloride 103 Carbon Dioxide 25.0 Anion Gap 8 BUN 14 Creatinine 0.88 Estim Creat Clear Calc 54.19 Est GFR (MDRD) Af Amer 106 Est GFR (MDRD) Non-Af 88 BUN/Creatinine Ratio 15.8 Glucose 95 Calcium 8.2 L Total Bilirubin 0.30 AST 93 H ALT 65 H Alkaline Phosphatase 56 Total Protein 5.9 L Albumin 3.0 L Globulin 2.9 Albumin/Globulin Ratio 1.0 Micro: Microbiology 12/14/20 14:39 Csf, Spinal Fluid Gram Stain - Final 12/14/20 14:39 Csf, Spinal Fluid CSF Culture - Preliminary Culture exhibits no growth. 12/13/20 20:36 Blood Culture (Wb) - Anticubital Left Blood Culture - Preliminary No growth in 48 hours. 12/13/20 20:29 Blood Culture (Wb) - Anticubital Right Blood Culture - Preliminary No growth in 48 hours. 12/11/20 19:55 Mucosa - Nose SARS-CoV-2 Antigen (Rapid) - Final Physical Exam Narrative more alert today no obvious distress no pallor no icterus no JVD s1s2 no murmurs lungs clear abdomen soft no organomegaly no edema no cyanosis Assessment & Plan Assessment/Plan (1) Hyponatremia: PLAN: Reviewed records from primary care physician's office. His sodium was normal as of May 2020. Presented with a sodium of 130. down to 122. Urine osmolality almost 700. Urine sodium 95. Labs are consistent with SIADH. Volume status appears okay. TSH and cortisol are normal. Chest x-ray is clear. All his blood counts were normal in May. Currently has leukopenia and thrombocytopenia. Etiology of altered mental status is likely some cerebral pathology. Most likely SIADH related to intracranial events. for treatment he has elevated LFTs. hence will hold vaptans. sodium is normal today mental status is normal ok to dc salt tablets from my end (2) SIADH (syndrome of inappropriate ADH production):
[2020-12-17 19:27] VITALS: PULSE 76; RESP 18
[2020-12-17] MEDS: LORazepam 0.5 MG Tablet PO (20:05)
[2020-12-17] MEDS: Montelukast 10 MG Tablet PO (20:06)
[2020-12-17] MEDS: MELATONIN 3 MG TABLET PO (20:08)
[2020-12-17 20:15] VITALS: BP 151/51; PULSE 75; RESP 18; TEMP 36.4; O2SAT 95
[2020-12-18 01:45] VITALS: BP 157/68; PULSE 86; RESP 18; TEMP 36.5; O2SAT 100
[2020-12-18] MEDS: Sodium Chloride 1 GM Tablet PO ×2 (05:29→14:07)
[2020-12-18] MEDS: Budesonide Respules 0.5 MG/2 ML AMPUL.NEB. INHALATION (06:38)
[2020-12-18 06:40] VITALS: PULSE 79; RESP 25; O2SAT 97
[2020-12-18 06:57] LABS: Absolute Lymphocyte Count 0.71 X10^3/uL (0.83-4.51); Absolute Neutrophil Count 0.4 X10^3/uL (2.0-7.7); Basophil# 0.01 X10^3/uL; Basophil% 0.6 % (0-1); Eosinophil# 0.16 X10^3/uL; Eosinophils% 9.8 % (0-5); Hematocrit 35.4 % (40-54); Hemoglobin 12.7 g/dL (13.0-16.5); Lymphocyte # 0.71 X10^3/ul (0.83-4.51); Lymphocyte % 43.6 % (19-41); Mean Corp Hgb Conc 35.9 g/dL (32-36); Mean Corpuscular Hgb 33.5 pg (27.0-32.0); Mean Corpuscular Volume 93.4 fL (80-94); Mean Platelet Vol. 8.9 fl (6.2-12.0); Monocyte# 0.32 X10^3/uL; Monocyte% 19.6 % (0-10); NRBC Flagged by Analyzer 0 % (0-5); Neutrophil # 0.43 X10^3/uL (2.7-7.7); Neutrophil % 26.4 % (47-70); POSITIVE DIFFERENTIAL YES; POSITIVE MORPHOLOGY YES; Platelet Count 116 K/mm3 (150-450); RBC Distribution Width CV 13.2 % (11.6-14.6); RBC Distribution Width SD 45.5 fl (35.1-43.9); Red Blood Count 3.79 M/mm3 (4.6-6.2); White Blood Count 1.6 K/mm3 (4.4-11.0)
[2020-12-18 07:06] LABS: Differential Indicated SCAN CRITERIA MET
[2020-12-18 07:20] LABS: Anion Gap 5 (5-15); BUN 13 mg/dL (7-18); BUN/Creat Ratio 15.9 RATIO (10-20); Calcium,Total 8.4 mg/dL (8.5-10.1); Chloride 101 mmol/L (98-107); Creatinine, Serum 0.82 mg/dL (0.70-1.30); EST Glomerular Filtration Rate 96 mL/min (>60); Est Glom Filt Rate - Afr Amer 116 mL/min (>60); Estimated Creatinine Clearance 58.16 ml/min; Glucose 92 mg/dL (74-106); Potassium 4.1 mmol/L (3.5-5.1); Sodium Level 134 mmol/L (136-145)
[2020-12-18 08:27] VITALS: BP 157/55; PULSE 80; RESP 16; TEMP 36.8; O2SAT 98
[2020-12-18] MEDS: Carvedilol 3.125 MG TABLET PO (08:48)
[2020-12-18] MEDS: Aspirin E.C. 81 MG Tablet PO (08:49)
[2020-12-18] MEDS: BACITRACIN 15 GM Tube 1 APPLIC TOPICAL (08:50)
[2020-12-18] MEDS: Menthol/Lanolin/Calamine/Znox 113 GM Tube 1 APPLIC TOPICAL (08:50)
[2020-12-18] MEDS: Enoxaparin 40 MG/0.4 ML Syringe SC (08:52)
[2020-12-18] MEDS: amLODIPine 5 MG Tablet PO (08:53)
--- NOTE | 2020-12-18 09:26 | CASEMGMT ---
Addendum entered by Ivon Felix 12/18/20 12:08: SW received message from Gala at [facility] stating they can accept pt, would like script for Ativan at night. SW will speak to physician. Original Note: Social Work Note SW placed a call to [facility] and spoke with Kacie, Kacie states Rasheeda can come to [facility] to reevaluate pt. SW in to speak with pt and Sayda. Sayda states I don't want to waste your time, I don't think he is good enough/better enough for [facility] to accept pt. Sayda is agreeable to pt not being reevaluated by [facility] and just having pt go to [facility]. SYDNIE placed a call to Gala at [facility] and left message updating her that pt did have Seroquel over the weekend, and pt did have some combativeness. SYDNIE faxed updated clinicals to [facility]. SW waiting for call back from [facility] to confirm they are still able to accept pt. Plan: SNF Ivon Felix NURSING ASSOCIATE, GENERAL LITHOGRAPHIC WORKER
[2020-12-18 14:47] VITALS: BP 108/48; PULSE 71; RESP 16; TEMP 36.4; O2SAT 100
--- NOTE | 2020-12-18 15:04 | PCM.PN.REN ---
Subjective Subjective Following for hyponatremia. The patient is awake but does not really follow commands. He denies chest pain, shortness of breath or nausea. There is no headaches. Objective Data Objective Data Vital Signs: Vital Signs Temp Pulse Resp BP Pulse Ox 97.6 F L 71 16 108/48 L 100 12/18/20 14:47 12/18/20 14:47 12/18/20 14:47 12/18/20 14:47 12/18/20 14:47 Oxygen Flow Rate (L/min) [6] 2 Oxygen Flow Rate (L/min) [5] 2 Oxygen Flow Rate (L/min) [4] 2 Oxygen Flow Rate (L/min) [3] 2 Oxygen Flow Rate (L/min) [2] 2 Oxygen Flow Rate (L/min) [1 ( 2 Initial Baseline)] Oxygen Delivery Method [6] Nasal Cannula Oxygen Delivery Method [5] Nasal Cannula Oxygen Delivery Method [4] Nasal Cannula Oxygen Delivery Method [3] Nasal Cannula Oxygen Delivery Method [2] Nasal Cannula Oxygen Delivery Method [1 ( Nasal Cannula Initial Baseline)] Oxygen Delivery Method Room Air Weight: 59.6 kg Body Mass Index (BMI) 22.5 Intake & Output: Intake and Output for Last 24 Hours 12/16/20 12/17/20 12/18/20 23:59 23:59 23:59 Intake Total 650 / 650 350 / 350 Output Total 300 / 300 250 / 250 500 / 500 Balance 350 / 350 -250 / -250 -150 / -150 Lab / Micro Data Result Diagrams: 12/18/20 06:50 12/18/20 06:50 Labs: Laboratory Results - last 24 hr 12/18/20 12/18/20 06:50 06:50 WBC 1.6 L RBC 3.79 L Hgb 12.7 L Hct 35.4 L MCV 93.4 MCH 33.5 H MCHC 35.9 RDW Std Deviation 45.5 H RDW Coeff of Cris 13.2 Plt Count 116 L MPV 8.9 Immature Gran % (Auto) 0.000 Neut % (Auto) 26.4 L Lymph % (Auto) 43.6 H [place] % (Auto) 19.6 H Eos % (Auto) 9.8 H Baso % (Auto) 0.6 Absolute Neuts (auto) 0.4 L Absolute Lymphs (auto) 0.71 L Nucleated RBC % 0 Sodium 134 L Potassium 4.1 Chloride 101 Carbon Dioxide 28.0 Anion Gap 5 BUN 13 Creatinine 0.82 Estim Creat Clear Calc 58.16 Est GFR (MDRD) Af Amer 116 Est GFR (MDRD) Non-Af 96 BUN/Creatinine Ratio 15.9 Glucose 92 Calcium 8.4 L Micro: Microbiology 12/14/20 14:39 Csf, Spinal Fluid Gram Stain - Final 12/14/20 14:39 Csf, Spinal Fluid CSF Culture - Final No growth in 72 hours. 12/13/20 20:36 Blood Culture (Wb) - Anticubital Left Blood Culture - Preliminary No growth in 48 hours. 12/13/20 20:29 Blood Culture (Wb) - Anticubital Right Blood Culture - Preliminary No growth in 48 hours. 12/11/20 19:55 Mucosa - Nose SARS-CoV-2 Antigen (Rapid) - Final Physical Exam Narrative more alert today no obvious distress no pallor no icterus no JVD s1s2 no murmurs lungs clear abdomen soft no organomegaly no edema no cyanosis Assessment & Plan Assessment/Plan (1) Hyponatremia: PLAN: Reviewed records from primary care physician's office. His sodium was normal as of May 2020. Hyponatremia secondary to SIADH. Sodium has been stable over the last 3 days. He presented initially with serum sodium of 122. Sodium level has improved at a safe rate. Continue current treatment. (2) SIADH (syndrome of inappropriate ADH production):
--- NOTE | 2020-12-18 16:17 | CASEMGMT ---
Addendum entered by Ivon Felix 12/18/20 17:01: SYDNIE faxed COVID test and tool and HENS to Gala at [facility]. Original in SNF folder and copy on pt's chart. SYDNIE accessed trip assist and arranged transportation via cot for 7:00pm. Transportation form completed and placed on SNF Folder and copy on pt's chart. SW in to speak with pt's Sayda, SW updated Sayda on discharge and transportation time. SYDNIE placed a call to Gala at [facility] and updated her on transportation time. SYDNIE updated RN and dental secretary on transportation time. SYDNIE asked dental secretary to fax transfer summary, signed medication list and signed scripts to [facility] when completed. SYDNIE updated RN to make sure pt has script for Ativan. Plan: [facility] skilled today with Physician's transportation via cot at 7:00pm Original Note: Social Work Note SYDNIE updated physician that pt is able to discharge to [facility] today. SNF is requesting script for Ativan. Pt is medically ready for discharge today. SYDNIE placed a call to Gala at [facility] and left message that pt will be discharged today, with script for Ativan. SYDNIE completed convalescent 7000 in HENS. Plan: [facility] Ivon Felix PRODUCTION FOREMAN, STONE RUBBER
--- NOTE | 2020-12-18 16:35 | TREXTCAR_ITS ---
Diet 12/14/20 17:55 Diet: Regular - General Is pt able to select menu?: No Diet Comments: chocolate milk w/ meals; chocolate magic cup w/ dinner Wound(s) LUMBAR: Wound Type: Puncture Therapies Weight Bearing: Weight bearing as tolerated Physical Therapy: Eval and Treat Occupational Therapy: Eval and Treat Speech Therapy: Eval and Treat Problem/Diagnosis (1) Hyponatremia: Status: Acute (2) SIADH (syndrome of inappropriate ADH production): Status: Acute (3) Acute viral syndrome: Status: Acute (4) Neutropenia: Status: Acute (5) Chronic hyponatremia: Status: Chronic (6) Encephalopathy: Status: Acute (7) Essential hypertension: Status: Chronic (8) Cardiomyopathy: Status: Acute Comment: etiology unknown Allergies/Procedures Done in Hospital Allergies No Known Allergies Allergy (Verified 12/11/20 17:04) Procedures: 2-D Echocardiogram and - (spinal tap) Type of Care/Length of Stay Estimated LOS: Convalescent Care Less Than 30 days Type of Care Needed: Skilled Rehab Potential: Good Prognosis: Good Additional Orders/Day of Discharge H&P will serve as current which was dated: 12/11/20 Day of Discharge: 12/18/20 Dietary and Speech Recommendations Dietitian Recommendations/Changes: Continue regular diet as tolerated; fluid restriction d/t SIADH. Continue chocolate milk, magic cup w/ meals instead. Rec appetite stimulant. [place]ked [facility] [place] wt. Speech Linguistic Eval Summary: Pt. presents with moderate to severe cognitive impairment. Pt was oriented to self, , and year and month with delay. Pt. was not oriented to place, city, [place] or date. Pt. was unable to complete automatic naming tasks and other naming tasks. Pt. was unable to recall 's name. Pt. was able to follow 1-step directions when asked and gave visual examples with 66% accuracy. Pt. was unable to recall solutions to problems and gave no attempted responses. Pt. was [place] and wearing a hearing aide. states prior to the assessment he was independent and she had no cognitive concerns. Pt. presented with slow processing and required repetition and extra time to respond to tasks. Discharge Plan Admission Admit Date/Time: 12/12/20 16:08 Primary Reason for Your Visit: encephalopathy, generalized weakness Attending Provider: Daniel Aguilar Primary Care Provider: Jamie Yang Consulting Providers: Prasanna Franklin ; Finn Enamorado Discharge Orders/Prescriptions Prescriptions: New amlodipine 5 mg Tablet 5 mg PO DAILY 1 Days Qty: 1 RF: 0 aspirin 81 mg Tablet,Delayed Release (Dr/Ec) 81 mg PO BREAKFAST Qty: 1 RF: 0 sodium chloride 1 gram Tablet 1 g PO BID Qty: 1 RF: 0 carvedilol 3.125 mg Tablet 3.125 mg PO BID Qty: 1 RF: 0 lorazepam 0.5 mg Tablet 0.5 mg PO QHS Qty: 5 RF: 0 nystatin-triamcinolone 100,000-0.1 unit/g-% cream 1 applic topical BID Qty: 15 RF: 0 lisinopril 5 mg tablet 5 mg PO DAILY Qty: 1 RF: 0 Continued triamcinolone acetonide [Nasacort] 55 mcg aerosol,spray 1 spray INTRANASAL DAILY PRN (Reason: Allergic Symptoms) RF: 0 montelukast 10 mg tablet 10 mg PO QHS RF: 0 albuterol sulfate [Ventolin HFA] 90 mcg/actuation HFA aerosol inhaler 2 puff INHALATION Q4H PRN (Reason: shortness of breath or wheezing) Qty: 18 RF: 6 fluticasone propion-salmeterol [AirDuo RespiClick] 113-14 mcg/actuation aerosol powdr breath activated 1 inh INHALATION BID Qty: 1 RF: 6 Discontinued tramadol 50 mg tablet 50 mg PO Q8 PRN (Reason: Pain) RF: 0 meloxicam 7.5 mg tablet 7.5 mg PO DAILY RF: 0 Referrals / Follow Up: Jamie Yang MD [Primary Care Provider] - Disposition Disposition (needs filled in before D/C Order can be placed): [facility]
--- NOTE | 2020-12-18 20:38 | NURSING ---
Late note: I was unable to take the pt out of the computer since there didn't seem to be a discharge order even though Dr. Aguilar's transfer summary addressed discharge. Texted Dr. Aguilar about discharge order and he called the floor. Stated he was having problems with discharge orders today. Advised him that I think I fixed it and he was fine with that since it was definitely his intention for the pt to be discharged.
--- NOTE | 2020-12-20 18:43 | DS.PCM_ITS ---
Providers Date of Admission: 12/12/20 Date of Discharge: 12/18/20 Primary Care Physician: Dr. Jamie Yang MD Consultations 12/13/20 14:03 Consult: Nephrology Routine Consulting Provider: Prasanna Franklin Reason for Consult: Hyponatremia EMERGENT Consult: No Notified: Yes Date Notified: 12/13/20 Time Notified: 14:03 Method of Notification: Verbal 12/13/20 17:38 Consult: Infectious Disease Routine Consulting Provider: Finn Enamorado Reason for Consult: Fever of unknown origin, encephalopathy EMERGENT Consult: No Notified: Yes Date Notified: 12/14/20 Time Notified: 07:59 Method of Notification: Answering Service Reason For Visit: DEBILITY Diagnosis Discharge Diagnosis (1) Hyponatremia: Status: Acute Code(s): E87.1 - Hypo-osmolality and hyponatremia (2) SIADH (syndrome of inappropriate ADH production): Status: Acute Code(s): E22.2 - Syndrome of inappropriate secretion of antidiuretic hormone (3) Acute viral syndrome: Status: Acute Code(s): B34.9 - Viral infection, unspecified (4) Neutropenia: Status: Acute Code(s): D70.9 - Neutropenia, unspecified (5) Chronic hyponatremia: Status: Chronic Code(s): E87.1 - Hypo-osmolality and hyponatremia (6) Encephalopathy: Status: Acute Code(s): G93.40 - Encephalopathy, unspecified (7) Essential hypertension: Status: Chronic Code(s): I10 - Essential (primary) hypertension (8) Cardiomyopathy: Status: Acute Code(s): I42.9 - Cardiomyopathy, unspecified Plan: Discharge diagnoses #1 acute encephalopathy secondary to viremia (acute viral syndrome)-exact etiology unclear #2 essential hypertension #3 acute debility #4 hyponatremia #5 SIADH (syndrome of inappropriate ADH production) #6 leukopenia-etiology unclear #7 thrombocytopenia-etiology unclear #8 elevated liver enzymes-etiology unclear #9 cardiomyopathy-etiology unclear Medications at Discharge Home Medications montelukast 10 mg tablet 10 mg PO QHS 12/03/18 triamcinolone acetonide 55 mcg nasal spray aerosol 1 spray INTRANASAL DAILY PRN 12/03/18 albuterol sulfate 90 mcg/actuation aerosol inhaler 2 puff INHALATION Q4H PRN #18 g 09/21/19 fluticasone 113 mcg-salmeterol 14 mcg/actuation breath activated powdr 1 inh INHALATION BID #1 ea 02/29/20 amlodipine 5 mg PO DAILY 1 Days #1 tab 12/18/20 aspirin 81 mg PO BREAKFAST #1 tab 12/18/20 carvedilol 3.125 mg PO BID #1 tab 12/18/20 lisinopril 5 mg PO DAILY #1 tab 12/18/20 lorazepam 0.5 mg PO QHS #5 tab 12/18/20 nystatin-triamcinolone 1 applic TOPICAL BID #15 g 12/18/20 sodium chloride 1 g PO BID #1 tab 12/18/20 Hospital Course Procedures 2-D Echocardiogram and - (Lumbar puncture) Summary of Care Provided Minutes Spent on Discharge: 32 Hospital Course: This 80-year-old white male was seen in the emergency room at [facility] with complaints of generalized weakness, patient's brought the patient in for evaluation and stated that the patient had been more somnolent at home than usual. His stated that he falls frequently at home but denies any specific injury. Work-up in the emergency room included a CT of the brain which showed chronic involutional and ischemic changes of the brain, labs revealed a low sodium at 130, and CBC showed him to be neutropenic with a white blood cell count of 1.5. Patient's chest x-ray was unremarkable, on examination patient appeared to be confused but was not agitated. Patient was admitted to [place] [address], additional labs were obtained which indicated the patient probably had SIADH-it was noted that the patient's serum osmolality was low. Patient's labs were monitored, he was seen in consultation by nephrology, and he was seen in consultation by neurology via teleneurology as well as infectious diseases. A spinal tap was performed to rule out infection, cultures of the spinal fluid did not grow out any organisms and there were no white blood cells in the spinal fluid indicating no evidence of encephalitis or meningitis. Echocardiogram showed a reduced ejection fraction of 44%. Patient was seen by PT and OT, requested inpatient [facility] at the time of discharge. On 12/18/2020, patient was seen and examined: On examination he appeared frail and exhibited confusion. Vital signs as documented. Skin warm and dry and without overt rashes. Neck without JVD, neck was supple, trachea midline, thyroid was normal. Lungs clear bilaterally, normal air movement was noted. Heart exam notable for regular rhythm, normal sounds and absence of murmurs, rubs or gallops. Abdomen unremarkable and without evidence of organomegaly, masses, or abdominal aortic enlargement. Bowel sounds are present, abdomen is not distended. Extremities nonedematous, no cyanosis was noted, no clubbing was noted. Neuro: Cranial nerves II through XII are grossly intact, no focal motor deficits were noted, sensation to light touch and pinprick intact, motor exam 5/5 throughout. Psych: Patient is alert but confused, he is extremely hard of hearing On 12/10/2020, patient was discharged to a custodial facility for further care, I discussed his medical care with the attending physician at the retirement-Dr. Calhoun. Weight / BMI Weight Weight: 59.6 kg Body Mass Index (BMI) 22.5 ABG / Lab / Microbiology Data Result Diagrams: 12/18/20 06:50 12/18/20 06:50 Microbiology: Microbiology 12/13/20 20:36 Blood Culture (Wb) - Anticubital Left Blood Culture - Final No growth in 5 days. 12/13/20 20:29 Blood Culture (Wb) - Anticubital Right Blood Culture - Final No growth in 5 days. 12/18/20 15:15 Mucosa - Nasopharyngeal SARS-CoV-2 Antigen (Rapid) - Final 12/14/20 14:39 Csf, Spinal Fluid Gram Stain - Final 12/14/20 14:39 Csf, Spinal Fluid CSF Culture - Final No growth in 72 hours. 12/11/20 19:55 Mucosa - Nose SARS-CoV-2 Antigen (Rapid) - Final Meaningful Use Info Meaningful Use Diagnoses (Choose all that apply): None applicable Discharge Plan Admission Admit Date/Time: 12/12/20 16:08 Primary Reason for Your Visit: encephalopathy, generalized weakness Attending Provider: Daniel Aguilar Primary Care Provider: Jamie Yang Consulting Providers: Prasanna Franklin ; Finn Enamorado Discharge Orders/Prescriptions Prescriptions: New amlodipine 5 mg Tablet 5 mg PO DAILY 1 Days Qty: 1 RF: 0 aspirin 81 mg Tablet,Delayed Release (Dr/Ec) 81 mg PO BREAKFAST Qty: 1 RF: 0 sodium chloride 1 gram Tablet 1 g PO BID Qty: 1 RF: 0 carvedilol 3.125 mg Tablet 3.125 mg PO BID Qty: 1 RF: 0 lorazepam 0.5 mg Tablet 0.5 mg PO QHS Qty: 5 RF: 0 nystatin-triamcinolone 100,000-0.1 unit/g-% cream 1 applic topical BID Qty: 15 RF: 0 lisinopril 5 mg tablet 5 mg PO DAILY Qty: 1 RF: 0 Continued triamcinolone acetonide [Nasacort] 55 mcg aerosol,spray 1 spray INTRANASAL DAILY PRN (Reason: Allergic Symptoms) RF: 0 montelukast 10 mg tablet 10 mg PO QHS RF: 0 albuterol sulfate [Ventolin HFA] 90 mcg/actuation HFA aerosol inhaler 2 puff INHALATION Q4H PRN (Reason: shortness of breath or wheezing) Qty: 18 RF: 6 fluticasone propion-salmeterol [AirDuo RespiClick] 113-14 mcg/actuation aerosol powdr breath activated 1 inh INHALATION BID Qty: 1 RF: 6 Discontinued tramadol 50 mg tablet 50 mg PO Q8 PRN (Reason: Pain) RF: 0 meloxicam 7.5 mg tablet 7.5 mg PO DAILY RF: 0 Referrals / Follow Up: Jamie Yang MD [Primary Care Provider] - Disposition Disposition (needs filled in before D/C Order can be placed): Senior Living Facility Charges/Coding Visit Charges Inpatient E&M: 16483 Disch Hosp
[2020-12-27 20:08] LABS: CSF IgG Index 0.5 (0.0-0.7); HSV 1 By PCR Negative (Negative); IgG Serum 955 mg/dL (603-1613); IgG/Alb Ratio, CSF 0.14 (0.00-0.25); Myelin Basic Protein, MBP 8.4 ng/mL (0.0-6.0); Serum Albumin 3.6 g/dL (3.6-4.6)
[2020-12-27 21:25] LABS: CSF Albumin 28 mg/dL (15-55); CSF IgG 3.9 mg/dL (0.0-10.3); CSF:Serum Albumin Index 8 (0-8); Enterovirus By PCR Negative (Negative); HSV 2 By PCR Negative (Negative)
[2020-12-27 21:26] LABS: West Nile Virus Qual by PCR Negative (.)
== END 2020-12-18 19:40 | disposition skilled nursing facility (03) | DRG 70 ==
LOC: ED 19:14 → MS3 20:20
PROVIDERS: Internal Medicine; Internal Medicine Infectious Disease; Nurse Practitioner Family; Radiology Diagnostic Radiology; Emergency Provider Emergency Medicine; PCP Family Medicine; Visit Provider Internal Medicine
DX: G93.40 Encephalopathy, unspecified (principal); E43 Unspecified severe protein-calorie malnutrition; E22.2 Syndrome of inappropriate secretion of antidiuretic hormone; I50.22 Chronic systolic (congestive) heart failure; I42.9 Cardiomyopathy, unspecified; N17.9 Acute kidney failure, unspecified; D70.9 Neutropenia, unspecified; B34.9 Viral infection, unspecified; I11.0 Hypertensive heart disease with heart failure; G89.29 Other chronic pain; M25.511 Pain in right shoulder; J45.909 Unspecified asthma, uncomplicated; R74.01 Elevation of levels of liver transaminase levels; I65.23 Occlusion and stenosis of bilateral carotid arteries; I34.0 Nonrheumatic mitral (valve) insufficiency; D69.6 Thrombocytopenia, unspecified; R29.6 Repeated falls; H91.90 Unspecified hearing loss, unspecified ear; F03.90 Unspecified dementia, unspecified severity, without behavioral disturbance, psychotic disturbance, mood disturbance, and anxiety; Z79.899 Other long term (current) drug therapy; W19.XXXA Unspecified fall, initial encounter; Z68.22 Body mass index [BMI] 22.0-22.9, adult
CPT/HCPCS: 36415; 62328; 70450; 70470; 70496; 70498; 71045; 71250; 76705; 77003; 80048; 80053; 80061; 80076; 81001; 82040; 82042; 82140; 82533; 82607; 82746; 82784; 82945; 82962; 83873; 83916; 83930; 83935; 84157; 84295; 84300; 84443; 84484; 84550; 85025; 85610; 85730; 86780; 87040; 87070; 87205; 87426; 87498; 87529; 87798; 88108; 88313; 89050; 89051; 92507; 92523; 93005; 93306; 94640; 95819; 97162; 97166; 97530; 97535; 99156; 99285; J7030; Q9957; Q9967; A4216; J3490

== ENCOUNTER 2020-12-28 22:09 | Emergency (ER) | payer MEDICARE, OTHER, SELFPAY ==
[2020-12-28 22:10] VITALS: BP 153/91; PULSE 94; RESP 14; TEMP 37.2; O2SAT 96; BMI 22.8
--- NOTE | 2020-12-28 22:17 | ED.RN ---
NO MRI, COCHLEAR IMPLANT
--- NOTE | 2020-12-28 22:42 | CT_ITS ---
STUDY: CT BRAIN WITHOUT CONTRAST REASON FOR EXAM: Male, 80 years old. trauma RADIATION DOSAGE (If Supplied By Facility): CTDIvol = ( 44.99 ) mGy, DLP = ( 897.35 ) mGycm TECHNIQUE: Transaxial CT imaging of the brain was performed without administration of intravenous contrast material. Individualized dose optimization techniques were used for this CT. COMPARISON: 12/13/2020 FINDINGS: Normal soft tissue structures. Normal calvarium. There is moderate cerebral atrophy with widening of the extra-axial spaces and ventricular dilatation. There are areas of decreased attenuation within the white matter tracts of the supratentorial brain, consistent with microvascular disease changes. Normal basal ganglia and thalami. Normal brainstem. There is mild cerebellar atrophy. There is no intracranial hemorrhage. There are no findings of an acute ischemic infarction. Acute air-fluid level with probable hemorrhagic contents in the right maxillary sinus. Right maxillary sinus fracture CT/Brain/Head without Contrast IMPRESSION: No acute intracranial pathology. Right-sided facial bone fracture. Dedicated CT facial bones recommended to further evaluate. Electronically Signed: Adi Pinto DO at 23:28 EDT Tel , Service support ,
--- NOTE | 2020-12-28 22:42 | EKG12_ITS ---
Test Reason : FALL Blood Pressure : / mmHG Vent. Rate : 092 BPM Atrial Rate : 092 BPM P-R Int : 188 ms QRS Dur : 088 ms QT Int : 352 ms P-R-T Axes : 058 006 046 degrees QTc Int : 435 ms Normal sinus rhythm Normal ECG Confirmed by SHEY MAY MD ([id number]), manager performance COLLIN ANDRES ([id number]) on 01/01/2021 1:07:58 PM Referred By: NOE Confirmed By:SHEY MAY MD
--- NOTE | 2020-12-28 22:43 | ED.VIS.FALL ---
HPI HPI - Fall History of Present Illness Chief Complaint: Fall Informant: patient and spouse/S.O. Occured/Mechanism Occurred: Today Narrative Narrative: Demented patient fell at skilled nursing. states she was not there, and he is not supposed to be able to get out of bed but apparently he did resulting in a fall and injury to his forehead with a laceration. Patient is significantly demented and cannot provide any history. He does not complain of pain. He is on baby aspirin daily no anticoagulation. PFSH PFSH Medical History Bilateral carotid artery stenosis Cochlear implant in place Essential hypertension Leukopenia Non-rheumatic aortic regurgitation Non-rheumatic mitral regurgitation Vasovagal syncope Home Medications montelukast 10 mg tablet 10 mg PO QHS 12/03/18 [History Last Taken 12/10/20] triamcinolone acetonide 55 mcg nasal spray aerosol 1 spray INTRANASAL DAILY PRN 12/03/18 [History Last Taken Unknown] albuterol sulfate 90 mcg/actuation aerosol inhaler 2 puff INHALATION Q4H PRN #18 g 09/21/19 [Rx Last Taken 12/10/20] fluticasone 113 mcg-salmeterol 14 mcg/actuation breath activated powdr 1 inh INHALATION BID #1 ea 02/29/20 [Rx Last Taken 12/10/20] amlodipine 5 mg PO DAILY 1 Days #1 tab 12/18/20 [Rx Last Taken Unknown] aspirin 81 mg PO BREAKFAST #1 tab 12/18/20 [Rx Last Taken Unknown] carvedilol 3.125 mg PO BID #1 tab 12/18/20 [Rx Last Taken Unknown] lisinopril 5 mg PO DAILY #1 tab 12/18/20 [Rx Last Taken Unknown] lorazepam 0.5 mg PO QHS #5 tab 12/18/20 [Rx Last Taken Unknown] nystatin-triamcinolone 1 applic TOPICAL BID #15 g 12/18/20 [Rx Last Taken Unknown] sodium chloride 1 g PO BID #1 tab 12/18/20 [Rx Last Taken Unknown] Allergy/AdvReac Type Severity Reaction Status Date / Time No Known Allergies Allergy Verified 12/28/20 22:10 Family History Mother Cancer ovarian Social History Smoking Status: Never smoker alcohol intake: never substance use type: does not use caffeine: Yes Type: tea Number of servings: 1 what type of physical activity do you participate in: none seatbelt use: always do you feel safe at home: Yes ROS ROS ED Review of Systems ROS Unobtainable: due to mental status EXAM Physical Exam Const Vital Signs: 12/28/20 22:10 12/28/20 22:20 12/29/20 02:16 Temperature 99 F 98.4 F Temperature Source Temporal Temporal Pulse Rate 94 99 Respiratory Rate 14 16 Respiratory Effort Normal Non-Labored Respiratory Depth Normal Respiratory Pattern Normal Blood Pressure 153/91 H 128/49 H Blood Pressure Mean 111 75 Pulse Ox 96 99 Oxygen Delivery Method Room Air Room Air Positive well nourished and well developed General Appearance ED: well developed and NAD HEENT Reports TM's clear and nasal mucous membranes and turbinates normal HEENT Narrative: Mild tenderness and a Y-shaped full-thickness clean appearing laceration to the mid forehead without crepitance or depression. No active bleeding. trauma Face and Sinus: Negative for facial tenderness Tympanic Membrane ED: Yes TM's clear Eyes PERRL and EOMs intact bilaterally Visual Acuity: other Other Details: no entrapment or pain with extraocular movements Neck full ROM and supple General: Negative for tenderness Chest Wall inspection of chest normal and palpation of chest normal Chest: symmetrical chest wall rise; Negative for crepitus or tenderness Resp normal respiratory effort and clear to auscultation bilaterally Percussion: other equal BS bilat Cardio no murmurs Rate: regular rate Rhythm: regular rhythm GI normal to inspection, nondistended, normoactive bowel sounds, soft to palpation and non-tender Back/Spine normal ROM Cervical Spine: Negative for cervical spine tenderness Thoracic Spine / Upper Back: Negative for thoracic spinal tenderness Lumbar Spine / Lower Back: Negative for lumbar spinal tenderness Extremity normal to inspection and full ROM General Extremety ED: Negative for tenderness Neuro CN's II-XII intact bilaterally, moves all extremities, no focal motor deficits and no sensory deficits noted Sensorium / Orientation: awake and alert Psych mental status grossly normal and thought process normal Skin Skin Narrative: Y-shaped laceration mid forehead as described above, total distance approximately 6 cm Lesions: no lesions Rashes: no rashes MDM MDM MDM Narrative Medical decision making narrative: CT head shows no acute intracranial hemorrhage but does show right maxillary sinus fracture, they recommended a full CT of the face which was done and saw no other fractures. No prophylactic antibiotics are indicated for this. When I palpated his midface he had no pain or instability. He has full range of motion of the right hip, but he was a little tender at the right greater trochanter and then the tissues more proximal to this around the piriformis. X-ray showed no acute fracture. states he does not walk without assistance and she goes to the skilled nursing to be with him a lot to prevent him from getting up on his own which she suspects he did tonight. His work-up shows nothing acute. He is a little more anemic but does not necessarily have a high BUN to suggest an upper GI bleed. His vital signs remained stable and normal. He can be referred to ENT as an outpatient regarding his right maxilla facial fractures which are unlikely to be operative. No other fracture seen, he was holding his hands behind his head although he complained of some right shoulder pain his states he has that chronically and I think it might be due to cervical disc disease. Discharge back to skilled nursing, sutures should be removed in 5-7 days. Lab Data Attestation: I reviewed the patient's lab results. Labs: Laboratory Results - last 24 hr 12/28/20 12/28/20 12/28/20 22:10 22:10 22:50 WBC 1.3 L* RBC 3.06 L Hgb 10.5 L Hct 29.4 L MCV 96.1 H MCH 34.3 H MCHC 35.7 RDW Std Deviation 49.1 H RDW Coeff of Cris 13.9 Plt Count 217 MPV 8.9 Immature Gran % (Auto) 0.800 Neut % (Auto) 26.8 L Lymph % (Auto) 41.7 H Ida % (Auto) 29.9 H Eos % (Auto) 0.8 Baso % (Auto) 0.0 Absolute Neuts (auto) 0.3 L Absolute Lymphs (auto) 0.53 L Nucleated RBC % 0 Diff Path Review May foll Platelet Estimate ADEQUATE Sodium 131 L Potassium 4.2 Chloride 100 Carbon Dioxide 25.0 Anion Gap 6 BUN 27 H Creatinine 1.22 Estim Creat Clear Calc 40.61 Est GFR (MDRD) Af Amer 73 Est GFR (MDRD) Non-Af 60 BUN/Creatinine Ratio 22.1 H Glucose 116 H Calcium 7.7 L Urine Color Yellow Urine Clarity Sl. Cloudy Urine pH 6.0 Ur Specific [place] 1.020 Urine Protein 30 H Urine Glucose (UA) Normal Urine Ketones 5 H Urine Occult Blood 25 H Urine Nitrite Negative Urine Bilirubin Negative Urine Urobilinogen Normal Ur Leukocyte Esterase Negative Urine RBC 0-5 SEEN Urine WBC 0 SEEN Ur Squamous Epith Cells 0-5 SEEN Urine Bacteria 0 SEEN Urine Mucus 0 SEEN Radiography Diagnostic Testing: Radiology Impression Brain CT 12/28/20 22:42 IMPRESSION: No acute intracranial pathology. Right-sided facial bone fracture. Dedicated CT facial bones recommended to further evaluate. Electronically Signed: Adi Pinto DO at 23:28 EDT Tel , Service support , Hip/Pelvis X-Ray 12/28/20 23:00 IMPRESSION: Normal x-ray examination of the pelvis and hip. Electronically Signed: Adi Pinto DO at 23:29 EDT Tel , Service support , Facial/Sinus 12/28/20 23:47 IMPRESSION: Maxillary sinus wall fractures as detailed above with internal blood products and air. Right periorbital and right facial swelling with hematoma. No additional facial bone fractures are noted Electronically Signed: Adi Pinto DO at 0:32 EDT Tel , Service support , EKG Initial EKG: Attestation: I personally reviewed and interpreted this EKG as follows: Interpretation: Sinus Rhythm and No Acute Injury Pattern Procedures Lacerations forehead: Length: 6 cm Depth: Sub Q Shape: Stellate Prep: Sterile Conditions and Chlorhexadine Laceration repair: Irrigated, Lidocaine with epi (3.5cc SQ and topically LET) and Local Number of Sutures/Sharon: 8 Suture Information: Ethilon, Simple and 6-0 Discharge Plan Triage Chief Complaint: Fall ED Provider: Amy,Biju Dx/Rx/DC Orders Clinical Impression: Fall, Forehead laceration, Fracture of right side of maxilla Instructions: ED Facial Fracture, ED Laceration: All Closures Prescriptions: No Action triamcinolone acetonide [Nasacort] 55 mcg aerosol,spray 1 spray INTRANASAL DAILY PRN (Reason: Allergic Symptoms) RF: 0 montelukast 10 mg tablet 10 mg PO QHS RF: 0 albuterol sulfate [Ventolin HFA] 90 mcg/actuation HFA aerosol inhaler 2 puff INHALATION Q4H PRN (Reason: shortness of breath or wheezing) Qty: 18 RF: 6 fluticasone propion-salmeterol [AirDuo RespiClick] 113-14 mcg/actuation aerosol powdr breath activated 1 inh INHALATION BID Qty: 1 RF: 6 amlodipine 5 mg Tablet 5 mg PO DAILY 1 Days Qty: 1 RF: 0 aspirin 81 mg Tablet,Delayed Release (Dr/Ec) 81 mg PO BREAKFAST Qty: 1 RF: 0 sodium chloride 1 gram Tablet 1 g PO BID Qty: 1 RF: 0 carvedilol 3.125 mg Tablet 3.125 mg PO BID Qty: 1 RF: 0 lorazepam 0.5 mg Tablet 0.5 mg PO QHS Qty: 5 RF: 0 nystatin-triamcinolone 100,000-0.1 unit/g-% cream 1 applic topical BID Qty: 15 RF: 0 lisinopril 5 mg tablet 5 mg PO DAILY Qty: 1 RF: 0 Primary Care Provider: Jamie Yang Referrals: Jamie Yang MD [Primary Care Provider] - 7 Days for suture removal Disposition Disposition: Home, Self Care
[2020-12-28 22:57] LABS: Bacteria 0 SEEN /hpf (None Seen); Mucous, Urine 0 SEEN /hpf (<or=2+); White Blood Cells 0 SEEN /hpf (0-5)
--- NOTE | 2020-12-28 23:00 | RAD_ITS ---
STUDY: X-RAY - PELVIS AND RIGHT HIP REASON FOR EXAM: Male, 80 years old. fall TECHNIQUE: 3 views of the pelvis and hip. COMPARISON: None. FINDINGS: There is a non-specific bowel gas pattern. Normal visualized soft tissue structures. Normal bilateral iliac wings, sacroiliac joints and visualized sacrum. Normal bilateral superior and inferior pubic rami. Normal pubic symphysis. Normal bilateral ischial tuberosities. Normal visualized femoral head. Normal acetabulum. Normal hip joint. RAD/HIP, UNI W/ Pelvis 2-3 Views IMPRESSION: Normal x-ray examination of the pelvis and hip. Electronically Signed: Adi Pinto DO at 23:29 EDT Tel , Service support ,
[2020-12-28 23:02] LABS: Color, Urine Yellow (Yellow); Glucose, Dipstick Normal (Normal); Ketone-Dipstick 5 mg/dl (Negative); Leukocyte Esterase-Dipstick Negative /ul (Negative); Nitrite-Dipstick Negative (Negative); Occult Blood-Urine 25 /ul (Negative); Protein-Dipstick 30 mg/dl (Negative); Urine Bilirubin Dipstick Negative (Negative); Urine Clarity Sl. Cloudy (Clear); Urine Urobilinogen Normal (Normal)
[2020-12-28 23:02] LABS: Absolute Lymphocyte Count 0.53 X10^3/uL (0.83-4.51); Absolute Neutrophil Count 0.3 X10^3/uL (2.0-7.7); Anion Gap 6 (5-15); BUN 27 mg/dL (7-18); BUN/Creat Ratio 22.1 RATIO (10-20); Calcium,Total 7.7 mg/dL (8.5-10.1); Chloride 100 mmol/L (98-107); Creatinine, Serum 1.22 mg/dL (0.70-1.30); EST Glomerular Filtration Rate 60 mL/min (>60); Eosinophil# 0.01 X10^3/uL; Eosinophils% 0.8 % (0-5); Est Glom Filt Rate - Afr Amer 73 mL/min (>60); Estimated Creatinine Clearance 40.61 ml/min; Glucose 116 mg/dL (74-106); Hematocrit 29.4 % (40-54); Hemoglobin 10.5 g/dL (13.0-16.5); Lymphocyte # 0.53 X10^3/ul (0.83-4.51); Lymphocyte % 41.7 % (19-41); Mean Corp Hgb Conc 35.7 g/dL (32-36); Mean Corpuscular Hgb 34.3 pg (27.0-32.0); Mean Corpuscular Volume 96.1 fL (80-94); Mean Platelet Vol. 8.9 fl (6.2-12.0); Monocyte# 0.38 X10^3/uL; Monocyte% 29.9 % (0-10); NRBC Flagged by Analyzer 0 % (0-5); Neutrophil # 0.34 X10^3/uL (2.7-7.7); Neutrophil % 26.8 % (47-70); POSITIVE COUNT YES; POSITIVE DIFFERENTIAL YES; POSITIVE MORPHOLOGY YES; Platelet Count 217 K/mm3 (150-450); Potassium 4.2 mmol/L (3.5-5.1); RBC Distribution Width CV 13.9 % (11.6-14.6); RBC Distribution Width SD 49.1 fl (35.1-43.9); Red Blood Count 3.06 M/mm3 (4.6-6.2); Sodium Level 131 mmol/L (136-145)
[2020-12-28] MEDS: Lidocaine/Epi/Tetracaine 50 ML 1 APPLIC TOPICAL (23:09)
[2020-12-28 23:11] LABS: White Blood Count 1.3 K/mm3 (4.4-11.0)
[2020-12-28 23:12] LABS: Red Blood Cells-Urine 0-5 SEEN /hpf (0-5); Squamous Epithelial Cells - UA 0-5 SEEN /hpf (0-5)
[2020-12-28 23:38] LABS: Differential Indicated SCAN CRITERIA MET; Platelet Estimate ADEQUATE (ADEQ)
--- NOTE | 2020-12-28 23:47 | CT_ITS ---
STUDY: CT FACIAL BONES WITHOUT CONTRAST REASON FOR EXAM: Male, 80 years old. fall, fracture RADIATION DOSAGE (If Supplied By Facility): CTDIvol = ( 29.38 ) mGy, DLP = ( 620.921 ) mGycm TECHNIQUE: The patient was scanned in a multi detector CT scanner. Sagittal and coronal images were reconstructed. Individualized dose optimization techniques were used for this CT. COMPARISON: None. FINDINGS: Right periorbital and right-sided facial swelling and edema with hematoma. Normal orbital monreal and orbital contents. Normal nasal bones and anterior nasal spine. Acute comminuted fracture of the right anterior and posterior and medial monreal of the maxillary sinus with blood products and air within the right maxillary sinus. No additional facial bone fractures are noted. Normal visualized paranasal sinuses. CT/Sinus/Facial Bone IMPRESSION: Maxillary sinus wall fractures as detailed above with internal blood products and air. Right periorbital and right facial swelling with hematoma. No additional facial bone fractures are noted Electronically Signed: Adi Pinto DO at 0:32 EDT Tel , Service support ,
[2020-12-29 02:16] VITALS: BP 128/49; PULSE 99; RESP 16; TEMP 36.9; O2SAT 99
[2020-12-29] MEDS: Lidocaine 1% /Epi 1:100 (20ml) 20 ML Vial INFILT (03:14)
[2020-12-29 03:23] VITALS: RESP 18
--- NOTE | 2020-12-29 03:25 | ED.RN ---
spoke [facility] for update.
[2020-12-29 10:39] LABS: Pathologist Review Reviewed
--- NOTE | 2021-01-20 23:19 | ED.RN ---
CHART OPENED FOR [facility] REPORT IDENTIFICATION AND LABELING
== END 2020-12-29 03:38 | disposition home or self-care (01) ==
PROVIDERS: Emergency Provider Emergency Medicine; PCP Family Medicine
DX: S01.81XA Laceration without foreign body of other part of head, initial encounter (principal); S02.40CA Maxillary fracture, right side, initial encounter for closed fracture; W19.XXXA Unspecified fall, initial encounter
CPT/HCPCS: 12013; 70450; 70486; 73502; 80048; 81001; 85025; 93005; 99285

== ENCOUNTER 2021-01-11 10:14 | Inpatient (IN) | payer MEDICARE, OTHER, SELFPAY ==
[2021-01-02 09:57] VITALS: BMI 20.2
[2021-01-11] VITALS (20 sets, daily range): BP systolic 104–148; BP diastolic 38–107; PULSE 84–112; RESP 18–27; TEMP 36.6–37.9; O2SAT 94–100; BMI 18.3; BMI 17.8
--- NOTE | 2021-01-11 10:33 | CT_ITS ---
EXAM: CT HEAD WITHOUT INTRAVENOUS CONTRAST : 1940 CLINICAL INDICATION: trauma TECHNIQUE: Multiple axial images were obtained of the head without intravenous contrast. This CT exam was performed using one or more of the following dose reduction techniques: automated exposure control, adjustment of the mA and/or kV according to patient size, and/or use of iterative reconstruction technique. This report was created using [employer] report generation technology. CONTRAST: Prominent scalp swelling noted along the forehead. COMPARISON: December 28, 2020 FINDINGS: ARTIFACTS: Considerable artifacts related to the left cochlear implant and patient motion. BRAIN AND EXTRA-AXIAL SPACES: Prominence of the cortical sulci and ventricles related to volume loss change. No intra- or extra-axial hemorrhage. No evidence of acute infarct. No intracranial mass or mass effect. There is preservation of the kolb/white matter interface. Posterior fossa structures are unremarkable. Basal cisterns are patent. BONES/JOINTS: No discrete lytic or blastic abnormalities. SINUSES: Right maxillary fracture again seen with resolving right maxillary sinus hematoma. MASTOID AIR CELLS: Postoperative changes of the left temporal bone again seen. Partially opacified left mastoid air cells again noted.. ORBITS: Visualized globes, extraocular muscles, optic nerves and retrobulbar fat appear unremarkable. CT/Brain/Head without Contrast IMPRESSION: No evidence of acute intracranial injury. Individualized dose optimization techniques were used for this CT. at 1215 Reported and signed by: Jesus Rae MD Electronically Signed: Jesus Rae MD at 12:13 EDT Tel , Service support ,
--- NOTE | 2021-01-11 10:33 | CT_ITS ---
EXAM: CT MAXILLOFACIAL WITHOUT INTRAVENOUS CONTRAST : 1940 CLINICAL INDICATION: trauma TECHNIQUE: Helically acquired images were obtained of the face without intravenous contrast. This CT exam was performed using one or more of the following dose reduction techniques: automated exposure control, adjustment of the mA and/or kV according to patient size, and/or use of iterative reconstruction technique. This report was created using [employer] report generation technology. COMPARISON: December 29, 2020 FINDINGS: BONES/JOINTS: No change in the fractures involving the right maxilla and the right zygomatical frontal suture. SOFT TISSUES: Contusional changes of the soft tissues of the right side of the face have improved. New scalp swelling noted along the forehead. No discrete fluid collections. ORBITS: Unremarkable. Both globes are unremarkable. Extraocular muscles are normal. Retrobulbar fat appears unremarkable. SINUSES: Resolving right maxillary sinus hematoma. Mucosal thickening noted within the paranasal sinuses. MASTOID AIR CELLS: Partial opacification of the left mastoid sinus again noted as well as postoperative changes of left temporal bone. DENTAL: Patient is edentulous. CT/Sinus/Facial Bone IMPRESSION: 1. Right facial fractures again noted without interval change. 2. New frontal scalp swelling. 3. No new fractures. 4. Resolving right sinus hematoma. Individualized dose optimization techniques were used for this CT. at 1220 Reported and signed by: Jesus Rae MD Electronically Signed: Jesus Rae MD at 12:19 EDT Tel , Service support ,
--- NOTE | 2021-01-11 10:34 | RAD_ITS ---
History: fever EXAMINATION/TECHNIQUE: XR Chest 1 View: Portable COMPARISON: December 11, 2020 FINDINGS: LINES/DEVICES: None. LUNGS: No consolidation, edema or effusion. No pneumothorax. MEDIASTINUM AND CARDIOVASCULAR STRUCTURES: Cardiac silhouette not enlarged. Ectatic tortuous aorta again noted. BONES AND SOFT TISSUES: Unremarkable. RAD/Chest 1 View (Portable) IMPRESSION: No radiographic evidence of acute cardiopulmonary disease. No interval change. at 1229 Reported and signed by: Jesus Rae MD Electronically Signed: Jesus Rae MD at 12:28 EDT Tel , Service support ,
--- NOTE | 2021-01-11 10:34 | EKG12_ITS ---
Test Reason : ALTERED MENTAL STATU Blood Pressure : / mmHG Vent. Rate : 112 BPM Atrial Rate : 112 BPM P-R Int : 168 ms QRS Dur : 086 ms QT Int : 330 ms P-R-T Axes : 062 038 067 degrees QTc Int : 450 ms Sinus tachycardia with occasional Premature ventricular complexes Otherwise normal ECG Confirmed by DEMETRIA BOYER, SARATH ([id number]), editorial assistant COLLIN ANDRES ([id number]) on 01/15/2021 1:16:58 PM Referred By: JAYLA Confirmed By:SARATH AUGUSTIN MD
--- NOTE | 2021-01-11 10:35 | EX.ED.DYSGE1 ---
HPI History of Present Illness Chief Complaint: Mental Status Change Narrative Narrative: Patient arrives with mental status changes. He is in a ECF for chronic debility and dementia, he had a recent fall had a head injury he had sutures and these were recently removed. Apparently the was visiting this morning and he was not waking up easily, he was transported to the ED. I cannot get a history or review of systems from the patient. [facility] Medical History Bilateral carotid artery stenosis Cochlear implant in place Essential hypertension Leukopenia Non-rheumatic aortic regurgitation Non-rheumatic mitral regurgitation Vasovagal syncope Home Medications montelukast 10 mg tablet 10 mg PO QHS 12/03/18 [History Last Taken 12/10/20] albuterol sulfate 90 mcg/actuation aerosol inhaler 2 puff INHALATION Q4H PRN #18 g 09/21/19 [Rx Last Taken 12/10/20] fluticasone 113 mcg-salmeterol 14 mcg/actuation breath activated powdr 1 inh INHALATION BID #1 ea 02/29/20 [Rx Last Taken 12/10/20] aspirin 81 mg PO BREAKFAST #1 tab 12/18/20 [Rx Last Taken Unknown] carvedilol 3.125 mg PO BID #1 tab 12/18/20 [Rx Last Taken Unknown] lisinopril 5 mg PO DAILY #1 tab 12/18/20 [Rx Last Taken Unknown] nystatin-triamcinolone 1 applic TOPICAL BID #15 g 12/18/20 [Rx Last Taken Unknown] lorazepam 0.5 mg PO QHS PRN PRN 01/11/21 [History Last Taken Unknown] quetiapine [Seroquel] 12.5 mg PO QHS 01/11/21 [History Last Taken Unknown] sennosides [senna] 8.6 mg PO DAILY 01/11/21 [History Last Taken Unknown] sodium chloride 1 g PO BID 01/11/21 [History Last Taken Unknown] Allergy/AdvReac Type Severity Reaction Status Date / Time No Known Allergies Allergy Verified 01/11/21 10:21 Family History Mother Cancer ovarian Social History Smoking Status: Never smoker alcohol intake: never substance use type: does not use caffeine: Yes Type: tea Number of servings: 1 what type of physical activity do you participate in: none seatbelt use: always do you feel safe at home: Yes ROS ROS ED ROS Narrative Past medical history: Reviewed, includes neutropenia, cardiomegaly, viral syndrome, hyponatremia, debility, confusion, hypertension Medications: Reviewed Social history: Noncontributory Review of systems: Unable secondary to dementia and mental status changes EXAM Physical Exam Narrative Exam Narrative: Physical exam General: Patient appears chronically ill. He is somnolent but he is arousable. Head: Normocephalic, Atraumatic Eyes: Conjunctiva not pale, pupils are reactive bilaterally no conjunctivitis. ENT: Dry mucous membranes. He has a infraorbital contusion and an old forehead laceration with sutures have been removed clean dry and intact with slight edema but no obvious fluctuance or induration. Neck: Supple, Nontender, No lymphadenopathy Cardiovascular: Regular tachycardia no obvious murmurs Respiratory: Coarse bilateral breath sounds he does not appear in any respiratory distress Abdomen: Soft, Nontender, Nondistended : Normal external genitalia uncircumcised Back: Nontender, Normal Inspection. Negative for: CVA tenderness Extremities: Nontender, No edema Skin: Normal color, No rash Neurological: Somnolent but arousable, he is oriented to name only when I arouse him. Otherwise he has no focal deficit. Const Vital Signs: 01/11/21 10:16 01/11/21 10:22 01/11/21 11:27 Temperature 99.7 F H 99.7 F H 99.6 F H Temperature Source Temporal Temporal Temporal Pulse Rate 112 H 112 H 110 H Respiratory Rate 22 H 22 H 20 H Blood Pressure 129/38 H 129/38 H 144/63 H Blood Pressure Mean 68 68 90 Pulse Ox 94 94 94 Oxygen Delivery Method Room Air Room Air Room Air MDM MDM MDM Narrative Medical decision making narrative: Patient's work-up is consistent with sepsis, he has a urinary tract infection although he does have swelling of the forehead region. On reexamination that region dehisced and pus was expectorated. I finished expectorating all the pus, we will culture and start antibiotics for both the soft tissue infection and a urinary tract infection I will admit. He does meet criteria for sepsis. Lab Data Labs: Laboratory Results - last 24 hr 01/11/21 01/11/21 01/11/21 10:00 10:00 10:00 WBC 2.4 L RBC 3.74 L Hgb 12.9 L Hct 37.3 L MCV 99.7 H MCH 34.5 H MCHC 34.6 RDW Std Deviation 55.3 H RDW Coeff of Cris 15.6 H Plt Count 318 MPV 9.0 Immature Gran % (Auto) 1.700 H Neut % (Auto) 55.0 Lymph % (Auto) 35.3 [place] % (Auto) 8.0 Eos % (Auto) 0.0 Baso % (Auto) 0.0 Absolute Neuts (auto) 1.3 L Absolute Lymphs (auto) 0.84 Nucleated RBC % 0 PT 14.0 INR 1.1 APTT 32.3 Sodium 135 L Potassium 3.9 Chloride 101 Carbon Dioxide 25.0 Anion Gap 9 BUN 28 H Creatinine 1.51 H Estim Creat Clear Calc 30.01 Est GFR (MDRD) Af Amer 57 L Est GFR (MDRD) Non-Af 47 L BUN/Creatinine Ratio 18.5 Glucose 111 H Lactic Acid Calcium 8.7 Total Bilirubin 0.60 AST 105 H ALT 81 H Alkaline Phosphatase 81 Total Protein 8.1 Albumin 3.7 Globulin 4.4 H Albumin/Globulin Ratio 0.8 L Urine Color Urine Clarity Urine pH Ur Specific [place] Urine Protein Urine Glucose (UA) Urine Ketones Urine Occult Blood Urine Nitrite Urine Bilirubin Urine Urobilinogen Ur Leukocyte Esterase Urine RBC Urine WBC Ur Squamous Epith Cells Urine Bacteria Hyaline Casts Urine Mucus 01/11/21 01/11/21 01/11/21 11:20 12:05 13:15 WBC RBC Hgb Hct MCV MCH MCHC RDW Std Deviation RDW Coeff of Cris Plt Count MPV Immature Gran % (Auto) Neut % (Auto) Lymph % (Auto) [place] % (Auto) Eos % (Auto) Baso % (Auto) Absolute Neuts (auto) Absolute Lymphs (auto) Nucleated RBC % PT INR APTT Sodium Potassium Chloride Carbon Dioxide Anion Gap BUN Creatinine Estim Creat Clear Calc Est GFR (MDRD) Af Amer Est GFR (MDRD) Non-Af BUN/Creatinine Ratio Glucose Lactic Acid Cancelled 2.0 Calcium Total Bilirubin AST ALT Alkaline Phosphatase Total Protein Albumin Globulin Albumin/Globulin Ratio Urine Color Yellow Urine Clarity Clear Urine pH 5.0 Ur Specific [place] 1.025 Urine Protein 100 H Urine Glucose (UA) Normal Urine Ketones Negative Urine Occult Blood 25 H Urine Nitrite Negative Urine Bilirubin Negative Urine Urobilinogen Normal Ur Leukocyte Esterase Negative Urine RBC 0-5 SEEN Urine WBC 0 SEEN Ur Squamous Epith Cells 0-5 SEEN Urine Bacteria 1+ Hyaline Casts 0-5 SEEN Urine Mucus RARE Radiography Diagnostic Testing: Radiology Impression Brain CT 01/11/21 10:33 IMPRESSION: No evidence of acute intracranial injury. Individualized dose optimization techniques were used for this CT. at 1215 Reported and signed by: Jesus Rae MD Electronically Signed: Jesus Rae MD at 12:13 EDT Tel , Service support , Facial/Sinus 01/11/21 10:33 IMPRESSION: 1. Right facial fractures again noted without interval change. 2. New frontal scalp swelling. 3. No new fractures. 4. Resolving right sinus hematoma. Individualized dose optimization techniques were used for this CT. at 1220 Reported and signed by: Jesus Rae MD Electronically Signed: Jesus Rae MD at 12:19 EDT Tel , Service support , Chest X-Ray 01/11/21 10:34 IMPRESSION: No radiographic evidence of acute cardiopulmonary disease. No interval change. at 1229 Reported and signed by: Jesus Rae MD Electronically Signed: Jesus Rae MD at 12:28 EDT Tel , Service support , Critical Care Time Critical care time (excluding procedures): 30-74 minutes and - (Critical care time 35 minutes. This includes time spent at bedside, time spent with consultants, and documentation and treatment.) Discharge Plan Triage Chief Complaint: Mental Status Change ED Provider: Farhat Tompkins Dx/Rx/DC Orders Prescriptions: No Action montelukast 10 mg tablet 10 mg PO QHS RF: 0 albuterol sulfate [Ventolin HFA] 90 mcg/actuation HFA aerosol inhaler 2 puff INHALATION Q4H PRN (Reason: shortness of breath or wheezing) Qty: 18 RF: 6 fluticasone propion-salmeterol [AirDuo RespiClick] 113-14 mcg/actuation aerosol powdr breath activated 1 inh INHALATION BID Qty: 1 RF: 6 aspirin 81 mg Tablet,Delayed Release (Dr/Ec) 81 mg PO BREAKFAST Qty: 1 RF: 0 carvedilol 3.125 mg Tablet 3.125 mg PO BID Qty: 1 RF: 0 nystatin-triamcinolone 100,000-0.1 unit/g-% cream 1 applic topical BID Qty: 15 RF: 0 lisinopril 5 mg tablet 5 mg PO DAILY Qty: 1 RF: 0 quetiapine [Seroquel] 25 mg Tablet 12.5 mg PO QHS RF: 0 sennosides [senna] 8.6 mg Tablet 8.6 mg PO DAILY RF: 0 sodium chloride 1 gram tablet 1 g PO BID RF: 0 lorazepam 0.5 mg tablet 0.5 mg PO QHS PRN PRN (Reason: if seroquel not working) RF: 0 Primary Care Provider: Jamie Yang
[2021-01-11 11:09] LABS: Absolute Lymphocyte Count 0.84 X10^3/uL (0.83-4.51); Absolute Neutrophil Count 1.3 X10^3/uL (2.0-7.7); Hematocrit 37.3 % (40-54); Hemoglobin 12.9 g/dL (13.0-16.5); Lymphocyte # 0.84 X10^3/ul (0.83-4.51); Lymphocyte % 35.3 % (19-41); Mean Corp Hgb Conc 34.6 g/dL (32-36); Mean Corpuscular Hgb 34.5 pg (27.0-32.0); Mean Corpuscular Volume 99.7 fL (80-94); Monocyte# 0.19 X10^3/uL; NRBC Flagged by Analyzer 0 % (0-5); Neutrophil # 1.31 X10^3/uL (2.7-7.7); POSITIVE MORPHOLOGY YES; Platelet Count 318 K/mm3 (150-450); RBC Distribution Width CV 15.6 % (11.6-14.6); RBC Distribution Width SD 55.3 fl (35.1-43.9); Red Blood Count 3.74 M/mm3 (4.6-6.2); White Blood Count 2.4 K/mm3 (4.4-11.0)
[2021-01-11 11:12] LABS: Differential Indicated SCAN CRITERIA MET
[2021-01-11 11:16] LABS: International Normalized Ratio 1.1
[2021-01-11 11:17] LABS: Partial Thromboplast Time 32.3 Seconds (24.1-36.2)
[2021-01-11 11:25] LABS: ALB/GLOB Ratio 0.8 RATIO (0.9-2.4); AST(SGOT) 105 U/L (15-37); Alanine Aminotransfer ALT/SGPT 81 U/L (16-61); Albumin, Serum 3.7 g/dL (3.2-5.0); Alkaline Phosphatase 81 U/L (45-117); Anion Gap 9 (5-15); BUN 28 mg/dL (7-18); BUN/Creat Ratio 18.5 RATIO (10-20); Calcium,Total 8.7 mg/dL (8.5-10.1); Chloride 101 mmol/L (98-107); Creatinine, Serum 1.51 mg/dL (0.70-1.30); EST Glomerular Filtration Rate 47 mL/min (>60); Est Glom Filt Rate - Afr Amer 57 mL/min (>60); Estimated Creatinine Clearance 30.01 ml/min; Globulin 4.4 g/dL (2.2-4.2); Glucose 111 mg/dL (74-106); Potassium 3.9 mmol/L (3.5-5.1); Protein, Total 8.1 g/dL (6.4-8.2); Sodium Level 135 mmol/L (136-145)
--- NOTE | 2021-01-11 11:47 | NURSING ---
LACTIC ACID HEMOLIZED
[2021-01-11 13:24] LABS: White Blood Cells 0 SEEN /hpf (0-5)
[2021-01-11 13:31] LABS: Color, Urine Yellow (Yellow); Glucose, Dipstick Normal (Normal); Ketone-Dipstick Negative (Negative); Leukocyte Esterase-Dipstick Negative /ul (Negative); Nitrite-Dipstick Negative (Negative); Occult Blood-Urine 25 /ul (Negative); Protein-Dipstick 100 mg/dl (Negative); Specific Gravity, Urine 1.025 (1.002-1.030); Urine Bilirubin Dipstick Negative (Negative); Urine Clarity Clear (Clear); Urine Urobilinogen Normal (Normal)
[2021-01-11 13:39] LABS: Bacteria 1+ /hpf (None Seen); Mucous, Urine RARE /hpf (<or=2+); Red Blood Cells-Urine 0-5 SEEN /hpf (0-5); Squamous Epithelial Cells - UA 0-5 SEEN /hpf (0-5)
[2021-01-11 13:40] LABS: Hyaline Cast 0-5 SEEN /lpf (0-5)
--- NOTE | 2021-01-11 14:01 | NURSING ---
ICU SEPSIS MARISA
--- NOTE | 2021-01-11 14:16 | PCM.HP.STD ---
HPI - General HPI Narrative EVERETT ORTIZ, is a 80 M who presented to the emergency department at [facility] from the formerly [facility] on 01/11/2021 with acute mental status change. Mr. Ortiz is familiar to me as I took care of him last month when he presented for acute mental status changes. He had an extensive work-up including it LP, but unfortunately his work-up was negative for any source and it was suspected he had a acute viral illness. Per discussion with his his mental status never returned to baseline. We did suspect some baseline cognitive impairment at the very least with mild dementia as a possibility prior to his presentation after discussion with his during his last hospitalization. He was discharged here on 630 to the formerly [facility] and then represented on 12/28/2020 after a fall where he had a large laceration of his right forehead. The stitches were recently removed. His is concerned because the right side of his face is swollen and has significant ecchymosis. She states today she was visiting him this morning and he was not waking up easily and therefore was transported to the emergency department. His T-max in the emergency department was 99.7. He has been tachycardic since arrival with rates of 105-120 in sinus rhythm. He is in no respiratory distress and his oxygen saturations are 96% on room air. His CBC shows a baseline leukopenia and anemia which has been chronic and currently being evaluated by Dr. Jhaveri as an outpatient. The patient has known history of SIADH. His serum sodium was 135 on presentation, his BUN is elevated at 28, his serum creatinine was 1.51 which is significantly higher than his baseline of around 1. His bilirubin is within normal limits but he has mild transaminitis which is new. His lactic acid is 2.0. His UA shows bacteria but no white cells. A CT of his brain showed no intracranial abnormalities. On exam the patient has his right laceration with edema around the right orbit and ecchymosis therefore a facial CT was performed and noted fractures of the right maxilla and right zygomaticofrontal suture with contusional changes of the soft tissues on the right side of his face that has decreased but new scalp swelling was noted without any discrete fluid collections. There is also a resolving right sinus hematoma. On my exam the laceration had drainage of sanguinopurulent fluid and cultures were to be obtained in the emergency department. He was given vancomycin and Zosyn as well as IV fluids and admitted to the ICU. [facility] Medical History (Updated 01/11/21 @ 14:[address] Scarlet Aguillon DO) Acute viral syndrome Bilateral carotid artery stenosis Cardiomyopathy Cochlear implant in place Essential hypertension Fall Forehead laceration Fracture of right side of maxilla Leukopenia Neutropenia Non-rheumatic aortic regurgitation Non-rheumatic mitral regurgitation SIADH (syndrome of inappropriate ADH production) Vasovagal syncope Home Medications montelukast 10 mg tablet 10 mg PO QHS 12/03/18 [History Last Taken 12/10/20] albuterol sulfate 90 mcg/actuation aerosol inhaler 2 puff INHALATION Q4H PRN #18 g 09/21/19 [Rx Last Taken 12/10/20] fluticasone 113 mcg-salmeterol 14 mcg/actuation breath activated powdr 1 inh INHALATION BID #1 ea 02/29/20 [Rx Last Taken 12/10/20] aspirin 81 mg PO BREAKFAST #1 tab 12/18/20 [Rx Last Taken Unknown] carvedilol 3.125 mg PO BID #1 tab 12/18/20 [Rx Last Taken Unknown] lisinopril 5 mg PO DAILY #1 tab 12/18/20 [Rx Last Taken Unknown] nystatin-triamcinolone 1 applic TOPICAL BID #15 g 12/18/20 [Rx Last Taken Unknown] lorazepam 0.5 mg PO QHS PRN PRN 01/11/21 [History Last Taken Unknown] quetiapine [Seroquel] 12.5 mg PO QHS 01/11/21 [History Last Taken Unknown] sennosides [senna] 8.6 mg PO DAILY 01/11/21 [History Last Taken Unknown] sodium chloride 1 g PO BID 01/11/21 [History Last Taken Unknown] Allergy/AdvReac Type Severity Reaction Status Date / Time No Known Allergies Allergy Verified 01/11/21 10:21 Family History Mother Cancer ovarian Social History Smoking Status: Never smoker alcohol intake: never substance use type: does not use caffeine: Yes Type: tea Number of servings: 1 what type of physical activity do you participate in: none seatbelt use: always do you feel safe at home: Yes ROS Review of Systems ROS Unobtainable: due to mental status Vital Signs Vital Signs Vital Signs: 01/11/21 10:16 01/11/21 10:22 01/11/21 11:27 Temperature 99.7 F H 99.7 F H 99.6 F H Temperature Source Temporal Temporal Temporal Pulse Rate 112 H 112 H 110 H Respiratory Rate 22 H 22 H 20 H Blood Pressure 129/38 H 129/38 H 144/63 H Blood Pressure Mean 68 68 90 Pulse Ox 94 94 94 Oxygen Delivery Method Room Air Room Air Room Air Weight Weight: 56.261 kg Body Mass Index (BMI) 18.3 Physical Exam Const alert Constitutional Narrative: Elderly white male lying in right side-lying in his bed, at bedside, patient is somewhat resistant to exam and seems sleepy, does resist with good strength noxious stimuli, patient smells strongly of urine General Appearance: uncooperative Orientation / Consciousness: confused and disoriented HEENT normocephalic HEENT Narrative: Right forehead with healing laceration, draining purulosanguinous fluid, marked ecchymosis most notably at the right face and eye Eyes PERRL, EOMs intact bilaterally and conjunctivae normal Eyes Narrative: Eyelids forced open Neck no lymphadenopathy, supple and no JVD Neck Narrative: Trachea midline Resp normal respiratory effort, no retractions, no use of accessory muscles and clear to auscultation bilaterally Auscultation: Negative for crackles, rales, rhonchi or wheezes Cardio regular rhythm, S1 normal heart sound, S2 normal heart sound, no rub, no gallops, no clicks and no JVD Cardio Narrative: Tachycardia, 2 out of 6 systolic murmur GI normal to inspection, nondistended, normoactive bowel sounds, soft to palpation, non-tender and non-distended; Negative for hepatosplenomegaly Extremity normal to inspection and no clubbing, cyanosis or edema Peripheral Pulses: Yes pulses 2+ throughout Skin No skin turgor normal, no jaundice, no petechiae and no mottling Skin Narrative: See HEENT exam Neuro moves all extremities and no focal motor deficits Results Medical Records Data Attestation: I reviewed the patient's medical records Lab / Micro Data Result Diagrams: 01/11/21 10:00 01/11/21 10:00 Labs: Laboratory Results - last 24 hr 01/11/21 10:00: WBC 2.4 L, RBC 3.74 L, Hgb 12.9 L, Hct 37.3 L, MCV 99.7 H, MCH 34.5 H, MCHC 34.6, RDW Std Deviation 55.3 H, RDW Coeff of Cris 15.6 H, Plt Count 318, MPV 9.0, Immature Gran % (Auto) 1.700 H, Neut % (Auto) 55.0, Lymph % (Auto) 35.3, [place] % (Auto) 8.0, Eos % (Auto) 0.0, Baso % (Auto) 0.0, Absolute Neuts (auto) 1.3 L, Absolute Lymphs (auto) 0.84, Nucleated RBC % 0 01/11/21 10:00: PT 14.0, INR 1.1, APTT 32.3 01/11/21 10:00: Sodium 135 L, Potassium 3.9, Chloride 101, Carbon Dioxide 25.0, Anion Gap 9, BUN 28 H, Creatinine 1.51 H, Estim Creat Clear Calc 30.01, Est GFR (MDRD) Af Amer 57 L, Est GFR (MDRD) Non-Af 47 L, BUN/Creatinine Ratio 18.5, Glucose 111 H, Calcium 8.7, Total Bilirubin 0.60, AST 105 H, ALT 81 H, Alkaline Phosphatase 81, Total Protein 8.1, Albumin 3.7, Globulin 4.4 H, Albumin/Globulin Ratio 0.8 L 01/11/21 11:20: Lactic Acid Cancelled 01/11/21 12:05: Lactic Acid 2.0 01/11/21 13:15: Urine Color Yellow, Urine Clarity Clear, Urine pH 5.0, Ur Specific [place] 1.025, Urine Protein 100 H, Urine Glucose (UA) Normal, Urine Ketones Negative, Urine Occult Blood 25 H, Urine Nitrite Negative, Urine Bilirubin Negative, Urine Urobilinogen Normal, Ur Leukocyte Esterase Negative, Urine RBC 0-5 SEEN, Urine WBC 0 SEEN, Ur Squamous Epith Cells 0-5 SEEN, Urine Bacteria 1+, Hyaline Casts 0-5 SEEN, Urine Mucus RARE Radiology Impression Brain CT 01/11/21 10:33 IMPRESSION: No evidence of acute intracranial injury. Individualized dose optimization techniques were used for this CT. at 1215 Reported and signed by: Jesus Rae MD Electronically Signed: Jesus Rae MD at 12:13 EDT Tel , Service support , Facial/Sinus 01/11/21 10:33 IMPRESSION: 1. Right facial fractures again noted without interval change. 2. New frontal scalp swelling. 3. No new fractures. 4. Resolving right sinus hematoma. Individualized dose optimization techniques were used for this CT. at 1220 Reported and signed by: Jesus Rae MD Electronically Signed: Jesus Rae MD at 12:19 EDT Tel , Service support , Chest X-Ray 01/11/21 10:34 IMPRESSION: No radiographic evidence of acute cardiopulmonary disease. No interval change. at 1229 Reported and signed by: Jesus Rae MD Electronically Signed: Jesus Rae MD at 12:28 EDT Tel , Service support , Assessment & Plan Assessment/Plan (1) Sepsis: (2) Acute UTI: (3) Infection, face: (4) Encephalopathy: PLAN: Severe sepsis secondary to UTI versus facial cellulitis status post laceration versus both -Patient with mental status change, BRANDON, transaminitis, leukopenia, tachycardia -Lactic acid was borderline at 2.0 -Fluid boluses ordered -Culture of drainage from laceration pending-aerobic and anaerobic -Blood and urine cultures pending -Highly doubt respiratory source -Check MRSA PCR -Vanco and Zosyn for now and narrow as able -Consult ICU BRANDON -Baseline serum creatinine is about 0.8-0.9 -Current serum creatinine is 1.51 -With history of SIADH will bolus at 30 cc/kg and then repeat BMP later today -Avoid nephrotoxins -Hold home lisinopril -Repeat BMP in a.m. Transaminitis -Patient has had this in the past but this is new elevation-mild -Suspect related to acute process -Trend Metabolic encephalopathy -Suspect related to acute illness -Continue home Seroquel and Ativan as needed Ferritin elevation -Etiology unclear -Possible that this is just an acute phase reactant -We will consult hematology for assistance Leukopenia/anemia -Patient is being followed by Dr. Jhaveri as an outpatient -Multiple outpatient labs were ordered -We will consult heme-onc for assistance during hospitalization SIADH -We will need to reinstitute fluid restriction at 1500 cc daily once patient is hydrated -With fluid bolus will repeat sodium level at 1800 today -Continue salt tablets -Patient was seen by Dr. Mae from nephrology--> no current need to consult but if the issues would consider discussing the case with him HFrEF-compensated -Echo done during last admission shows mild depression and ejection fraction with an EF of 44% -Etiology unclear -Patient has not yet been able to undergo an outpatient ischemia work-up -Doubt ischemia related because this is global -Currently compensated -Holding carvedilol and lisinopril at this time with above diagnoses -Restart as able Compensated stage I diastolic dysfunction -Monitor volume status and heart rate Asthma -As needed albuterol Functional decline -After discussion with will get palliative care and hospice involved for future discussions - states this is no life for him at all Deafness -Patient has a cochlear implant and a hearing aid -Still has considerable difficulty hearing -Does contribute to his delirium Severe malnutrition -Consult dietitian -Per discussion with the his p.o. intake has been very poor and he is lost considerable weight -BMI is now 18.3 DVT prophylaxis -Lovenox daily -SCDs as able CODE STATUS -DNR CCA no intubation Charges/Coding Visit Charges Inpatient E&M: 49096 Init Hosp L3
--- NOTE | 2021-01-11 14:27 | NURSING ---
ICU 3
--- NOTE | 2021-01-11 14:58 | CM.ED ---
SOCIAL WORK Referral Source: NurseNancy Reason for Consult: Discharge Planning Nursing reports worried about bed being held at [facility]. Patient from [facility] and plan to return once medically stable. Patient to be admitted to ICU. Call to Gala at [facility]. Per Gala, did sign bed hold agreement, however, since there are empty rooms at this time does not have to pay for bed. Gala reports they will call if payment is needed to hold the room. updated and thanked this worker. Plan: Admit to ICU Mahesh Almaguer MSW, ROOM CLERK
[2021-01-11 15:33] LABS: CPK Total, Creatine Kinase 315 U/L (39-308)
[2021-01-11] MEDS: 0.9% Normal Saline 1,000 ML 999 ML IV ×2 (15:40→16:50)
[2021-01-11 16:07] LABS: Reflex Lactate? Y
[2021-01-11 17:25] LABS: Lactic Acid 1.9 mmol/L (0.4-1.9)
[2021-01-11] MEDS: Haloperidol Lactate 5 MG/ML Vial 2 MG IV (17:25)
--- NOTE | 2021-01-11 17:39 | PCM.RX.CS ---
Consult Pharmacy has been consulted to manage selected antiobiotic: Vancomycin Type of Consult: New start Suspected Infection: Sepsis, Skin/Soft tissue Prior Doses of Antibiotics Received/Current Regimen: Received 750mg iv x 1 in ER. Labs: Sodium 135 mmol/L (136-145) L 01/11/21 10:00 Potassium 3.9 mmol/L (3.5-5.1) 01/11/21 10:00 Chloride 101 mmol/L (98-107) 01/11/21 10:00 Carbon Dioxide 25.0 mmol/L (21.0-32.0) 01/11/21 10:00 Anion Gap 9 (5-15) 01/11/21 10:00 BUN 28 mg/dL (7-18) H 01/11/21 10:00 Creatinine 1.51 mg/dL (0.70-1.30) H 01/11/21 10:00 Est GFR (MDRD) Af Amer 57 mL/min (>60) L 01/11/21 10:00 Est GFR (MDRD) Non-Af 47 mL/min (>60) L 01/11/21 10:00 BUN/Creatinine Ratio 18.5 RATIO (10-20) 01/11/21 10:00 Glucose 111 mg/dL (74-106) H 01/11/21 10:00 Weight used for dosin.5 kg Estimated Creatinine Clearance: 30ml/min Goal Trough: 15-20 mcg/mL Pharmacy Plan for Drug Dosing: Pharmacy pharmacokinetic consult requested 25mg/kg loading dose so have ordered 500mg iv x 1 today in addition to 750mg received earlier in ER. Further dosing ordered as 750mg iv daily with trough level on 01.13.21 before 3rd total dose . Pharmacy Service will continue to monitor and adjust dosing as required.
[2021-01-11] MEDS: Vancomycin IV 500 MG/100 ML BAG 100 MG IV (17:57)
[2021-01-11 19:35] LABS: Anion Gap 7 (5-15); BUN 24 mg/dL (7-18); BUN/Creat Ratio 18.6 RATIO (10-20); Calcium,Total 7.1 mg/dL (8.5-10.1); Chloride 110 mmol/L (98-107); Creatinine, Serum 1.29 mg/dL (0.70-1.30); EST Glomerular Filtration Rate 57 mL/min (>60); Est Glom Filt Rate - Afr Amer 68 mL/min (>60); Estimated Creatinine Clearance 34.03 ml/min; Glucose 125 mg/dL (74-106); Potassium 3.8 mmol/L (3.5-5.1); Sodium Level 139 mmol/L (136-145)
[2021-01-12] VITALS (21 sets, daily range): BP systolic 82–165; BP diastolic 45–121; PULSE 86–107; RESP 14–25; TEMP 36.7–37.7; O2SAT 92–100
[2021-01-12 05:00] LABS: Absolute Lymphocyte Count 0.65 X10^3/uL (0.83-4.51); Absolute Neutrophil Count 1.3 X10^3/uL (2.0-7.7); Eosinophil# 0.01 X10^3/uL; Eosinophils% 0.5 % (0-5); Hematocrit 27.7 % (40-54); Hemoglobin 9.8 g/dL (13.0-16.5); Lymphocyte # 0.65 X10^3/ul (0.83-4.51); Lymphocyte % 31.3 % (19-41); Mean Corp Hgb Conc 35.4 g/dL (32-36); Mean Corpuscular Volume 98.9 fL (80-94); Mean Platelet Vol. 8.9 fl (6.2-12.0); Monocyte# 0.15 X10^3/uL; Monocyte% 7.2 % (0-10); NRBC Flagged by Analyzer 0 % (0-5); Neutrophil # 1.25 X10^3/uL (2.7-7.7); POSITIVE MORPHOLOGY YES; Platelet Count 202 K/mm3 (150-450); RBC Distribution Width CV 15.3 % (11.6-14.6); RBC Distribution Width SD 54.7 fl (35.1-43.9); White Blood Count 2.1 K/mm3 (4.4-11.0)
[2021-01-12 05:06] LABS: Differential Indicated SCAN CRITERIA MET
[2021-01-12 05:21] LABS: ALB/GLOB Ratio 0.8 RATIO (0.9-2.4); AST(SGOT) 67 U/L (15-37); Alanine Aminotransfer ALT/SGPT 51 U/L (16-61); Albumin, Serum 2.6 g/dL (3.2-5.0); Alkaline Phosphatase 54 U/L (45-117); Anion Gap 6 (5-15); BUN 21 mg/dL (7-18); BUN/Creat Ratio 18.6 RATIO (10-20); Calcium,Total 7.5 mg/dL (8.5-10.1); Chloride 109 mmol/L (98-107); Creatinine, Serum 1.13 mg/dL (0.70-1.30); EST Glomerular Filtration Rate 66 mL/min (>60); Est Glom Filt Rate - Afr Amer 80 mL/min (>60); Estimated Creatinine Clearance 38.85 ml/min; Globulin 3.2 g/dL (2.2-4.2); Glucose 95 mg/dL (74-106); Potassium 3.9 mmol/L (3.5-5.1); Protein, Total 5.8 g/dL (6.4-8.2); Sodium Level 139 mmol/L (136-145)
[2021-01-12 05:30] LABS: Differential Comment SCANNED
--- NOTE | 2021-01-12 09:46 | EX.PCM.CONCC ---
Assessment & Plan Assessment/Plan (1) Infection, face: (2) Sepsis: (3) Encephalopathy: (4) Asthma: QUALIFIERS: Asthma severity: moderate Asthma persistence: persistent Asthma complication type: uncomplicated Qualified Code(s): J45.40 - Moderate persistent asthma, uncomplicated PLAN: RECOMMENDATIONS: 1. Continue empiric antibiotics, especially for gram-positives 2. Haldol as needed for agitation 3. Attempt discontinuation of restraints per protocol 4. Clarify goals of therapy 5. Possible transfer from the intensive care unit later today pending mentation IMPRESSIONS: 1. Acute metabolic encephalopathy secondary to sepsis secondary to cellulitis Patient's urinalysis is not suggestive of an infection from my perspective. However, patient's previous trauma does appear to have purulent material. Gram-positive's would be of concern. Given patient is in a care home, multidrug resistance would be a concern. We will continue with empiric antibiotics for now. Patient hemodynamically appears to be stable. Await results of culture. Patient will continue to receive Haldol as needed, but will attempt to discontinue restraints. Patient does not appear to have a respiratory source of infection. Patient also has significant deafness and some visual deficiencies that increase the risk for delirium/metabolic encephalopathy. 2. Acute kidney injury Baseline creatinine appears to be approximately 0.8. Patient is currently at 1.5. Patient did receive fluid resuscitation with improvement in renal function. No indication for renal replacement therapy at this time. 3. Leukopenia/anemia Patient has followed with hematology as an outpatient. Patient may have an element of bone marrow suppression secondary to problem #1. No indication for transfusion at this time. We will continue to monitor with daily labs. 4. Chronic compensated diastolic CHF/asthma/functional decline/malnutrition/deafness Complicates care, management, recovery and prognosis. Patient does not appear to be in acute exacerbation of CHF at this time. Patient also does not appear to have uncontrolled asthma. Albuterol as needed if clinically indicated. Dietitian will be consulted. HPI Consult Data Date of Consult: 01/12/21 HPI Narrative HPI Narrative: EVERETT ORTIZ is an 80 M, with past medical history listed below, who presents to [facility] on 01/11/2021 secondary to mental status changes. Patient was in an ECF secondary to chronic debility and dementia and recently had a fall requiring sutures. Patient's reportedly visits him every morning and noted that he was not waking up easily so he was transported to the ED for further evaluation. In the ER, patient was noted to be 99.7 ?F, tachycardic at 112 bpm, but normotensive at 129/38. Patient was tolerating room air and doing well. There was some concern for swelling in the forehead region and some pus was expectorated. Laboratory work-up was significant for leukopenia of 2.4, anemia of 12.9 and normal coagulation studies. Patient's creatinine was slightly elevated at 1.5, but liver function were within normal limits. Lactate was 2 and UA was unremarkable. A brain CT showed no evidence of intracranial imaging abnormalities. A facial scan did show right-sided facial fractures without interval change in new frontal scalp swelling with a resolving right sinus hematoma. Chest x-ray was unremarkable. Since being in the intensive care unit, patient continued to be confused. Patient pulled out IVs and was subsequently restrained. Patient has received some Haldol. Patient did have a fever as high as 37.9 ?C, but has remained hemodynamically stable on room air otherwise. Patient is unable to provide any additional history, so a review of systems was not obtained. [facility] Medical History Acute viral syndrome Bilateral carotid artery stenosis Cardiomyopathy Cochlear implant in place Essential hypertension Fall Forehead laceration Fracture of right side of maxilla Leukopenia Neutropenia Non-rheumatic aortic regurgitation Non-rheumatic mitral regurgitation SIADH (syndrome of inappropriate ADH production) Vasovagal syncope Home Medications montelukast 10 mg tablet 10 mg PO QHS 12/03/18 [History Last Taken 01/09/21] aspirin 81 mg PO BREAKFAST 01/11/21 [History Last Taken 01/10/21] carvedilol 3.125 mg PO BID 01/11/21 [History Last Taken 01/10/21] fluticasone propion-salmeterol [AirDuo RespiClick] 1 puff INHALATION BID 01/11/21 [History Last Taken 01/10/21] food supplemt, lactose-reduced [Boost Breeze] 240 ml PO BID 01/11/21 [History Last Taken 01/10/21] lisinopril 5 mg PO DAILY 01/11/21 [History Last Taken 01/10/21] lorazepam 0.5 mg PO QHS PRN PRN 01/11/21 [History Last Taken Unknown] quetiapine [Seroquel] 12.5 mg PO QHS 01/11/21 [History Last Taken 01/09/21] sennosides [senna] 8.6 mg PO DAILY 01/11/21 [History Last Taken 01/10/21] sodium chloride 1 g PO BID 01/11/21 [History Last Taken 01/10/21] Allergy/AdvReac Type Severity Reaction Status Date / Time No Known Allergies Allergy Verified 01/11/21 10:21 Family History Mother Cancer ovarian Social History Smoking Status: Never smoker alcohol intake: never substance use type: does not use caffeine: Yes Type: tea Number of servings: 1 what type of physical activity do you participate in: none seatbelt use: always do you feel safe at home: Yes ROS Review of Systems ROS Unobtainable: due to mental status Physical Exam Const alert General Appearance: uncooperative Orientation / Consciousness: confused and disoriented; Negative for oriented to person, oriented to place or oriented to time HEENT normocephalic HEENT Narrative: Right forehead with healing laceration, draining purulosanguinous fluid, marked ecchymosis most notably at the right face and eye Eyes PERRL, EOMs intact bilaterally and conjunctivae normal Eyes Narrative: Eyelids forced open Neck no lymphadenopathy, supple and no JVD Neck Narrative: Trachea midline Resp normal respiratory effort, no retractions, no use of accessory muscles and clear to auscultation bilaterally Auscultation: Negative for crackles, rales, rhonchi or wheezes Cardio regular rhythm, S1 normal heart sound, S2 normal heart sound, no rub, no gallops, no clicks and no JVD Heart Sounds: murmur systolic II/ low-pitched early GI normal to inspection, nondistended, normoactive bowel sounds, soft to palpation, non-tender and non-distended; Negative for hepatosplenomegaly Extremity normal to inspection and no clubbing, cyanosis or edema Peripheral Pulses: Yes pulses 2+ throughout Skin No skin turgor normal, no jaundice, no petechiae and no mottling Skin Narrative: See HEENT exam Neuro moves all extremities and no focal motor deficits Psych Negative for thought process normal Activity / Motor Behavior: restless Mood & Affect: labile affect Lab / Micro Data Result Diagrams: 01/12/21 04:45 01/12/21 04:45 Labs: Laboratory Results - last 24 hr 01/11/21 10:00: WBC 2.4 L, RBC 3.74 L, Hgb 12.9 L, Hct 37.3 L, MCV 99.7 H, MCH 34.5 H, MCHC 34.6, RDW Std Deviation 55.3 H, RDW Coeff of Cris 15.6 H, Plt Count 318, MPV 9.0, Immature Gran % (Auto) 1.700 H, Neut % (Auto) 55.0, Lymph % (Auto) 35.3, [place] % (Auto) 8.0, Eos % (Auto) 0.0, Baso % (Auto) 0.0, Absolute Neuts (auto) 1.3 L, Absolute Lymphs (auto) 0.84, Nucleated RBC % 0 01/11/21 10:00: PT 14.0, INR 1.1, APTT 32.3 01/11/21 10:00: Sodium 135 L, Potassium 3.9, Chloride 101, Carbon Dioxide 25.0, Anion Gap 9, BUN 28 H, Creatinine 1.51 H, Estim Creat Clear Calc 30.01, Est GFR (MDRD) Af Amer 57 L, Est GFR (MDRD) Non-Af 47 L, BUN/Creatinine Ratio 18.5, Glucose 111 H, Calcium 8.7, Total Bilirubin 0.60, AST 105 H, ALT 81 H, Alkaline Phosphatase 81, Total Protein 8.1, Albumin 3.7, Globulin 4.4 H, Albumin/Globulin Ratio 0.8 L 01/11/21 10:00: Total Creatine Kinase 315 H 01/11/21 11:20: Lactic Acid Cancelled 01/11/21 12:05: Lactic Acid 2.0 01/11/21 13:15: Urine Color Yellow, Urine Clarity Clear, Urine pH 5.0, Ur Specific [place] 1.025, Urine Protein 100 H, Urine Glucose (UA) Normal, Urine Ketones Negative, Urine Occult Blood 25 H, Urine Nitrite Negative, Urine Bilirubin Negative, Urine Urobilinogen Normal, Ur Leukocyte Esterase Negative, Urine RBC 0-5 SEEN, Urine WBC 0 SEEN, Ur Squamous Epith Cells 0-5 SEEN, Urine Bacteria 1+, Hyaline Casts 0-5 SEEN, Urine Mucus RARE 01/11/21 16:45: Lactic Acid 1.9 01/11/21 18:55: Sodium 139, Potassium 3.8, Chloride 110 H, Carbon Dioxide 22.0, Anion Gap 7, BUN 24 H, Creatinine 1.29, Estim Creat Clear Calc 34.03, Est GFR (MDRD) Af Amer 68, Est GFR (MDRD) Non-Af 57 L, BUN/Creatinine Ratio 18.6, Glucose 125 H, Calcium 7.1 L 01/12/21 04:45: WBC 2.1 L, RBC 2.80 L, Hgb 9.8 L, Hct 27.7 L, MCV 98.9 H, MCH 35.0 H, MCHC 35.4, RDW Std Deviation 54.7 H, RDW Coeff of Cris 15.3 H, Plt Count 202, MPV 8.9, Immature Gran % (Auto) 1.000 H, Neut % (Auto) 60.0, Lymph % (Auto) 31.3, [place] % (Auto) 7.2, Eos % (Auto) 0.5, Baso % (Auto) 0.0, Absolute Neuts (auto) 1.3 L, Absolute Lymphs (auto) 0.65 L, Nucleated RBC % 0, Differential Comment SCANNED 01/12/21 04:45: Sodium 139, Potassium 3.9, Chloride 109 H, Carbon Dioxide 24.0, Anion Gap 6, BUN 21 H, Creatinine 1.13, Estim Creat Clear Calc 38.85, Est GFR (MDRD) Af Amer 80, Est GFR (MDRD) Non-Af 66, BUN/Creatinine Ratio 18.6, Glucose 95, Calcium 7.5 L, Total Bilirubin 0.60, AST 67 H, ALT 51, Alkaline Phosphatase 54, Total Protein 5.8 L, Albumin 2.6 L, Globulin 3.2, Albumin/Globulin Ratio 0.8 L Radiology Impression Brain CT 01/11/21 10:33 IMPRESSION: No evidence of acute intracranial injury. Individualized dose optimization techniques were used for this CT. at 1215 Reported and signed by: Jesus Rae MD Electronically Signed: Jesus Rae MD at 12:13 EDT Tel , Service support , Facial/Sinus 01/11/21 10:33 IMPRESSION: 1. Right facial fractures again noted without interval change. 2. New frontal scalp swelling. 3. No new fractures. 4. Resolving right sinus hematoma. Individualized dose optimization techniques were used for this CT. at 1220 Reported and signed by: Jesus Rae MD Electronically Signed: Jesus Rae MD at 12:19 EDT Tel , Service support , Chest X-Ray 01/11/21 10:34 IMPRESSION: No radiographic evidence of acute cardiopulmonary disease. No interval change. at 1229 Reported and signed by: Jesus Rae MD Electronically Signed: Jesus Rae MD at 12:28 EDT Tel , Service support , Charges/Coding Visit Charges Inpatient E&M: 56099 Init Hosp L3
--- NOTE | 2021-01-12 10:32 | CASEMGMT ---
Addendum entered by Kandy Lowry 01/12/21 13:28: SW spoke w/[employer] SUPERINTENDENT, she spoke w/hospice and w/, they are to meet sometime this afternoon. SUMIT Whiting Addendum entered by aKndy Lowry 01/12/21 12:07: SW called [facility], spoke w/Justo. He has not yet called pt's to set up a time to meet, plans to call her soon. SUMIT Whiting Original Note: SW participated in ICU rounds, as per RN, would like to speak w/ hospice about options. SW called , confirmed she would like referral made. SW educated on hospice, she is agreeable to meet w/hospice this afternoon between 2-3pm. SW called [facility], spoke w/Justo. SW faxe Justo vincent to let SW know when they will be meeting w/. SW did explain to hospice that is not certain what she wants to do, will want to review all options. SW called [facility], message left for Vicky who is the e mail system administrator covering admissions today. SYDNIE will continue to follow. SUMIT Whiting
--- NOTE | 2021-01-12 11:01 | CASEMGMT ---
RN CM Chart review: Patient was admitted 12/12/20-12/18/20 for weakness, debility, confusion, hyponatremia, and SIADH. See RN CM assessment from 12/12/20. Patient was discharged to [facility] for additional therapy. Patient was seen in ED on 12/28/20 for Laceration after fall at SNF and returned to SNF. Patient was readmitted 01/11 for mental status change, severe sepsis secondary to UTI vs facial cellulitis. Per nursing staff stated that this is no way for the patient to live with his dementia. SW talked with spouse and would like consult with hospice/palliative. Hospice to meet with and discuss planning. Dispostion: SNF vs hospice.
--- NOTE | 2021-01-12 12:00 | NURSING ---
wound photo: forehead
--- NOTE | 2021-01-12 12:03 | PN.HOSP_ITS ---
Subjective Subjective Still difficult to arouse. No issues overnight Objective Data Objective Data Vital Signs: Vital Signs Temp Pulse Resp BP Pulse Ox 98.8 F 97 24 H 122/94 H 94 01/12/21 08:47 01/12/21 10:00 01/12/21 10:00 01/12/21 10:00 01/12/21 10:00 Oxygen Delivery Method Room Air Weight: 120 lb 5.958 oz Body Mass Index (BMI) 17.8 Intake & Output: Intake and Output for Last 24 Hours 01/11/21 01/12/21 01/13/21 03:59 03:59 03:59 Intake Total 2515 / 0985 50 / 50 Balance 2515 / 2515 50 / 50 Medical Nutrition Assessment Dietitian: Nutrition Therapy Diagnosis Start: 01/12/21 09:59 Freq: Status: Active Protocol: Document 01/12/21 10:21 [facility] (Rec: 01/12/21 10:21 [facility] [id number]) Nutrition Malnutrition Evidence of Malnutrition Exists Yes Evidenced By Suboptimal Energy Intake ( Severe),Weight Loss (Severe) Clinical Problem Acute Disease or Injury Related Malnutrition Etiology related to inadequate energy intake due to severe sepsis/ declining health over past month Signs/Symptoms as evidenced by suspected <75% po intake and 8.4% wt loss x 1 month; pt with increased confusion/lethargy. Status Active Problem Recommendation Dietitian Recommendations/Changes Will provide ensure pudding or magic cup w/ meals for increased nutrition if consumed. Rec continue liberal Regular diet d/t signs/symptoms of malnutrition. Lab / Micro Data Result Diagrams: 01/12/21 04:45 01/12/21 04:45 Labs: Laboratory Results - last 24 hr 01/11/21 10:00: Total Creatine Kinase 315 H 01/11/21 12:05: Lactic Acid 2.0 01/11/21 13:15: Urine Color Yellow, Urine Clarity Clear, Urine pH 5.0, Ur Specific [place] 1.025, Urine Protein 100 H, Urine Glucose (UA) Normal, Urine Ketones Negative, Urine Occult Blood 25 H, Urine Nitrite Negative, Urine Bilirubin Negative, Urine Urobilinogen Normal, Ur Leukocyte Esterase Negative, Urine RBC 0-5 SEEN, Urine WBC 0 SEEN, Ur Squamous Epith Cells 0-5 SEEN, Urine Bacteria 1+, Hyaline Casts 0-5 SEEN, Urine Mucus RARE 01/11/21 16:45: Lactic Acid 1.9 01/11/21 18:55: Sodium 139, Potassium 3.8, Chloride 110 H, Carbon Dioxide 22.0, Anion Gap 7, BUN 24 H, Creatinine 1.29, Estim Creat Clear Calc 34.03, Est GFR (MDRD) Af Amer 68, Est GFR (MDRD) Non-Af 57 L, BUN/Creatinine Ratio 18.6, Glucose 125 H, Calcium 7.1 L 01/12/21 04:45: WBC 2.1 L, RBC 2.80 L, Hgb 9.8 L, Hct 27.7 L, MCV 98.9 H, MCH 35.0 H, MCHC 35.4, RDW Std Deviation 54.7 H, RDW Coeff of Cris 15.3 H, Plt Count 202, MPV 8.9, Immature Gran % (Auto) 1.000 H, Neut % (Auto) 60.0, Lymph % (Auto) 31.3, [place] % (Auto) 7.2, Eos % (Auto) 0.5, Baso % (Auto) 0.0, Absolute Neuts (auto) 1.3 L, Absolute Lymphs (auto) 0.65 L, Nucleated RBC % 0, Differential Comment SCANNED 01/12/21 04:45: Sodium 139, Potassium 3.9, Chloride 109 H, Carbon Dioxide 24.0, Anion Gap 6, BUN 21 H, Creatinine 1.13, Estim Creat Clear Calc 38.85, Est GFR (MDRD) Af Amer 80, Est GFR (MDRD) Non-Af 66, BUN/Creatinine Ratio 18.6, Glucose 95, Calcium 7.5 L, Total Bilirubin 0.60, AST 67 H, ALT 51, Alkaline Phosphatase 54, Total Protein 5.8 L, Albumin 2.6 L, Globulin 3.2, Albumin/Globulin Ratio 0.8 L Radiography Diagnostic Testing: Radiology Impression Brain CT 01/11/21 10:33 IMPRESSION: No evidence of acute intracranial injury. Individualized dose optimization techniques were used for this CT. at 1215 Reported and signed by: Jesus Rae MD Electronically Signed: Jesus Rae MD at 12:13 EDT Tel , Service support , Facial/Sinus 01/11/21 10:33 IMPRESSION: 1. Right facial fractures again noted without interval change. 2. New frontal scalp swelling. 3. No new fractures. 4. Resolving right sinus hematoma. Individualized dose optimization techniques were used for this CT. at 1220 Reported and signed by: Jesus Rae MD Electronically Signed: Jesus Rae MD at 12:19 EDT Tel , Service support , Chest X-Ray 01/11/21 10:34 IMPRESSION: No radiographic evidence of acute cardiopulmonary disease. No interval change. at 1229 Reported and signed by: Jesus Rae MD Electronically Signed: Jesus Rae MD at 12:28 EDT Tel , Service support , Physical Exam Const Orientation / Consciousness: lethargic HEENT normocephalic Head and Scalp: laceration Mouth: dry mucous membranes Eyes PERRL, EOMs intact bilaterally and conjunctivae normal Neck supple and no JVD Resp normal respiratory effort, no retractions, no use of accessory muscles and clear to auscultation bilaterally Auscultation: Negative for crackles, rales, rhonchi or wheezes Cardio regular rate, regular rhythm, S1 normal heart sound and S2 normal heart sound Heart Sounds: murmur GI soft to palpation, non-tender and non-distended; Negative for hepatosplenomegaly Extremity no clubbing, cyanosis or edema Skin no rashes or lesions noted Neuro moves all extremities Psych Psych Narrative: Sedate and not interactive Assessment & Plan Assessment/Plan (1) Sepsis: (2) Acute UTI: (3) Infection, face: (4) Encephalopathy: PLAN: 1. Severe sepsis secondary to UTI versus facial cellulitis status post laceration/BRANDON/metabolic encephalopathy/transaminitis/functional decline and severe malnutrition -Significant mental status change, he is lethargic and does not arouse -Continue with antibiotics -Appreciate tuber operator help -BRANDON has resolved -LFTs are improving - would like to discuss hospice and could potentially transfer to hospice care 2. Chronic leukopenia and anemia -Being followed as an outpatient by Dr. 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 Chronic systolic and diastolic CHF/HTN/HLD -We will monitor his fluid status currently does not appear to be in exacerbation of his heart failure -We will continue to hold Coreg and lisinopril secondary to her kidney issues and lower blood pressure. DVT: Lovenox Charges/Coding Visit Charges Inpatient E&M: 58028 Subs Hosp L2
[2021-01-12] MEDS: Enoxaparin 40 MG/0.4 ML Syringe SC (12:38)
[2021-01-12] MEDS: Nystatin/Triamcin Cream Tube 1 APPLIC TOPICAL ×2 (12:38→21:12)
--- NOTE | 2021-01-12 15:52 | CASEMGMT ---
met w/Justo from [facility]. She did not sign on for hospice, stating she is not ready yet--but will speak w/family about it. SW spoke w/ in room, pt in restraints but trying to climb out of bed when SW in the room; and RN both working to get pt comfortable in bed. SW gave list of nursing homes that take pt's insurance, in their desired geographic area, complete with quality and resource use data. had indicated to Justo with [facility] that she wants to make a facility change. explained to SW that she does not think [facility] can manage his behavior, and wants him to go somewhere that can manage him. SW explained the plan would be to have him less restless prior to sending out a referral, SW explained that as long as he in in restraints we would not be working on placement just yet. states understanding. SW asked to let SW know on Friday some other choices, and we will send the referral and see where may be able to take pt. mentioned [facility], however they did not take pt when he was here last time. SW will follow up w/ on Friday for other options--referral can be sent again to [facility], though additional choices may be needed. SUMIT Whiting
[2021-01-12] MEDS: Haloperidol Lactate 5 MG/ML Vial IV (19:29)
[2021-01-12] MEDS: 0.9% Saline Lock 10 ML Syringe IV (19:39)
[2021-01-12] MEDS: QUEtiapine 25 MG Tablet 12.5 MG PO (21:13)
[2021-01-12] MEDS: Sodium Chloride 1 GM Tablet PO (21:13)
[2021-01-13 03:35] VITALS: BP 108/55; PULSE 90; RESP 18; TEMP 36.7; O2SAT 99
[2021-01-13 05:45] LABS: Hematocrit 27.8 % (40-54); Hemoglobin 9.9 g/dL (13.0-16.5); Mean Corp Hgb Conc 35.6 g/dL (32-36); Mean Corpuscular Hgb 34.6 pg (27.0-32.0); Mean Corpuscular Volume 97.2 fL (80-94); Mean Platelet Vol. 8.5 fl (6.2-12.0); Platelet Count 165 K/mm3 (150-450); RBC Distribution Width CV 15.4 % (11.6-14.6); RBC Distribution Width SD 53.7 fl (35.1-43.9); Red Blood Count 2.86 M/mm3 (4.6-6.2); White Blood Count 1.7 K/mm3 (4.4-11.0)
[2021-01-13 05:58] LABS: Anion Gap 9 (5-15); BUN 16 mg/dL (7-18); BUN/Creat Ratio 16.3 RATIO (10-20); Calcium,Total 7.8 mg/dL (8.5-10.1); Chloride 109 mmol/L (98-107); Creatinine, Serum 0.98 mg/dL (0.70-1.30); EST Glomerular Filtration Rate 78 mL/min (>60); Est Glom Filt Rate - Afr Amer 94 mL/min (>60); Estimated Creatinine Clearance 44.11 ml/min; Glucose 77 mg/dL (74-106); Magnesium 1.8 mg/dL (1.6-2.6); Phosphorus 2.3 mg/dL (2.5-4.9); Potassium 3.5 mmol/L (3.5-5.1); Sodium Level 140 mmol/L (136-145)
--- NOTE | 2021-01-13 06:23 | PCM.PN.INT ---
Assessment & Plan Assessment/Plan (1) Infection, face: (2) Sepsis: (3) Encephalopathy: (4) Asthma: QUALIFIERS: Asthma severity: moderate Asthma persistence: persistent Asthma complication type: uncomplicated Qualified Code(s): J45.40 - Moderate persistent asthma, uncomplicated PLAN: RECOMMENDATIONS: 1. Continue empiric antibiotics, narrow spectrum if found to be MSSA 2. Seroquel/Haldol as needed for agitation 3. Electrolyte repletion as indicated 4. Clarify goals of therapy 5. Okay to transfer from the intensive care unit IMPRESSIONS: 1. Acute metabolic encephalopathy secondary to sepsis secondary to staph aureus cellulitis Patient's urinalysis is not suggestive of an infection from my perspective. However, patient's previous trauma does appear to have purulent material. Patient appears to be growing staph aureus from his scalp lesion. Given patient is in a jail, multidrug resistance would be a concern. We will continue with empiric antibiotics for now. Patient hemodynamically appears to be stable. Await results of sensitivity. Patient will continue to receive Haldol as needed, but will attempt to discontinue restraints. Patient does not appear to have a respiratory source of infection. Patient also has significant deafness and some visual deficiencies that increase the risk for delirium/metabolic encephalopathy. 2. Acute kidney injury Improving. Baseline creatinine appears to be approximately 0.8. Patient presented at 1.5. Patient did receive fluid resuscitation with improvement in renal function. No indication for renal replacement therapy at this time. 3. Leukopenia/anemia Patient has followed with hematology as an outpatient. Patient may have an element of bone marrow suppression secondary to problem #1. No indication for transfusion at this time. We will continue to monitor with daily labs. 4. Chronic compensated diastolic CHF/asthma/functional decline/malnutrition/deafness Complicates care, management, recovery and prognosis. Patient does not appear to be in acute exacerbation of CHF at this time. Patient also does not appear to have uncontrolled asthma. Albuterol as needed if clinically indicated. Dietitian will be consulted. Subjective Subjective Patient improved overnight. Patient was able to be taken off of restraints at approximately 3 AM. Patient remains confused, but has responded well to Seroquel. Patient is still reporting pain on his forehead. No pressors or fluid boluses have been required overnight. Objective Data Objective Data Vital Signs: Vital Signs Temp Pulse Resp BP Pulse Ox 36.7 C 90 18 108/55 L 99 01/13/21 03:35 01/13/21 03:35 01/13/21 03:35 01/13/21 03:35 01/13/21 03:35 Oxygen Delivery Method Room Air Weight: 54.7 kg Body Mass Index (BMI) 17.8 Intake & Output: Intake and Output for Last 24 Hours 01/11/21 01/12/21 01/13/21 23:59 23:59 23:59 Intake Total 2465 / 2465 465 / 465 50 / 50 Output Total Balance 2465 / 2465 464 / 464 50 / 50 Medical Nutrition Assessment Dietitian: Nutrition Therapy Diagnosis Start: 01/12/21 09:59 Freq: Status: Active Protocol: Document 01/12/21 10:21 [facility] (Rec: 01/12/21 10:21 [facility] [id number]) Nutrition Malnutrition Evidence of Malnutrition Exists Yes Evidenced By Suboptimal Energy Intake ( Severe),Weight Loss (Severe) Clinical Problem Acute Disease or Injury Related Malnutrition Etiology related to inadequate energy intake due to severe sepsis/ declining health over past month Signs/Symptoms as evidenced by suspected <75% po intake and 8.4% wt loss x 1 month; pt with increased confusion/lethargy. Status Active Problem Recommendation Dietitian Recommendations/Changes Will provide ensure pudding or magic cup w/ meals for increased nutrition if consumed. Rec continue liberal Regular diet d/t signs/symptoms of malnutrition. Lab / Micro Data Result Diagrams: 01/13/21 05:40 01/13/21 05:40 Labs: Laboratory Results - last 24 hr 01/13/21 05:40: WBC 1.7 L, RBC 2.86 L, Hgb 9.9 L, Hct 27.8 L, MCV 97.2 H, MCH 34.6 H, MCHC 35.6, RDW Std Deviation 53.7 H, RDW Coeff of Cris 15.4 H, Plt Count 165, MPV 8.5 01/13/21 05:40: Sodium 140, Potassium 3.5, Chloride 109 H, Carbon Dioxide 22.0, Anion Gap 9, BUN 16, Creatinine 0.98, Estim Creat Clear Calc 44.11, Est GFR (MDRD) Af Amer 94, Est GFR (MDRD) Non-Af 78, BUN/Creatinine Ratio 16.3, Glucose 77, Calcium 7.8 L, Phosphorus 2.3 L, Magnesium 1.8 Micro: Microbiology 01/11/21 11:20 Blood Culture (Wb) - No Site/Description Given Blood Culture - Preliminary No growth in 48 hours. 01/11/21 11:05 Blood Culture (Wb) - Anticubital Left Blood Culture - Preliminary No growth in 48 hours. 01/11/21 14:05 Wound - Other Gram Stain - Final 01/11/21 14:05 Wound - Other Wound Culture - Preliminary Staphylococcus aureus 01/11/21 14:05 Wound - Other Anaerobic Culture - Preliminary 01/11/21 13:15 Urine, Catheterized Urine Culture - Preliminary Culture exhibits no growth. Physical Exam Const Orientation / Consciousness: confused and disoriented; Negative for oriented to person, oriented to place or oriented to time Eyes Periorbital: periorbital findings abnormal right (Ecchymosis with slight swelling) Conjunctiva: conjunctiva normal Sclera: sclera normal Neck Neck Narrative: Trachea midline Resp normal respiratory effort, normal air movement, no use of accessory muscles and clear to auscultation bilaterally Cardio regular rate, regular rhythm, S1 normal heart sound, S2 normal heart sound, no rub and no gallops Heart Sounds: murmur systolic II/ low-pitched early Extremity normal to inspection and full ROM Skin Skin Narrative: See HEENT exam Lesions: lesion noted Right forehead Narrative: Slight erythema, but improved compared to yesterday Psych Negative for thought process normal Activity / Motor Behavior: restless Mood & Affect: labile affect Charges/Coding Visit Charges Inpatient E&M: 89107 Subs Hosp L3
[2021-01-13] MEDS: Aspirin E.C. 81 MG Tablet PO (08:10)
[2021-01-13] MEDS: QUEtiapine 25 MG Tablet PO ×2 (08:10→20:50)
--- NOTE | 2021-01-13 09:23 | PN.HOSP_ITS ---
Subjective Subjective Still confused his restraints were discontinued this morning around 3 AM and then he removed his IV at around 730 this morning. We will need to continue with the Seroquel Objective Data Objective Data Vital Signs: Vital Signs Temp Pulse Resp BP Pulse Ox 98.0 F 90 18 108/55 L 99 01/13/21 03:35 01/13/21 03:35 01/13/21 03:35 01/13/21 03:35 01/13/21 03:35 Oxygen Delivery Method Room Air Weight: 120 lb 9.486 oz Body Mass Index (BMI) 17.8 Intake & Output: Intake and Output for Last 24 Hours 01/12/21 01/13/21 01/14/21 03:59 03:59 03:59 Intake Total 5 / 5 465 / 465 Output Total Balance 2515 / 5 464 / 464 Medical Nutrition Assessment Dietitian: Nutrition Therapy Diagnosis Start: 01/12/21 09:59 Freq: Status: Active Protocol: Document 01/12/21 10:21 [facility] (Rec: 01/12/21 10:21 [facility] [id number]) Nutrition Malnutrition Evidence of Malnutrition Exists Yes Evidenced By Suboptimal Energy Intake ( Severe),Weight Loss (Severe) Clinical Problem Acute Disease or Injury Related Malnutrition Etiology related to inadequate energy intake due to severe sepsis/ declining health over past month Signs/Symptoms as evidenced by suspected <75% po intake and 8.4% wt loss x 1 month; pt with increased confusion/lethargy. Status Active Problem Recommendation Dietitian Recommendations/Changes Will provide ensure pudding or magic cup w/ meals for increased nutrition if consumed. Rec continue liberal Regular diet d/t signs/symptoms of malnutrition. Lab / Micro Data Result Diagrams: 01/13/21 05:40 01/13/21 05:40 Labs: Laboratory Results - last 24 hr 01/13/21 05:40: WBC 1.7 L, RBC 2.86 L, Hgb 9.9 L, Hct 27.8 L, MCV 97.2 H, MCH 34.6 H, MCHC 35.6, RDW Std Deviation 53.7 H, RDW Coeff of Cris 15.4 H, Plt Count 165, MPV 8.5 01/13/21 05:40: Sodium 140, Potassium 3.5, Chloride 109 H, Carbon Dioxide 22.0, Anion Gap 9, BUN 16, Creatinine 0.98, Estim Creat Clear Calc 44.11, Est GFR (MDRD) Af Amer 94, Est GFR (MDRD) Non-Af 78, BUN/Creatinine Ratio 16.3, Glucose 77, Calcium 7.8 L, Phosphorus 2.3 L, Magnesium 1.8 Micro: Microbiology 01/11/21 13:15 Urine, Catheterized Urine Culture - Final Culture exhibits no growth. 01/11/21 14:05 Wound - Other Gram Stain - Final 01/11/21 14:05 Wound - Other Wound Culture - Final Meth. resistant Staph. aureus 01/11/21 11:20 Blood Culture (Wb) - No Site/Description Given Blood Culture - Preliminary No growth in 48 hours. 01/11/21 11:05 Blood Culture (Wb) - Anticubital Left Blood Culture - Pre liminary No growth in 48 hours. Physical Exam Const Orientation / Consciousness: confused and lethargic HEENT normocephalic Eyes PERRL, EOMs intact bilaterally and conjunctivae normal Neck supple and no JVD Resp normal respiratory effort, no retractions, no use of accessory muscles and clear to auscultation bilaterally Auscultation: Negative for crackles, rales, rhonchi or wheezes Cardio regular rate, regular rhythm, S1 normal heart sound and S2 normal heart sound Heart Sounds: murmur GI soft to palpation, non-tender and non-distended; Negative for hepatosplenomegaly Extremity no clubbing, cyanosis or edema Skin no rashes or lesions noted Neuro moves all extremities Psych Psych Narrative: Sedate and not interactive Assessment & Plan Assessment/Plan (1) Sepsis: (2) Acute UTI: (3) Infection, face: (4) Encephalopathy: PLAN: 1. 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 2. Chronic leukopenia and anemia -Being followed as an outpatient by Dr. 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 Chronic systolic and diastolic CHF/HTN/HLD -We will monitor his fluid status currently does not appear to be in exacerbation of his heart failure -We will continue to hold Coreg and lisinopril secondary to her kidney issues and lower blood pressure. DVT: Lovenox Charges/Coding Visit Charges Inpatient E&M: 09732 Subs Hosp L2
[2021-01-13] MEDS: Nystatin/Triamcin Cream Tube 1 APPLIC TOPICAL (09:56)
[2021-01-13] MEDS: Sodium Chloride 1 GM Tablet PO ×2 (09:56→20:50)
[2021-01-13] MEDS: Enoxaparin 40 MG/0.4 ML Syringe SC (09:56)
[2021-01-13 10:00] VITALS: BP 120/58; PULSE 94; RESP 16; TEMP 37.3; O2SAT 94
[2021-01-13 12:00] VITALS: BP 121/67; PULSE 103; RESP 16; O2SAT 100
[2021-01-13 13:04] VITALS: BP 121/67; PULSE 105; RESP 16; O2SAT 98
--- NOTE | 2021-01-13 15:07 | CASEMGMT ---
SYDNIE Note Referral Source: Biomed Tech Referral Reason: Discharge planning SW was advised that patient was out of restraints this morning. SW called patient's , Sayda Cardoza. SW inquired if she had decided on placement for patient and she said no. Sayda said that she had talked to ICU and patient was back in restraints as he was pulling out his IVs this morning. SW said that then the social director will follow up with her next week. No further SW services needed at this time. Plan: To be determined Nels[facility]
[2021-01-13 19:07] LABS: Vancomycin, Trough Level 5.7 ug/mL (5.0-15.0)
[2021-01-13 19:47] VITALS: BP 124/82; PULSE 90; RESP 20; TEMP 36.7; O2SAT 100
--- NOTE | 2021-01-13 20:18 | PCM.RX.CS ---
Consult Pharmacy has been consulted to manage selected antiobiotic: Vancomycin Type of Consult: Follow-up Suspected Infection: Sepsis, Skin/Soft tissue Prior Doses of Antibiotics Received/Current Regimen: Medications Vancomycin HCl 750 mg/ Sodium (Chloride) 265 mls @ 250 mls/hr IV Q24H [facility] Stop: 01/13/21 21:00 Last Admin: 01/13/21 19:37 Dose: 250 mls/hr Vancomycin HCl 750 mg/ Sodium (Chloride) 265 mls @ 250 mls/hr IV Q12H [facility] Labs: Sodium 140 mmol/L (136-145) 01/13/21 05:40 Potassium 3.5 mmol/L (3.5-5.1) 01/13/21 05:40 Chloride 109 mmol/L (98-107) H 01/13/21 05:40 Carbon Dioxide 22.0 mmol/L (21.0-32.0) 01/13/21 05:40 Anion Gap 9 (5-15) 01/13/21 05:40 BUN 16 mg/dL (7-18) 01/13/21 05:40 Creatinine 0.98 mg/dL (0.70-1.30) 01/13/21 05:40 Est GFR (MDRD) Af Amer 94 mL/min (>60) 01/13/21 05:40 Est GFR (MDRD) Non-Af 78 mL/min (>60) 01/13/21 05:40 BUN/Creatinine Ratio 16.3 RATIO (10-20) 01/13/21 05:40 Glucose 77 mg/dL (74-106) 01/13/21 05:40 Vancomycin Trough 5.7 ug/mL (5.0-15.0) 01/13/21 18:25 Microbiology: Microbiology 01/11/21 13:15 Urine, Catheterized Urine Culture - Final Culture exhibits no growth. 01/11/21 14:05 Wound - Other Gram Stain - Final 01/11/21 14:05 Wound - Other Wound Culture - Final Meth. resistant Staph. aureus 01/11/21 11:20 Blood Culture (Wb) - No Site/Description Given Blood Culture - Preliminary No growth in 48 hours. 01/11/21 11:05 Blood Culture (Wb) - Anticubital Left Blood Culture - Preliminary No growth in 48 hours. Weight used for dosin.7 kg Estimated Creatinine Clearance: 44 Goal Trough: 15-20 mcg/mL Pharmacy Plan for Drug Dosing: Vancomycin trough level of 5.7 was below target range of 15-20. Per PK dosing calculator the dose was increased to 750mg q12h. Another trough level will be drawn prior to 4th dose of new regimen. Pharmacy Service will continue to monitor and adjust dosing as required. Follow-Up Labs: Trough Vancomycin Labs to be done on [date and time ordered]: 01/15/21 @0700
[2021-01-14 03:00] VITALS: RESP 18
[2021-01-14 05:41] VITALS: BP 127/56; PULSE 97; RESP 18; TEMP 37.1; O2SAT 99
[2021-01-14 06:01] LABS: Hematocrit 28.1 % (40-54); Mean Corp Hgb Conc 35.6 g/dL (32-36); Mean Corpuscular Hgb 35.1 pg (27.0-32.0); Mean Corpuscular Volume 98.6 fL (80-94); Mean Platelet Vol. 8.8 fl (6.2-12.0); POSITIVE COUNT YES; Platelet Count 154 K/mm3 (150-450); RBC Distribution Width CV 15.8 % (11.6-14.6); RBC Distribution Width SD 56.3 fl (35.1-43.9); Red Blood Count 2.85 M/mm3 (4.6-6.2)
[2021-01-14 06:10] LABS: Scan Indicated on CBC? Y/N YES- FLAGS NOTED; White Blood Count 1.2 K/mm3 (4.4-11.0)
[2021-01-14 07:01] LABS: Anion Gap 9 (5-15); BUN 14 mg/dL (7-18); BUN/Creat Ratio 16.5 RATIO (10-20); Calcium,Total 8.1 mg/dL (8.5-10.1); Chloride 111 mmol/L (98-107); Creatinine, Serum 0.85 mg/dL (0.70-1.30); EST Glomerular Filtration Rate 92 mL/min (>60); Est Glom Filt Rate - Afr Amer 111 mL/min (>60); Estimated Creatinine Clearance 49.83 ml/min; Glucose 76 mg/dL (74-106); Phosphorus 2.6 mg/dL (2.5-4.9); Potassium 3.8 mmol/L (3.5-5.1); Sodium Level 141 mmol/L (136-145)
--- NOTE | 2021-01-14 07:09 | PN.CC_ITS ---
Assessment & Plan Assessment/Plan (1) Infection, face: (2) Sepsis: (3) Encephalopathy: (4) Asthma: QUALIFIERS: Asthma severity: moderate Asthma persistence: persistent Asthma complication type: uncomplicated Qualified Code(s): J45.40 - Moderate persistent asthma, uncomplicated PLAN: RECOMMENDATIONS: 1. Continue antibiotics 2. Schedule Seroquel. Haldol as needed for agitation 3. Electrolyte repletion as indicated 4. Clarify goals of therapy 5. Hemodynamically stable on room air. Will sign off from a critical care perspective IMPRESSIONS: 1. Acute metabolic encephalopathy secondary to sepsis secondary to staph aureus cellulitis Patient's urinalysis is not suggestive of an infection from my perspective. However, patient's previous trauma does appear to have purulent material. Patient appears to be growing MRSA from his scalp lesion. We will continue with empiric antibiotics for now. Patient hemodynamically appears to be stable. Await results of sensitivity. Patient appears to be somewhat oversedated on 25 of Seroquel. Will decrease Seroquel during the day. Patient does not appear to have a respiratory source of infection. Patient also has significant deafness and some visual deficiencies that increase the risk for delirium/metabolic encephalopathy. 2. Acute kidney injury Resolved. Baseline creatinine appears to be approximately 0.8. Patient presented at 1.5. Patient did receive fluid resuscitation with improvement in renal function. No indication for renal replacement therapy at this time. 3. Leukopenia/anemia Patient has followed with hematology as an outpatient. Patient may have an element of bone marrow suppression secondary to problem #1. No indication for transfusion at this time. We will continue to monitor with daily labs. 4. Chronic compensated diastolic CHF/asthma/functional decline/malnutrition/deafness Complicates care, management, recovery and prognosis. Patient does not appear to be in acute exacerbation of CHF at this time. Patient also does not appear to have uncontrolled asthma. Albuterol as needed if clinically indica karyn. Dietitian will be consulted. Subjective Subjective Patient slept well overnight. No acute issues were reported. Patient has remained hemodynamically stable on room air. Patient has not required restraints for almost 24 hours. Patient denies any pain. Objective Data Objective Data Vital Signs: Vital Signs Temp Pulse Resp BP Pulse Ox 37.1 C 97 18 127/56 H 99 01/14/21 05:41 01/14/21 05:41 01/14/21 05:41 01/14/21 05:41 01/14/21 05:41 Oxygen Delivery Method Room Air Weight: 53.5 kg Body Mass Index (BMI) 17.8 Intake & Output: Intake and Output for Last 24 Hours 01/12/21 01/13/21 01/14/21 23:59 23:59 23:59 Intake Total 465 / 465 732 / 732 Output Total 350 / 350 Balance 464 / 464 382 / 382 Medical Nutrition Assessment Dietitian: Nutrition Therapy Diagnosis Start: 01/12/21 09:59 Freq: Status: Active Protocol: Document 01/13/21 09:57 BP (Rec: 01/13/21 09:58 BP [id number]) Nutrition Malnutrition Evidence of Malnutrition Exists Yes Evidenced By Suboptimal Energy Intake ( Severe),Weight Loss (Severe) Clinical Problem Acute Disease or Injury Related Malnutrition Etiology related to inadequate energy intake due to severe sepsis/ declining health over past month Signs/Symptoms as evidenced by suspected <75% po intake as pt reports 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 Status Active Problem Recommendation Dietitian Recommendations/Changes Continue ensure pudding or magic cup w/ meals for increased nutrition if consumed. Rec continue liberal Regular diet d/t signs/symptoms of malnutrition. Lab / Micro Data Result Diagrams: 01/14/21 05:45 01/14/21 05:45 Labs: Laboratory Results - last 24 hr 01/13/21 18:25: Vancomycin Trough 5.7 01/14/21 05:45: WBC 1.2 L*, RBC 2.85 L, Hgb 10.0 L, Hct 28.1 L, MCV 98.6 H, MCH 35.1 H, MCHC 35.6, RDW Std Deviation 56.3 H, RDW Coeff of Cris 15.8 H, Plt Count 154, MPV 8.8, Diff Path Review October01/14/21 05:45: Sodium 141, Potassium 3.8, Chloride 111 H, Carbon Dioxide 21.0, Anion Gap 9, BUN 14, Creatinine 0.85, Estim Creat Clear Calc 49.83, Est GFR (MDRD) Af Amer 111, Est GFR (MDRD) Non-Af 92, BUN/Creatinine Ratio 16.5, Glucose 76, Calcium 8.1 L, Phosphorus 2.6, Magnesium 2.0 Micro: Microbiology 01/11/21 14:05 Wound - Other Gram Stain - Final 01/11/21 14:05 Wound - Other Wound Culture - Final Meth. resistant Staph. aureus 01/11/21 14:05 Wound - Other Anaerobic Culture - Final No anaerobic bacteria isolated. 01/11/21 13:15 Urine, Catheterized Urine Culture - Final Culture exhibits no growth. 01/11/21 11:20 Blood Culture (Wb) - No Site/Description Given Blood Culture - Preliminary No growth in 48 hours. 01/11/21 11:05 Blood Culture (Wb) - Anticubital Left Blood Culture - Preliminary No growth in 48 hours. Physical Exam Const Orientation / Consciousness: oriented to person, confused and disoriented; Negative for oriented to place or oriented to time Eyes Eyes Narrative: Eyelids forced open Periorbital: periorbital findings abnormal right (Ecchymosis with slight swelling) Conjunctiva: conjunctiva normal Sclera: sclera normal Neck Neck Narrative: Trachea midline Resp normal respiratory effort, normal air movement, no use of accessory muscles and clear to auscultation bilaterally Cardio regular rate, regular rhythm, S1 normal heart sound, S2 normal heart sound, no rub and no gallops Heart Sounds: murmur systolic II/ low-pitched early Extremity normal to inspection and full ROM Skin Skin Narrative: Ecchymosis improving. Lesions: lesion noted Right forehead Narrative: Slight erythema, but improved co mpared to yesterday Psych Negative for thought process normal Activity / Motor Behavior: restless Mood & Affect: labile affect Charges/Coding Visit Charges Inpatient E&M: 52503 Subs Hosp L2
--- NOTE | 2021-01-14 08:45 | PCM.PN.HOSP ---
Subjective Subjective No issues overnight, changed his Seroquel and has not had to use restraints Objective Data Objective Data Vital Signs: Vital Signs Temp Pulse Resp BP Pulse Ox 98.8 F 97 18 127/56 H 99 01/14/21 05:41 01/14/21 05:41 01/14/21 05:41 01/14/21 05:41 01/14/21 05:41 Oxygen Delivery Method Room Air Weight: 117 lb 15.157 oz Body Mass Index (BMI) 17.8 Intake & Output: Intake and Output for Last 24 Hours 01/13/21 01/14/21 01/15/21 03:59 03:59 03:59 Intake Total 465 / 465 682 / 682 Output Total 350 / 350 Balance 464 / 464 332 / 332 Medical Nutrition Assessment Dietitian: Nutrition Therapy Diagnosis Start: 01/12/21 09:59 Freq: Status: Active Protocol: Document 01/13/21 09:57 BP (Rec: 01/13/21 09:58 BP [id number]) Nutrition Malnutrition Evidence of Malnutrition Exists Yes Evidenced By Suboptimal Energy Intake ( Severe),Weight Loss (Severe) Clinical Problem Acute Disease or Injury Related Malnutrition Etiology related to inadequate energy intake due to severe sepsis/ declining health over past month Signs/Symptoms as evidenced by suspected <75% po intake as pt reports 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 Status Active Problem Recommendation Dietitian Recommendations/Changes Continue ensure pudding or magic cup w/ meals for increased nutrition if consumed. Rec continue liberal Regular diet d/t signs/symptoms of malnutrition. Lab / Micro Data Result Diagrams: 01/14/21 05:45 01/14/21 05:45 Labs: Laboratory Results - last 24 hr 01/13/21 18:25: Vancomycin Trough 5.7 01/14/21 05:45: WBC 1.2 L*, RBC 2.85 L, Hgb 10.0 L, Hct 28.1 L, MCV 98.6 H, MCH 35.1 H, MCHC 35.6, RDW Std Deviation 56.3 H, RDW Coeff of Cris 15.8 H, Plt Count 154, MPV 8.8, Diff Path Review October01/14/21 05:45: Sodium 141, Potassium 3.8, Chloride 111 H, Carbon Dioxide 21.0, Anion Gap 9, BUN 14, Creatinine 0.85, Estim Creat Clear Calc 49.83, Est GFR (MDRD) Af Amer 111, Est GFR (MDRD) Non-Af 92, BUN/Creatinine Ratio 16.5, Glucose 76, Calcium 8.1 L, Phosphorus 2.6, Magnesium 2.0 Micro: Microbiology 01/11/21 14:05 Wound - Other Gram Stain - Final 01/11/21 14:05 Wound - Other Wound Culture - Final Meth. resistant Staph. aureus 01/11/21 14:05 Wound - Other Anaerobic Culture - Final No anaerobic bacteria isolated. 01/11/21 13:15 Urine, Catheterized Urine Culture - Final Culture exhibits no growth. 01/11/21 11:20 Blood Culture (Wb) - No Site/Description Given Blood Culture - Preliminary No growth in 48 hours. 01/11/21 11:05 Blood Culture (Wb) - Anticubital Left Blood Culture - Preliminary No growth in 48 hours. Physical Exam Const Orientation / Consciousness: confused and lethargic HEENT normocephalic Head and Scalp: laceration Eyes PERRL, EOMs intact bilaterally and conjunctivae normal Neck supple and no JVD Resp normal respiratory effort, no retractions, no use of accessory muscles and clear to auscultation bilaterally Auscultation: Negative for crackles, rales, rhonchi or wheezes Cardio regular rate, regular rhythm, S1 normal heart sound and S2 normal heart sound Heart Sounds: murmur GI normal to inspection, nondistended, normoactive bowel sounds, soft to palpation, non-tender and non-distended; Negative for hepatosplenomegaly Extremity no clubbing, cyanosis or edema Skin no rashes or lesions noted Neuro moves all extremities Psych Psych Narrative: Sedate and not interactive Assessment & Plan Assessment/Plan (1) Sepsis: (2) Acute UTI: (3) Infection, face: (4) Encephalopathy: PLAN: 1. Severe sepsis secondary to UTI versus facial cellulitis status post laceration/BRANDON/metabolic encephalopathy/transaminitis/functional decline and severe malnutrition -Significant mental status change, he is lethargic -Continue with antibiotics -BRANDON has resolved -LFTs are improving - would like to wait till Friday to reevaluate the need for hospice. 2. Chronic leukopenia and anemia -Being followed as an outpatient by Dr. 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 Chronic systolic and diastolic CHF/HTN/HLD -We will monitor his fluid status currently does not appear to be in exacerbation of his heart failure -We will continue to hold Coreg and lisinopril secondary to his kidney issues and lower blood pressure. DVT: Lovenox Charges/Coding Visit Charges Inpatient E&M: 54899 Subs Hosp L2
[2021-01-14] MEDS: Enoxaparin 40 MG/0.4 ML Syringe SC (11:51)
[2021-01-14] MEDS: Aspirin E.C. 81 MG Tablet PO (11:51)
[2021-01-14] MEDS: Senna Tablet 1 TABLET PO (11:51)
[2021-01-14] MEDS: Sodium Chloride 1 GM Tablet PO ×2 (11:51→20:59)
[2021-01-14] MEDS: Nystatin/Triamcin Cream Tube 1 APPLIC TOPICAL ×2 (11:52→20:59)
[2021-01-14 12:00] VITALS: BP 138/63; PULSE 87; RESP 18; TEMP 36.6; O2SAT 100
[2021-01-14] MEDS: Haloperidol Lactate 5 MG/ML Vial IV ×2 (17:47→22:53)
[2021-01-14 17:53] VITALS: BP 115/57; PULSE 100; RESP 16; TEMP 36.6; O2SAT 99
[2021-01-14] MEDS: QUEtiapine 25 MG Tablet PO (20:59)
[2021-01-14 23:12] VITALS: BP 158/83; PULSE 97; RESP 18; TEMP 36.8; O2SAT 98
[2021-01-15 05:00] VITALS: BP 150/96; PULSE 80; RESP 16; TEMP 36.2; O2SAT 98
[2021-01-15 07:34] LABS: Vancomycin, Trough Level 10.5 ug/mL (5.0-15.0)
[2021-01-15] MEDS: Aspirin E.C. 81 MG Tablet PO (07:50)
[2021-01-15] MEDS: Enoxaparin 40 MG/0.4 ML Syringe SC (07:50)
[2021-01-15] MEDS: Sodium Chloride 1 GM Tablet PO ×2 (07:54→19:47)
[2021-01-15] MEDS: Senna Tablet 1 TABLET PO (07:54)
[2021-01-15] MEDS: QUEtiapine 25 MG Tablet 12.5 MG PO (07:57)
--- NOTE | 2021-01-15 08:41 | PCM.RX.CS ---
Consult Pharmacy has been consulted to manage selected antiobiotic: Vancomycin Type of Consult: Follow-up Suspected Infection: Skin/Soft tissue Labs: Sodium 141 mmol/L (136-145) 01/14/21 05:45 Potassium 3.8 mmol/L (3.5-5.1) 01/14/21 05:45 Chloride 111 mmol/L (98-107) H 01/14/21 05:45 Carbon Dioxide 21.0 mmol/L (21.0-32.0) 01/14/21 05:45 Anion Gap 9 (5-15) 01/14/21 05:45 BUN 14 mg/dL (7-18) 01/14/21 05:45 Creatinine 0.85 mg/dL (0.70-1.30) 01/14/21 05:45 Est GFR (MDRD) Af Amer 111 mL/min (>60) 01/14/21 05:45 Est GFR (MDRD) Non-Af 92 mL/min (>60) 01/14/21 05:45 BUN/Creatinine Ratio 16.5 RATIO (10-20) 01/14/21 05:45 Glucose 76 mg/dL (74-106) 01/14/21 05:45 Vancomycin Trough 10.5 ug/mL (5.0-15.0) 01/15/21 07:00 Microbiology: Microbiology 01/11/21 14:05 Wound - Other Gram Stain - Final 01/11/21 14:05 Wound - Other Wound Culture - Final Meth. resistant Staph. aureus 01/11/21 14:05 Wound - Other Anaerobic Culture - Final No anaerobic bacteria isolated. 01/11/21 13:15 Urine, Catheterized Urine Culture - Final Culture exhibits no growth. 01/11/21 11:20 Blood Culture (Wb) - No Site/Description Given Blood Culture - Preliminary No growth in 48 hours. 01/11/21 11:05 Blood Culture (Wb) - Anticubital Left Blood Culture - Preliminary No growth in 48 hours. Goal Trough: 15-20 mcg/mL Pharmacy Plan for Drug Dosing: VANCOMYCIN LEVEL RECEIVED Current Vancomycin Dose: 750mg IV Q12hr Number of Doses Received: 3 Vancomycin Level: 10.5 Hours Since Last Dose: 11.5hr Renal Function: 0.85 Renal Function Trend: improved from admission labs Lab/Micro: WCx (+) MRSA Vancomycin Plan/Comments: Patient had trough drawn which resulted in a subtherapeutic value of 10.5 (goal 15-20). Patient's vancomycin dose will be increased to 1g IV Q12hrs to start 01/15/21 @1600. Will start dose 8 hours from last vancomycin administration, since pt had last 750mg dose after trough was drawn and is almost done infusing, rather than administering a supplemental dose at this time. Pending Level: 01/17/21 @0330, prior to 4th dose of new regimen per protocol. Pharmacy Service will continue to monitor and adjust dosing as required.
[2021-01-15 09:09] VITALS: BP 145/51; PULSE 86; RESP 16; TEMP 36.6; O2SAT 99
--- NOTE | 2021-01-15 09:35 | PN.HOSP_ITS ---
Subjective Subjective No issues overnight. Doing well. Still confused and has difficulty completing activities of ADLs including feeding himself. EEG did not demonstrate a seizure. Objective Data Objective Data Vital Signs: Vital Signs Temp Pulse Resp BP Pulse Ox 97.8 F 86 16 145/51 H 99 01/15/21 09:09 01/15/21 09:09 01/15/21 09:09 01/15/21 09:09 01/15/21 09:09 Oxygen Delivery Method Room Air Weight: 119 lb 0.794 oz Body Mass Index (BMI) 17.8 Intake & Output: Intake and Output for Last 24 Hours 01/14/21 01/15/21 01/16/21 03:59 03:59 03:59 Intake Total 682 / 682 830 / 830 265 / 265 Output Total 350 / 350 2 / 2 Balance 332 / 332 828 / 828 265 / 265 Medical Nutrition Assessment Dietitian: Nutrition Therapy Diagnosis Start: 01/12/21 09:59 Freq: Status: Active Protocol: Document 01/14/21 10:06 BP (Rec: 01/14/21 10:06 BP [id number]) Nutrition Malnutrition Evidence of Malnutrition Exists Yes Evidenced By Suboptimal Energy Intake ( Severe),Weight Loss (Severe) Clinical Problem Acute Disease or Injury Related Malnutrition Etiology related to inadequate energy intake due to severe sepsis/ declining health over past month Signs/Symptoms as evidenced by suspected <75% po intake as pt reports 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 Status Active Problem Recommendation Dietitian Recommendations/Changes Continue ensure pudding or magic cup w/ meals for increased nutrition if consumed. Will provide 120 ml Ensure enlive with [employer] Rec continue liberal Regular diet d/t signs/symptoms of malnutrition. Lab / Micro Data Result Diagrams: 01/14/21 05:45 01/14/21 05:45 Labs: Laboratory Results - last 24 hr 01/15/21 07:00: Vancomycin Trough 10.5 Micro: Microbiology 01/11/21 14:05 Wound - Other Gram Stain - Final 01/11/21 14:05 Wound - Other Wound Culture - Final Meth. resistant Staph. aureus 01/11/21 14:05 Wound - Other Anaerobic Culture - Final No anaerobic bacteria isolated. 01/11/21 13:15 Urine, Catheterized Urine Culture - Final Culture exhibits no growth. 01/11/21 11:20 Blood Culture (Wb) - No Site/Description Given Blood Culture - Preliminary No growth in 48 hours. 01/11/21 11:05 Blood Culture (Wb) - Anticubital Left Blood Culture - Preliminary No growth in 48 hours. Physical Exam Const alert Orientation / Consciousness: confused HEENT normocephalic HEENT Narrative: laceration to his right forehead Eyes PERRL, EOMs intact bilaterally and conjunctivae normal Neck supple and no JVD Resp normal respiratory effort, no retractions, no use of accessory muscles and clear to auscultation bilaterally Auscultation: Negative for crackles, rales, rhonchi or wheezes Cardio regular rate, regular rhythm, S1 normal heart sound and S2 normal heart sound Heart Sounds: murmur GI normal to inspection, nondistended, normoactive bowel sounds, soft to palpation, non-tender and non-distended; Negative for hepatosplenomegaly Skin no rashes or lesions noted Neuro moves all extremities Psych Appearance: grossly normal Assessment & Plan Assessment/Plan (1) Sepsis: (2) Acute UTI: (3) Infection, face: (4) Encephalopathy: PLAN: 1. Severe sepsis secondary to UTI versus facial cellulitis status post laceration/BRANDON/metabolic encephalopathy/transaminitis/functional decline and severe malnutrition -Becoming more alert but still has trouble with activities of daily living. Has to be fed -Continue with vancomycin for his likely MRSA wound on his forehead -BRANDON has resolved -LFTs are improving - would like to wait till Friday to reevaluate the need for hospice. 2. Chronic leukopenia and anemia -Being followed as an outpatient by Dr. 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 Chronic systolic and diastolic CHF/HTN/HLD -We will monitor his fluid status currently does not appear to be in exacerbation of his heart failure -We will continue to hold Coreg and lisinopril secondary to his kidney issues and lower blood pressure. DVT: Lovenox Charges/Coding Visit Charges Inpatient E&M: 49574 Subs Hosp L2
--- NOTE | 2021-01-15 11:11 | NURSING ---
wound photo: forehead
[2021-01-15 12:00] VITALS: PULSE 80
[2021-01-15] MEDS: Carvedilol 3.125 MG TABLET PO ×2 (12:08→19:47)
[2021-01-15] MEDS: Nystatin/Triamcin Cream Tube 1 APPLIC TOPICAL ×2 (12:08→19:47)
[2021-01-15 12:35] LABS: Pathologist Review Reviewed
[2021-01-15 14:00] VITALS: BP 157/49; PULSE 68; RESP 18; TEMP 36.6; O2SAT 97
[2021-01-15] MEDS: Vancomycin IV 1,000 MG/200 ML BAG 200 MG IV (16:06)
[2021-01-15] MEDS: Labetalol (Prefilled) 20 MG/4 ML IV (16:12)
[2021-01-15] MEDS: Ensure Clear 120 ML Liquid PO ×3 (16:17→19:48)
[2021-01-15] MEDS: Haloperidol Lactate 5 MG/ML Vial IV ×2 (16:54→21:02)
[2021-01-15 18:00] VITALS: BP 151/62; PULSE 73; RESP 16; TEMP 36.6; O2SAT 100
[2021-01-15] MEDS: QUEtiapine 25 MG Tablet PO (19:47)
[2021-01-15] MEDS: LORazepam 0.5 MG Tablet PO (19:47)
[2021-01-15] MEDS: 0.9% Saline Lock 10 ML Syringe IV ×2 (19:48→21:03)
[2021-01-15 20:00] VITALS: BP 152/68; PULSE 83; RESP 16; TEMP 36.8; O2SAT 100
[2021-01-16 02:00] VITALS: BP 166/53; PULSE 82; RESP 16; TEMP 36.8; O2SAT 100
[2021-01-16] MEDS: Vancomycin IV 1,000 MG/200 ML BAG 200 MG IV ×2 (04:46→17:34)
[2021-01-16 05:56] LABS: Absolute Lymphocyte Count 0.64 X10^3/uL (0.83-4.51); Absolute Neutrophil Count 0.4 X10^3/uL (2.0-7.7); Basophil# 0.01 X10^3/uL; Basophil% 0.9 % (0-1); Differential Indicated SCAN CRITERIA MET; Eosinophil# 0.05 X10^3/uL; Eosinophils% 4.3 % (0-5); Hematocrit 27.8 % (40-54); Hemoglobin 9.9 g/dL (13.0-16.5); Lymphocyte # 0.64 X10^3/ul (0.83-4.51); Lymphocyte % 54.7 % (19-41); Mean Corp Hgb Conc 35.6 g/dL (32-36); Mean Corpuscular Hgb 34.6 pg (27.0-32.0); Mean Corpuscular Volume 97.2 fL (80-94); Monocyte# 0.04 X10^3/uL; Monocyte% 3.4 % (0-10); NRBC Flagged by Analyzer 0 % (0-5); Neutrophil # 0.42 X10^3/uL (2.7-7.7); Neutrophil % 35.8 % (47-70); POSITIVE COUNT YES; POSITIVE DIFFERENTIAL YES; POSITIVE MORPHOLOGY YES; Platelet Count 156 K/mm3 (150-450); RBC Distribution Width CV 15.4 % (11.6-14.6); RBC Distribution Width SD 54.4 fl (35.1-43.9); Red Blood Count 2.86 M/mm3 (4.6-6.2)
[2021-01-16 05:57] LABS: White Blood Count 1.2 K/mm3 (4.4-11.0)
[2021-01-16 06:09] LABS: Anion Gap 6 (5-15); BUN 8 mg/dL (7-18); BUN/Creat Ratio 11.1 RATIO (10-20); Calcium,Total 7.9 mg/dL (8.5-10.1); Chloride 109 mmol/L (98-107); Creatinine, Serum 0.72 mg/dL (0.70-1.30); EST Glomerular Filtration Rate 111 mL/min (>60); Est Glom Filt Rate - Afr Amer 134 mL/min (>60); Estimated Creatinine Clearance 42.75 ml/min; Glucose 131 mg/dL (74-106); Potassium 3.2 mmol/L (3.5-5.1); Sodium Level 140 mmol/L (136-145)
[2021-01-16 08:00] VITALS: BP 128/57; PULSE 82; RESP 18; TEMP 36.6; O2SAT 981
[2021-01-16 08:12] LABS: Magnesium 1.6 mg/dL (1.6-2.6); Phosphorus 2.1 mg/dL (2.5-4.9)
[2021-01-16] MEDS: Sodium Chloride 1 GM Tablet PO ×2 (09:46→21:05)
[2021-01-16] MEDS: Enoxaparin 40 MG/0.4 ML Syringe SC (09:46)
[2021-01-16] MEDS: QUEtiapine 25 MG Tablet 12.5 MG PO (09:46)
[2021-01-16] MEDS: Aspirin E.C. 81 MG Tablet PO (09:47)
[2021-01-16] MEDS: Carvedilol 3.125 MG TABLET PO ×2 (09:47→21:05)
[2021-01-16] MEDS: Senna Tablet 1 TABLET PO (09:48)
[2021-01-16] MEDS: Nystatin/Triamcin Cream Tube 1 APPLIC TOPICAL ×2 (09:48→21:05)
[2021-01-16] MEDS: Ensure Clear 120 ML Liquid PO ×3 (09:48→21:04)
--- NOTE | 2021-01-16 10:48 | PN.HOSP_ITS ---
Subjective Subjective Disoriented but alert today. No issues overnight Objective Data Objective Data Vital Signs: Vital Signs Temp Pulse Resp BP Pulse Ox 97.8 F 82 18 128/57 H 981 01/16/21 08:00 01/16/21 08:00 01/16/21 08:00 01/16/21 08:00 01/16/21 08:00 Oxygen Delivery Method Room Air Weight: 119 lb 0.794 oz Body Mass Index (BMI) 17.8 Intake & Output: Intake and Output for Last 24 Hours 01/15/21 01/16/21 01/17/21 03:59 03:59 03:59 Intake Total 830 / 830 865 / 865 200 / 200 Output Total 2 / 2 700 / 700 Balance 828 / 828 165 / 165 200 / 200 Medical Nutrition Assessment Dietitian: Nutrition Therapy Diagnosis Start: 01/12/21 09:59 Freq: Status: Active Protocol: Document 01/14/21 10:06 BP (Rec: 01/14/21 10:06 BP [id number]) Nutrition Malnutrition Evidence of Malnutrition Exists Yes Evidenced By Suboptimal Energy Intake ( Severe),Weight Loss (Severe) Clinical Problem Acute Disease or Injury Related Malnutrition Etiology related to inadequate energy intake due to severe sepsis/ declining health over past month Signs/Symptoms as evidenced by suspected <75% po intake as pt reports 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 Status Active Problem Recommendation Dietitian Recommendations/Changes Continue ensure pudding or magic cup w/ meals for increased nutrition if consumed. Will provide 120 ml Ensure enlive with medpass. Rec continue liberal Regular diet d/t signs/symptoms of malnutrition. Lab / Micro Data Result Diagrams: 01/16/21 05:45 01/16/21 05:45 Labs: Laboratory Results - last 24 hr 01/14/21 05:45: Diff Path Review Reviewed 01/16/21 05:45: WBC 1.2 L*, RBC 2.86 L, Hgb 9.9 L, Hct 27.8 L, MCV 97.2 H, MCH 34.6 H, MCHC 35.6, RDW Std Deviation 54.4 H, RDW Coeff of Cris 15.4 H, Plt Count 156, MPV 9.0, Immature Gran % (Auto) 0.900, Neut % (Auto) 35.8 L, Lymph % (Auto) 54.7 H, Beauregard % (Auto) 3.4, Eos % (Auto) 4.3, Baso % (Auto) 0.9, Absolute Neuts (auto) 0.4 L, Absolute Lymphs (auto) 0.64 L, Nucleated RBC % 0, Diff Path Review October01/16/21 05:45: Sodium 140, Potassium 3.2 L, Chloride 109 H, Carbon Dioxide 25.0, Anion Gap 6, BUN 8, Creatinine 0.72, Estim Creat Clear Calc 42.75, Est GFR (MDRD) Af Amer 134, Est GFR (MDRD) Non-Af 111, BUN/Creatinine Ratio 11.1, Glucose 131 H, Calcium 7.9 L 01/16/21 05:45: Phosphorus 2.1 L, Magnesium 1.6 Micro: Microbiology 01/11/21 14:05 Wound - Other Gram Stain - Final 01/11/21 14:05 Wound - Other Wound Culture - Final Meth. resistant Staph. aureus 01/11/21 14:05 Wound - Other Anaerobic Culture - Final No anaerobic bacteria isolated. 01/11/21 13:15 Urine, Catheterized Urine Culture - Final Culture exhibits no growth. 01/11/21 11:20 Blood Culture (Wb) - No Site/Description Given Blood Culture - Preliminary No growth in 48 hours. 01/11/21 11:05 Blood Culture (Wb) - Anticubital Left Blood Culture - Preliminary No growth in 48 hours. Physical Exam Const alert Orientation / Consciousness: confused and lethargic HEENT normocephalic Eyes PERRL, EOMs intact bilaterally and conjunctivae normal Neck supple and no JVD Resp normal respiratory effort, no retractions, no use of accessory muscles and clear to auscultation bilaterally Auscultation: Negative for crackles, rales, rhonchi or wheezes Cardio regular rate, regular rhythm, S1 normal heart sound and S2 normal heart sound Heart Sounds: murmur GI normal to inspection, nondistended, normoactive bowel sounds, soft to palpation, non-tender and non-distended; Negative for hepatosplenomegaly Extremity no clubbing, cyanosis or edema Skin no rashes or lesions noted Neuro moves all extremities Psych Psych Narrative: Sedate and not interactive Appearance: grossly normal Assessment & Plan Assessment/Plan (1) Sepsis: (2) Acute UTI: (3) Infection, face: (4) Encephalopathy: PLAN: 1. Severe sepsis secondary to UTI versus facial cellulitis status post laceration/BRANDON/metabolic encephalopathy/transaminitis/functional decline and severe malnutrition -Becoming more alert but still has trouble with activities of daily living. Has to be fed -Continue with vancomycin for his MRSA wound on his forehead -BRANDON has resolved -LFTs are improving -We will discuss his situation with his this afternoon. 2. Chronic leukopenia and anemia -Being followed as an outpatient by Dr. 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 Chronic systolic and diastolic CHF/HTN/HLD -We will monitor his fluid status currently does not appear to be in e xacerbation of his heart failure -We will continue to hold Coreg and lisinopril secondary to his kidney issues and lower blood pressure. DVT: Lovenox Charges/Coding Visit Charges Inpatient E&M: 54352 Subs Hosp L2
--- NOTE | 2021-01-16 10:51 | CASEMGMT ---
SYDNIE called patient's and asked if she has decided on a facility. She said she has not. She was waiting as she is going to meet with the doctor today at 1p then she was coming to the hospital to meet with the hospitalist. She was going to decide after that. She said she really wants [facility]. SYDNIE reminded her that a referral was faxed before and they declined him. She said she didn't know if a referral could be faxed again. SYDNIE told her we will get in touch with her either later today or tomorrow. Marge Asher [employer]
[2021-01-16] MEDS: Potassium Chloride Oral Soln 20 MEQ/15 ML UDC PO (12:01)
[2021-01-16 12:18] LABS: Pathologist Review Reviewed
[2021-01-16 14:00] VITALS: BP 136/50; PULSE 80; RESP 18; TEMP 36.6; O2SAT 100
[2021-01-16] MEDS: Haloperidol Lactate 5 MG/ML Vial IV (19:01)
[2021-01-16 20:57] VITALS: BP 170/56; PULSE 81; RESP 18; TEMP 36.5; O2SAT 100
[2021-01-16] MEDS: Labetalol (Prefilled) 20 MG/4 ML IV (21:04)
[2021-01-16] MEDS: QUEtiapine 25 MG Tablet PO (21:05)
[2021-01-16] MEDS: LORazepam 0.5 MG Tablet PO (21:05)
[2021-01-16] MEDS: 0.9% Saline Lock 10 ML Syringe IV (21:06)
[2021-01-16 21:56] VITALS: BP 129/75; PULSE 88; RESP 18; TEMP 36.6; O2SAT 100
[2021-01-17 03:03] VITALS: BP 122/62; PULSE 84; RESP 16; TEMP 36.6; O2SAT 98
[2021-01-17] MEDS: Vancomycin IV 1,000 MG/200 ML BAG 200 MG IV (04:10)
[2021-01-17 04:17] LABS: Anion Gap 7 (5-15); BUN 6 mg/dL (7-18); Calcium,Total 8.1 mg/dL (8.5-10.1); Chloride 107 mmol/L (98-107); Creatinine, Serum 0.75 mg/dL (0.70-1.30); EST Glomerular Filtration Rate 105 mL/min (>60); Est Glom Filt Rate - Afr Amer 128 mL/min (>60); Estimated Creatinine Clearance 42.75 ml/min; Glucose 104 mg/dL (74-106); Magnesium 2.1 mg/dL (1.6-2.6); Phosphorus 2.8 mg/dL (2.5-4.9); Potassium 3.9 mmol/L (3.5-5.1); Sodium Level 139 mmol/L (136-145)
[2021-01-17 04:29] LABS: Vancomycin, Trough Level 23.2 ug/mL (5.0-15.0)
--- NOTE | 2021-01-17 05:21 | PCM.RX.CS ---
Consult Pharmacy has been consulted to manage selected antiobiotic: Vancomycin Type of Consult: Follow-up Suspected Infection: Sepsis Prior Doses of Antibiotics Received/Current Regimen: Medications Discontinued Medications Vancomycin HCl (Vancomycin) 1,000 mg in 200 mls @ 200 mls/hr IV Q12H [facility] Last Admin: 01/17/21 05:10 Dose: Infused Labs: Sodium 139 mmol/L (136-145) 01/17/21 03:40 Potassium 3.9 mmol/L (3.5-5.1) 01/17/21 03:40 Chloride 107 mmol/L (98-107) 01/17/21 03:40 Carbon Dioxide 25.0 mmol/L (21.0-32.0) 01/17/21 03:40 Anion Gap 7 (5-15) 01/17/21 03:40 BUN 6 mg/dL (7-18) L 01/17/21 03:40 Creatinine 0.75 mg/dL (0.70-1.30) 01/17/21 03:40 Est GFR (MDRD) Af Amer 128 mL/min (>60) 01/17/21 03:40 Est GFR (MDRD) Non-Af 105 mL/min (>60) 01/17/21 03:40 BUN/Creatinine Ratio 8.0 RATIO (10-20) L 01/17/21 03:40 Glucose 104 mg/dL (74-106) 01/17/21 03:40 Vancomycin Trough 23.2 ug/mL (5.0-15.0) H 01/17/21 03:40 Microbiology: Microbiology 01/11/21 14:05 Wound - Other Gram Stain - Final 01/11/21 14:05 Wound - Other Wound Culture - Final Meth. resistant Staph. aureus 01/11/21 14:05 Wound - Other Anaerobic Culture - Final No anaerobic bacteria isolated. 01/11/21 13:15 Urine, Catheterized Urine Culture - Final Culture exhibits no growth. 01/11/21 11:20 Blood Culture (Wb) - No Site/Description Given Blood Culture - Preliminary No growth in 48 hours. 01/11/21 11:05 Blood Culture (Wb) - Anticubital Left Blood Culture - Preliminary No growth in 48 hours. Weight used for dosin kg Estimated Creatinine Clearance: 43 Goal Trough: 15-20 mcg/mL Pharmacy Plan for Drug Dosing: Vancomycin trough level was high at 23.2. Will draw a random level 01/17/21 @1600 to determine further dosing. Pharmacy Service will continue to monitor and adjust dosing as required. Follow-Up Labs: Trough Vancomycin - random Labs to be done on [date and time ordered]: 01/17/21 @1600
--- NOTE | 2021-01-17 07:54 | PN.HOSP_ITS ---
Subjective Subjective The patient is lethargic, does not participate in conversation, hard of hearing. Has right forehead laceration dressing. Confused and disoriented. 3 of multiple falls Objective Data Objective Data Vital Signs: Vital Signs Temp Pulse Resp BP Pulse Ox 97.8 F 84 16 122/62 H 98 01/17/21 03:03 01/17/21 03:03 01/17/21 03:03 01/17/21 03:03 01/17/21 03:03 Oxygen Delivery Method Room Air Weight: 119 lb 0.794 oz Body Mass Index (BMI) 17.8 Intake & Output: Intake and Output for Last 24 Hours 01/15/21 01/16/21 01/17/21 23:59 23:59 23:59 Intake Total 765 / 865 1301 / 1301 320 / 320 Output Total 550 / 700 250 / 250 Balance 215 / 165 1051 / 1051 320 / 320 Medical Nutrition Assessment Dietitian: Nutrition Therapy Diagnosis Start: 01/12/21 09:59 Freq: Status: Active Protocol: Document 01/14/21 10:06 BP (Rec: 01/14/21 10:06 BP [id number]) Nutrition Malnutrition Evidence of Malnutrition Exists Yes Evidenced By Suboptimal Energy Intake ( Severe),Weight Loss (Severe) Clinical Problem Acute Disease or Injury Related Malnutrition Etiology related to inadequate energy intake due to severe sepsis/ declining health over past month Signs/Symptoms as evidenced by suspected <75% po intake as pt reports 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 Status Active Problem Recommendation Dietitian Recommendations/Changes Continue ensure pudding or magic cup w/ meals for increased nutrition if consumed. Will provide 120 ml Ensure enlive with medpass. Rec continue liberal Regular diet d/t signs/symptoms of malnutrition. Lab / Micro Data Result Diagrams: 01/16/21 05:45 01/17/21 03:40 Labs: Laboratory Results - last 24 hr 01/16/21 05:45: Diff Path Review Reviewed 01/16/21 05:45: Phosphorus 2.1 L, Magnesium 1.6 01/17/21 03:40: Vancomycin Trough 23.2 H 01/17/21 03:40: Sodium 139, Potassium 3.9, Chloride 107, Carbon Dioxide 25.0, Anion Gap 7, BUN 6 L, Creatinine 0.75, Estim Creat Clear Calc 42.75, Est GFR (MDRD) Af Amer 128, Est GFR (MDRD) Non-Af 105, BUN/Creatinine Ratio 8.0 L, Glucose 104, Calcium 8.1 L, Phosphorus 2.8, Magnesium 2.1 Micro: Microbiology 01/11/21 14:05 Wound - Other Gram Stain - Final 01/11/21 14:05 Wound - Other Wound Culture - Final Meth. resistant Staph. aureus 01/11/21 14:05 Wound - Other Anaerobic Culture - Final No anaerobic bacteria isolated. 01/11/21 13:15 Urine, Catheterized Urine Culture - Final Culture exhibits no growth. 01/11/21 11:20 Blood Culture (Wb) - No Site/Description Given Blood Culture - Preliminary No growth in 48 hours. 01/11/21 11:05 Blood Culture (Wb) - Anticubital Left Blood Culture - Preliminary No growth in 48 hours. Physical Exam Narrative General: Nonverbal. Spontaneous eye opening. Follows to simple command HEENT: Hard of hearing. Dry dressing/wound over forehead. PERRLA, EOMI, Normocephalic Oral: Tongue coated with white patch. No Gingival or Mucosal Lesions/ Ulcerations Neck: Supple, No JVD, Negative Carotid Bruits Lungs: Air entry diminished in bilateral lung bases. No crepitation/rhonchi Cardiovascular: Regular rate, Regular Rhythm, Normal S1, Normal S2, ejection systolic murmur right second ICS Abdomen: Bowel Sounds Present, Soft, Non Tender, Non-Distended : Urinary incontinence. No catheter. No renal angle tenderness. No suprapubic tenderness. Extremities: No edema, Capillary Refill Less than 3 Seconds Skin: No rashes, No breakdown Musculoskeletal: No Tenderness to Palpation of Joints or Extremities Neurological: Deep Tendon Reflexes 2+/4 and Symmetrical, muscle strength decreased at major joints Psych/Mental Status: Dementia. Assessment & Plan Assessment/Plan (1) Sepsis: (2) Acute UTI: (3) Infection, face: (4) Encephalopathy: PLAN: 1. Severe sepsis facial MRSA cellulitis status post laceration: Patient is in ICU. UTI ruled out with negative urine culture. Patient on vancomycin. Blood test x2 are negative. Transaminases, liver chemistry improved. 2. Acute metabolic encephalopathy, functional decline on baseline possible dementia: Patient has severe malnutrition. Palliative/hospice care is involved. Palliative care meeting at today's afternoon. Limited ADL and needs feeding. 3. BRANDON probably prerenal/severe sepsis: Patient admitted with creatinine 1.5 with baseline creatinine approximately 2.8. Patient received fluid resuscitation and improved. BRANDON resolved. 4. Chronic leukopenia and anemia: Patient follows Dr. Jhaveri as an outpatient. 5. SIADH: Patient being followed by radiation officer. On 1500 fluid restriction. 6 chronic systolic and diastolic CHF, hypertension dyslipidemia: Patient functional decline, limited ADL and severe malnutrition takes precedence over chronic comorbidities. DVT: Lovenox CODE STATUS DNR CCA no intubation Charges/Coding Visit Charges Inpatient E&M: 96891 [facility] Hosp L3
--- NOTE | 2021-01-17 08:41 | CASEMGMT ---
Addendum entered by Kandy Lowry 01/17/21 11:22: SW spoke w/ in regard to plan. She states that they are leaning toward hospice, and the meeting today is to help them decide. SW asked about where they would like pt to go at discharge. She states that after speaking w/her daughter in law, she is now thinking about taking pt home, concerned about COVID. Daughter in law and son work, as per however. states was thinking about hiring extra help. She states when she was her yesterday however it took the nurse and an aide to get pt back to bed, and is not certain she can do this. We spoke about whether or not caring for pt at home is realistic for . would consider [facility] or [facility]. SW reminded we did try those facilities last time he was here and they both said no. SW did explain did send a referral to [facility] already however and can send a referral to [facility]. SW explained that visitation at [facility] is open for hospice patients, states understanding, she was unaware--she had been concerned about restrictions. SW explained will also make a referral to [facility] and find out about their visitation. also asked if [facility] can go into [place], SW explained will find out. also mentioned [facility] though states she knows nothing about this facility. SW called [facility], [facility] can go into [place], and visitation is open for hospice pts. They will review referral, SW faxed referral. SW will continue to follow. SUMIT [facility] Addendum entered by Kandy Lowry 01/17/21 11:04: Pt's called back and left a message, SW called back and left a message. SW spoke w/hospice and w/bedside RN, plan now is for family to meet w/hospice at 4:15pm. [facility] Wh[facility] Addendum entered by Kandy Lowry 01/17/21 10:41: SW spoke w/Victorino from hospice, family is meeting with Corin at 3pm. SW called [facility], faxed referral. SW called , message left. SUMIT Wh[facility] Original Note: As per RN, would like to speak w/hospice today. SW spoke w/Abril with hospice, she will call about setting up a meeting, tentatively the meeting will be late this morning. Abril to let SYDNIE know if the meeting is arranged for a time other than later this morning. SUMIT Whiting
[2021-01-17] MEDS: Aspirin E.C. 81 MG Tablet PO (08:44)
[2021-01-17 08:45] VITALS: BP 161/59; PULSE 83; RESP 18; TEMP 35.9; O2SAT 100
[2021-01-17] MEDS: Ensure Clear 120 ML Liquid PO ×3 (08:45→17:40)
[2021-01-17] MEDS: Carvedilol 3.125 MG TABLET PO ×2 (10:51→20:37)
[2021-01-17] MEDS: Enoxaparin 40 MG/0.4 ML Syringe SC (10:51)
[2021-01-17] MEDS: Nystatin/Triamcin Cream Tube 1 APPLIC TOPICAL ×2 (10:52→20:37)
[2021-01-17] MEDS: QUEtiapine 25 MG Tablet 12.5 MG PO (10:52)
[2021-01-17] MEDS: Senna Tablet 1 TABLET PO (10:52)
[2021-01-17] MEDS: Sodium Chloride 1 GM Tablet PO ×2 (10:53→20:37)
--- NOTE | 2021-01-17 13:44 | CASEMGMT ---
Addendum entered by Kandy Lowry 01/17/21 14:41: SW received a message back from inquiring if pt would be coming skilled or on hospice, and that if pt comes hospice private pay they would need 30 days paid up front. SW called back and left her a message, explaining family is meeting w/hospice today at 4:15 to help determine what they are going to do, and most likely SW will need to follow up w/them tomorrow. SW did inquire the cost for 30 days, so SW can let the family know. SW called , let her know that neither facility has given a definite answer on if they can take her , it will likely depend on whether family decides on hospice or not. states understanding. SW also explained if pt does go to a alf on hospice, it will be private pay. states understanding. SW explained will follow up w/her tomorrow once they have made a decision, as they are meeting w/hospice at 4:15 and SW will not be here when their meeting is over. SW explained if the plan is indeed alf w/hospice, SW will follow up w/her tomorrow to find out cost of alf and which facility may take pt. states understanding. SUMIT Wh[facility] Addendum entered by Kandy Lowry 01/17/21 13:56: SW called [facility], message left for in admissions. [facility] Original Note: SW spoke w/Brittney from [facility], she is not sure if they can take pt, it will depend on whether or not the is agreeable to hospice and what their bed availability is. SUM[facility] Wh[facility]
[2021-01-17 14:40] VITALS: BP 124/82; PULSE 76; RESP 18; TEMP 35.9; O2SAT 97
[2021-01-17 18:25] LABS: Vancomycin, Random Level 22.1 ug/mL (0.0-15.0)
--- NOTE | 2021-01-17 19:32 | PCM.RX.CS ---
Consult Pharmacy has been consulted to manage selected antiobiotic: Vancomycin Type of Consult: Follow-up Labs: Sodium 139 mmol/L (136-145) 01/17/21 03:40 Potassium 3.9 mmol/L (3.5-5.1) 01/17/21 03:40 Chloride 107 mmol/L (98-107) 01/17/21 03:40 Carbon Dioxide 25.0 mmol/L (21.0-32.0) 01/17/21 03:40 Anion Gap 7 (5-15) 01/17/21 03:40 BUN 6 mg/dL (7-18) L 01/17/21 03:40 Creatinine 0.75 mg/dL (0.70-1.30) 01/17/21 03:40 Est GFR (MDRD) Af Amer 128 mL/min (>60) 01/17/21 03:40 Est GFR (MDRD) Non-Af 105 mL/min (>60) 01/17/21 03:40 BUN/Creatinine Ratio 8.0 RATIO (10-20) L 01/17/21 03:40 Glucose 104 mg/dL (74-106) 01/17/21 03:40 Vancomycin Trough 23.2 ug/mL (5.0-15.0) H 01/17/21 03:40 Random Vancomycin 22.1 ug/mL (0.0-15.0) H 01/17/21 17:55 Microbiology: Microbiology 01/11/21 14:05 Wound - Other Gram Stain - Final 01/11/21 14:05 Wound - Other Wound Culture - Final Meth. resistant Staph. aureus 01/11/21 14:05 Wound - Other Anaerobic Culture - Final No anaerobic bacteria isolated. 01/11/21 13:15 Urine, Catheterized Urine Culture - Final Culture exhibits no growth. 01/11/21 11:20 Blood Culture (Wb) - No Site/Description Given Blood Culture - Preliminary No growth in 48 hours. 01/11/21 11:05 Blood Culture (Wb) - Anticubital Left Blood Culture - Preliminary No growth in 48 hours. Goal Trough: 15-20 mcg/mL Pharmacy Plan for Drug Dosing: VANCOMYCIN LEVEL RECEIVED Current Vancomycin Dose: ON HOLD- LAST DOSE ADMINISTERED 01/17 @9424 Number of Doses Received: ON HOLD Vancomycin Level: 22.1 Hours Since Last Dose: 24HR Renal Function: 0.75 Renal Function Trend: STABLE Lab/Micro: PT (+) MRSA Vancomycin Plan/Comments: Patient had another trough drawn which was still elevated at a value of 22.1 (goal 15-20). Will hold further dosing and obtain random level tomorrow morning and assess dosing at that time. Pending Level: *RANDOM* level 01/18/21 @0600 Pharmacy Service will continue to monitor and adjust dosing as required.
[2021-01-17] MEDS: QUEtiapine 25 MG Tablet PO (20:37)
[2021-01-17 20:42] VITALS: BP 153/70; PULSE 102; RESP 18; TEMP 36.8; O2SAT 99
[2021-01-17] MEDS: LORazepam 0.5 MG Tablet PO (23:39)
[2021-01-18 02:34] VITALS: BP 153/87; PULSE 104; RESP 18; TEMP 36.6; O2SAT 99
[2021-01-18 06:52] LABS: Vancomycin, Random Level 18.8 ug/mL (0.0-15.0)
--- NOTE | 2021-01-18 07:40 | PCM.RX.CS ---
Consult Pharmacy has been consulted to manage selected antiobiotic: Vancomycin Type of Consult: Follow-up Labs: Sodium 139 mmol/L (136-145) 01/17/21 03:40 Potassium 3.9 mmol/L (3.5-5.1) 01/17/21 03:40 Chloride 107 mmol/L (98-107) 01/17/21 03:40 Carbon Dioxide 25.0 mmol/L (21.0-32.0) 01/17/21 03:40 Anion Gap 7 (5-15) 01/17/21 03:40 BUN 6 mg/dL (7-18) L 01/17/21 03:40 Creatinine 0.75 mg/dL (0.70-1.30) 01/17/21 03:40 Est GFR (MDRD) Af Amer 128 mL/min (>60) 01/17/21 03:40 Est GFR (MDRD) Non-Af 105 mL/min (>60) 01/17/21 03:40 BUN/Creatinine Ratio 8.0 RATIO (10-20) L 01/17/21 03:40 Glucose 104 mg/dL (74-106) 01/17/21 03:40 Vancomycin Trough 23.2 ug/mL (5.0-15.0) H 01/17/21 03:40 Random Vancomycin 18.8 ug/mL (0.0-15.0) H 01/18/21 06:05 Microbiology: Microbiology 01/11/21 11:05 Blood Culture (Wb) - Anticubital Left Blood Culture - Final No growth in 5 days. 01/11/21 11:20 Blood Culture (Wb) - No Site/Description Given Blood Culture - Final No growth in 5 days. 01/11/21 14:05 Wound - Other Gram Stain - Final 01/11/21 14:05 Wound - Other Wound Culture - Final Meth. resistant Staph. aureus 01/11/21 14:05 Wound - Other Anaerobic Culture - Final No anaerobic bacteria isolated. 01/11/21 13:15 Urine, Catheterized Urine Culture - Final Culture exhibits no growth. Goal Trough: 15-20 mcg/mL Pharmacy Plan for Drug Dosing: VANCOMYCIN LEVEL RECEIVED Current Vancomycin Dose: ON HOLD- LAST LEIVA 1G ON 01/17/21 @0410 Number of Doses Received: ON HOLD Vancomycin Level: 18.8 Hours Since Last Dose: 24HR Renal Function: NNL Renal Function Trend:NNL Lab/Micro: NO NEW MICRO, (+) MRSA Vancomycin Plan/Comments: Pt trough within therapeutic range of 15-20. Will restart vancomycin at this time. Will place pt on 1g IV Q24hr to start 01/17/21 @0800 Pending Level: 01/20/21 @0730, prior to 3rd dose of new regimen per protocol. Pharmacy Service will continue to monitor and adjust dosing as required.
[2021-01-18 08:28] VITALS: BP 96/82; PULSE 95; RESP 20; TEMP 36.5; O2SAT 95
[2021-01-18 08:32] VITALS: PULSE 100
[2021-01-18] MEDS: Carvedilol 3.125 MG TABLET PO ×2 (08:36→20:40)
[2021-01-18] MEDS: Sodium Chloride 1 GM Tablet PO ×2 (08:36→20:40)
[2021-01-18] MEDS: Aspirin E.C. 81 MG Tablet PO (08:36)
[2021-01-18] MEDS: Enoxaparin 40 MG/0.4 ML Syringe SC (08:37)
[2021-01-18] MEDS: QUEtiapine 25 MG Tablet 12.5 MG PO (08:40)
[2021-01-18] MEDS: Ensure Clear 120 ML Liquid PO ×4 (08:40→20:49)
[2021-01-18] MEDS: Senna Tablet 1 TABLET PO (08:40)
--- NOTE | 2021-01-18 08:55 | CASEMGMT ---
Addendum entered by Kadny Lowry 01/18/21 10:40: [facility] requested progress notes, SW faxed progress notes from the last four days. Hospitalist here to call physician at hospice shortly. SUMIT Whiting Addendum entered by Kandy Lowry 01/18/21 09:32: Our physician is to call the physician at [facility] when able. [facility] had also called last evening and left a message inquiring about pt's medications. SW called [facility] back, message left with requested information, and SW also inquired if they would take pt on hospice should this still be something would want to consider. SW will continue to follow. SUMIT Whiting Original Note: SW spoke w/[facility], Verito states plan is for pt to go home with hospice, and family had indicated they could have everything ready for pt on the weekend. SW spoke w/physician, he states pt is ready for discharge. SW called , she confirmed plan is for pt to go home w/hospice. SW explained that pt is ready for discharge however, and not able to stay here all weekend. states that the direct customer service representative from hospice yesterday had indicated pt may be able to go to the inpatient unit while waiting for a bed. SW called hospice back, spoke w/Verito and then Abril. She states for our physician to call their physician regarding pt. SW will let our physician know to call their physician. SUMIT Whiting
[2021-01-18] MEDS: Nystatin/Triamcin Cream Tube 1 APPLIC TOPICAL ×2 (10:49→20:40)
[2021-01-18] MEDS: Doxycycline 100 MG CAPSULE PO ×2 (10:49→20:40)
--- NOTE | 2021-01-18 10:50 | CASEMGMT ---
Addendum entered by Kandy Lowry 01/18/21 12:52: SW spoke w/ from [facility], they do not have any bed availability and do not anticipate any availability for the next five days. SYDNIE called pt's back, explained to her [facility] has no beds, and [facility] does not feel they can manage pt's care. SW asked about pt returning to [facility] on hospice should [facility] be able to take pt--as is thinking it would be just for a few days. Also SW pointed out to that if pt is having difficult behaviors, if he is on hospice, [facility] would be able to call hospice for additional supports around this. states understanding and states she was also thinking about maybe just having the pt return to [facility] if they would take him. SW explained will call [facility] to see if they are able to take pt. SW called [facility] again, spoke karime/Gala. She states that she can review the paperwork and will let SW know if they can take pt. Clinical information faxed, SYDNIE will continue to follow, waiting now for call back from [facility]. SUMIT Whiting Addendum entered by Kandy Lowry 01/18/21 11:56: Verito from [facility] called, confirmed that the IPU will not be taking pt. She is going to visit and have her sign papers. SYDNIE will call Verito once SW knows which snf will take pt. SW called [facility], spoke karime/aGla. [facility] would consider taking pt back again on hospice. SW waiting for a call back from at [facility]. SUMIT Whiting Addendum entered by Kandy Lowry 01/18/21 11:18: [facility] cannot take pt as they are concerned that he may get agitated and try to get out of bed. They may consider him if he were to go ti the IPU for a week first. As per Brittney they have high aquity at this time and cannot take pt. SW reiterated that pt is getting medication and he is not agitated at present, and in fact the IPU would not take pt as he is stable. The answer is still no for [facility] however. SUMIT Whiting Original Note: SW spoke w/Dr. Kaiser, pt is not accepted into the inpt unit for hospice, as per the physician at [facility]. SW called pt's , explained to her that pt cannot go from here to the inpatient hospice unit(IPU), as he does not qualify for the IPU. SW explained pt is ready for discharge, inquired if she would want to take him home today or have him go to a snf for a few days so can arrange things for home. states she is definitely not ready to take pt home today, and may be agreeable for pt to go to SNF for hospice while she works on getting things arranged for home. Her choices for SNF continue to be [facility] and [facility]. SW explained will call both facilities and see if either one would be able to take him. SW called [facility], spoke w/Brittney. She will check with the director pharmacovigilance and let this SW know. SYDNIE called [facility], message left for . SUMIT Whiting
--- NOTE | 2021-01-18 10:59 | DS.PCM_ITS ---
Providers Date of Admission: 01/11/21 Primary Care Physician: Dr. Jamie Yang MD Consultations 01/11/21 15:34 Consult: Hospice / Palliative Care Routine Consulting Provider: [facility] Reason for Consult: Decreasing Functional status EMERGENT Consult: No Notified: Yes Date Notified: 01/12/21 Time Notified: 10:00 Method of Notification: Page Consult: Manager Strategy & Account / Pulmonary Medicine Routine Consulting Provider: Pulmonary Medicine [facility] Reason for Consult: severe sepsis EMERGENT Consult: No Notified: Yes Date Notified: 01/11/21 Time Notified: 15:30 Method of Notification: Verbal 01/12/21 11:07 Consult: Onc/Wound/keysmith Routine Comment: Reason For Visit: SEVERE SEPSIS Diagnosis Discharge Diagnosis (1) Sepsis: Status: Acute Code(s): A41.9 - Sepsis, unspecified organism (2) Acute UTI: Status: Acute Code(s): N39.0 - Urinary tract infection, site not specified (3) Infection, face: Status: Acute Code(s): L08.9 - Local infection of the skin and subcutaneous tissue, unspecified (4) Encephalopathy: Status: Acute Code(s): G93.40 - Encephalopathy, unspecified Medications at Discharge Home Medications montelukast 10 mg tablet 10 mg PO QHS 12/03/18 aspirin 81 mg PO BREAKFAST 01/11/21 carvedilol 3.125 mg PO BID 01/11/21 fluticasone propion-salmeterol [AirDuo RespiClick] 1 puff INHALATION BID 01/11/21 food supplemt, lactose-reduced [Boost Breeze] 240 ml PO BID 01/11/21 lisinopril 5 mg PO DAILY 01/11/21 lorazepam 0.5 mg PO QHS PRN PRN 01/11/21 quetiapine [Seroquel] 12.5 mg PO QHS 01/11/21 sennosides [senna] 8.6 mg PO DAILY 01/11/21 sodium chloride 1 g PO BID 01/11/21 Medical Records Data Medical Nutrition Assessment Dietitian: Nutrition Therapy Diagnosis Start: 01/12/21 09:59 Freq: Status: Active Protocol: Document 01/14/21 10:06 BP (Rec: 01/14/21 10:06 BP [id number]) Nutrition Malnutrition Evidence of Malnutrition Exists Yes Evidenced By Suboptimal Energy Intake ( Severe),Weight Loss (Severe) Clinical Problem Acute Disease or Injury Related Malnutrition Etiology related to inadequate energy intake due to severe sepsis/ declining health over past month Signs/Symptoms as evidenced by suspected <75% po intake as pt reports pt with very poor 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 Status Active Problem Recommendation Dietitian Recommendations/Changes Continue ensure pudding or magic cup w/ meals for increased nutrition if consumed. Will provide 120 ml Ensure enlive with medpass. Rec continue liberal Regular diet d/t signs/symptoms of malnutrition. Weight / BMI Weight Weight: 119 lb 0.794 oz Body Mass Index (BMI) 17.8 ABG / Lab / Microbiology Data Result Diagrams: 01/16/21 05:45 01/17/21 03:40 Laboratory: Laboratory Results - last 24 hr 01/17/21 17:55: Random Vancomycin 22.1 H 01/18/21 06:05: Random Vancomycin 18.8 H Microbiology: Microbiology 01/11/21 11:05 Blood Culture (Wb) - Anticubital Left Blood Culture - Final No growth in 5 days. 01/11/21 11:20 Blood Culture (Wb) - No Site/Description Given Blood Culture - Final No growth in 5 days. 01/11/21 14:05 Wound - Other Gram Stain - Final 01/11/21 14:05 Wound - Other Wound Culture - Final Meth. resistant Staph. aureus 01/11/21 14:05 Wound - Other Anaerobic Culture - Final No anaerobic bacteria isolated. 01/11/21 13:15 Urine, Catheterized Urine Culture - Final Culture exhibits no growth. Discharge Plan Admission Admit Date/Time: 01/11/21 14:12 Attending Provider: Donato Kaiser Primary Care Provider: Jamie Yang Consulting Providers: Digna Watkins ; Anoop Reyes ; Laurence Meyer ; Darlene Fulton ; Ivone Boston ; Debby Mix LOGISTICS SOLUTION MANAGER ; Seymour Kumar ; Ang Villafana ; Gala Herrera LOGISTICS SOLUTION MANAGER Discharge Orders/Prescriptions Prescriptions: No Action montelukast 10 mg tablet 10 mg PO QHS RF: 0 quetiapine [Seroquel] 25 mg Tablet 12.5 mg PO QHS RF: 0 sennosides [senna] 8.6 mg Tablet 8.6 mg PO DAILY RF: 0 sodium chloride 1 gram tablet 1 g PO BID RF: 0 lorazepam 0.5 mg tablet 0.5 mg PO QHS PRN PRN (Reason: if seroquel not working) RF: 0 Boost Breeze Liquid 240 ml PO BID RF: 0 aspirin 81 mg tablet,delayed release (DR/EC) 81 mg PO BREAKFAST RF: 0 carvedilol 3.125 mg tablet 3.125 mg PO BID RF: 0 lisinopril 5 mg tablet 5 mg PO DAILY RF: 0 fluticasone propion-salmeterol [AirDuo RespiClick] 113-14 mcg/actuation aerosol powdr breath activated 1 puff INHALATION BID RF: 0 Referrals / Follow Up: Jamie Yang MD [Primary Care Provider] -
--- NOTE | 2021-01-18 10:59 | PCM.DC ---
Discharge Instructions Follow Up Care Test Results: Test results from this visit will be discussed in further detail at your follow-up appointment, if applicable. Discharge Plan Admission Admit Date/Time: 01/11/21 14:12 Attending Provider: Donato Kaiser Primary Care Provider: Jaime Yang Consulting Providers: Digna Watkins ; Anoop Reyes ; Laurence Meyer ; Darlene Fulton ; Ivone Boston ; Debby Mix NP ; Seymour Kumar ; Ang Villafana ; Gala Herrera PEDIATRIC PHYSICIAN ASSISTANT Discharge Orders/Prescriptions Prescriptions: No Action montelukast 10 mg tablet 10 mg PO QHS RF: 0 quetiapine [Seroquel] 25 mg Tablet 12.5 mg PO QHS RF: 0 sennosides [senna] 8.6 mg Tablet 8.6 mg PO DAILY RF: 0 sodium chloride 1 gram tablet 1 g PO BID RF: 0 lorazepam 0.5 mg tablet 0.5 mg PO QHS PRN PRN (Reason: if seroquel not working) RF: 0 Boost Breeze Liquid 240 ml PO BID RF: 0 aspirin 81 mg tablet,delayed release (DR/EC) 81 mg PO BREAKFAST RF: 0 carvedilol 3.125 mg tablet 3.125 mg PO BID RF: 0 lisinopril 5 mg tablet 5 mg PO DAILY RF: 0 fluticasone propion-salmeterol [AirDuo RespiClick] 113-14 mcg/actuation aerosol powdr breath activated 1 puff INHALATION BID RF: 0 Referrals / Follow Up: Jamie Yang MD [Primary Care Provider] -
--- NOTE | 2021-01-18 12:27 | PN.HOSP_ITS ---
Subjective Subjective No change in symptoms or complaint. Patient is sitting quietly in the room. Noncommunicative. Patient's nurse, flow has the concern of rash but it looks chronic and is fading away. Objective Data Objective Data Vital Signs: Vital Signs Temp Pulse Resp BP Pulse Ox 97.7 F L 100 20 H 96/82 H 95 01/18/21 08:28 01/18/21 08:32 01/18/21 08:28 01/18/21 08:28 01/18/21 08:28 Oxygen Delivery Method Room Air Weight: 119 lb 0.794 oz Body Mass Index (BMI) 17.8 Intake & Output: Intake and Output for Last 24 Hours 01/16/21 01/17/21 01/18/21 23:59 23:59 23:59 Intake Total 1301 / 1301 320 / 320 Output Total 250 / 250 Balance 1051 / 1051 320 / 320 Medical Nutrition Assessment Dietitian: Nutrition Therapy Diagnosis Start: 01/12/21 09:59 Freq: Status: Active Protocol: Document 01/14/21 10:06 BP (Rec: 01/14/21 10:06 BP [id number]) Nutrition Malnutrition Evidence of Malnutrition Exists Yes Evidenced By Suboptimal Energy Intake ( Severe),Weight Loss (Severe) Clinical Problem Acute Disease or Injury Related Malnutrition Etiology related to inadequate energy intake due to severe sepsis/ declining health over past month Signs/Symptoms as evidenced by suspected <75% po intake as pt reports 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 Status Active Problem Recommendation Dietitian Recommendations/Changes Continue ensure pudding or magic cup w/ meals for increased nutrition if consumed. Will provide 120 ml Ensure enlive with medpass. Rec continue liberal Regular diet d/t signs/symptoms of malnutrition. Lab / Micro Data Result Diagrams: 01/16/21 05:45 01/17/21 03:40 Labs: Laboratory Results - last 24 hr 01/17/21 17:55: Random Vancomycin 22.1 H 01/18/21 06:05: Random Vancomycin 18.8 H Micro: Microbiology 01/11/21 11:05 Blood Culture (Wb) - Anticubital Left Blood Culture - Final No growth in 5 days. 01/11/21 11:20 Blood Culture (Wb) - No Site/Description Given Blood Culture - Final No growth in 5 days. 01/11/21 14:05 Wound - Other Gram Stain - Final 01/11/21 14:05 Wound - Other Wound Culture - Final Meth. resistant Staph. aureus 01/11/21 14:05 Wound - Other Anaerobic Culture - Final No anaerobic bacteria isolated. 01/11/21 13:15 Urine, Catheterized Urine Culture - Final Culture exhibits no growth. Physical Exam Narrative General: Nonverbal/noncommunicative. Follows to simple command HEENT: Hard of hearing. Dry dressing/wound over forehead. PERRLA, EOMI, Normocephalic Oral: Tongue coated with white patch. No Gingival or Mucosal Lesions/ Ulcerations Neck: Supple, No JVD, Negative Carotid Bruits Lungs: Air entry diminished in bilateral lung bases. No crepitation/rhonchi Cardiovascular: Regular rate, Regular Rhythm, Normal S1, Normal S2, ejection systolic murmur right second ICS Abdomen: Bowel Sounds Present, Soft, Non Tender, Non-Distended : Urinary incontinence. No catheter. No renal angle tenderness. No suprapubic tenderness. Extremities: No edema, Capillary Refill Less than 3 Seconds Skin: Chronic, erythematous, punctate fading rash in both lower extremities present since admission. Its not blotching red, hives. Documented in nursing note Musculoskeletal: No Tenderness to Palpation of Joints or Extremities Neurological: Deep Tendon Reflexes 2+/4 and Symmetrical, muscle strength decreased at major joints Psych/Mental Status: Dementia. Assessment & Plan Assessment/Plan (1) Sepsis: (2) Acute UTI: (3) Infection, face: (4) Encephalopathy: PLAN: 1. Severe sepsis facial MRSA cellulitis status post laceration: Patient is in ICU. UTI ruled out with negative urine culture. Patient on vancomycin. Blood test x2 are negative. Transaminases, liver chemistry improved. 01/18: IV antibiotic changed to doxycycline 100 mg twice daily. Skin rash is chronic and present since admission, does not look vancomycin induced rash/red man syndrome 2. Acute metabolic encephalopathy, functional decline on baseline possible dementia: Patient has severe malnutrition. Palliative/hospice care is involved. Palliative care meeting at today's afternoon. Limited ADL and needs feeding. 3. BRANDON probably prerenal/severe sepsis: Patient admitted with creatinine 1.5 with baseline creatinine approximately 2.8. Patient received fluid resuscitation and improved. BRANDON resolved. 4. Chronic leukopenia and anemia: Patient follows Dr. Jhaveri as an outpatient. Patient also had lumbar puncture but Dr. Jhaveri does not arrive at any conclusion. He considered several differential diagnosis including MDS/leukemia 5. SIADH: Patient being followed by veneer taping machine operator. On 1500 fluid restriction. 6 chronic systolic and diastolic CHF, hypertension dyslipidemia: Patient functional decline, limited ADL and severe malnutrition takes precedence over chronic comorbidities. DVT: Lovenox CODE STATUS DNR CCA no intubation Patient is medically ready for discharge. Discussed with the social contact worker, manager of case management and palliative/hospice care attending Dr. Sykes. Patient supposed to go home with home hospice care but does not have hospice arrangement at home. Charges/Coding Visit Charges Inpatient E&M: 53456 Subs Hosp L2
--- NOTE | 2021-01-18 14:34 | CASEMGMT ---
SW spoke w/Gala at [facility], they will be able to take pt tomorrow on hospice. They will have a bed open near the nurse's station tomorrow for pt. SW called , let her know that [facility] can take pt tomorrow, will have a bed near the nurse's station for pt available tomorrow. SW also did remind that the room and board will be private pay, [facility] will let her know the cost. states understanding. SYDNIE called [facility], let Deniz know pt will go to [place] tomorrow on hospice. SYDNIE texted physician, let him know pt will go to [place] tomorrow on hospice. SW will follow up tomorrow. SUMIT Whiting
[2021-01-18 15:05] VITALS: BP 147/45; PULSE 85; RESP 18; TEMP 36.3; O2SAT 100
[2021-01-18 15:09] VITALS: PULSE 90
[2021-01-18 20:40] VITALS: BP 156/92; PULSE 100; RESP 18; TEMP 36.6; O2SAT 99
[2021-01-18] MEDS: QUEtiapine 25 MG Tablet PO (20:40)
[2021-01-19 03:01] VITALS: BP 149/47; PULSE 92; RESP 16; TEMP 36.4; O2SAT 97
--- NOTE | 2021-01-19 08:26 | PCM.DC ---
Discharge Instructions Follow Up Care Test Results: Test results from this visit will be discussed in further detail at your follow-up appointment, if applicable. Discharge Plan Admission Admit Date/Time: 01/11/21 14:12 Attending Provider: Donato Kaiser Primary Care Provider: Jamie Yang Consulting Providers: Digna Watkins ; Anoop Reyes ; Laurence Meyer ; Darlene Fulton ; Ivone Boston ; Debby Mix NP ; Seymour Kumar ; Ang Villafana ; Gala Herrera BATTERY CHECKER Discharge Orders/Prescriptions Prescriptions: No Action montelukast 10 mg tablet 10 mg PO QHS RF: 0 quetiapine [Seroquel] 25 mg Tablet 12.5 mg PO QHS RF: 0 sennosides [senna] 8.6 mg Tablet 8.6 mg PO DAILY RF: 0 sodium chloride 1 gram tablet 1 g PO BID RF: 0 lorazepam 0.5 mg tablet 0.5 mg PO QHS PRN PRN (Reason: if seroquel not working) RF: 0 Boost Breeze Liquid 240 ml PO BID RF: 0 aspirin 81 mg tablet,delayed release (DR/EC) 81 mg PO BREAKFAST RF: 0 carvedilol 3.125 mg tablet 3.125 mg PO BID RF: 0 lisinopril 5 mg tablet 5 mg PO DAILY RF: 0 fluticasone propion-salmeterol [AirDuo RespiClick] 113-14 mcg/actuation aerosol powdr breath activated 1 puff INHALATION BID RF: 0 Referrals / Follow Up: Jamie Yang MD [Primary Care Provider] -
--- NOTE | 2021-01-19 08:26 | PCM.DC.SUM ---
Providers Date of Admission: 01/11/21 Primary Care Physician: Dr. Jamie Yang MD Consultations 01/11/21 15:34 Consult: Hospice / Palliative Care Routine Consulting Provider: [facility] Reason for Consult: Decreasing Functional status EMERGENT Consult: No Notified: Yes Date Notified: 01/12/21 Time Notified: 10:00 Method of Notification: Page Consult: Planer Chain Offbearer / Pulmonary Medicine Routine Consulting Provider: [facility] Reason for Consult: severe sepsis EMERGENT Consult: No Notified: Yes Date Notified: 01/11/21 Time Notified: 15:30 Method of Notification: Verbal 01/12/21 11:07 Consult: Onc/Wound/automobile insurance claim examiner Routine Comment: Reason For Visit: SEVERE SEPSIS Diagnosis Discharge Diagnosis (1) Sepsis: Status: Acute Code(s): A41.9 - Sepsis, unspecified organism (2) Acute UTI: Status: Acute Code(s): N39.0 - Urinary tract infection, site not specified (3) Infection, face: Status: Acute Code(s): L08.9 - Local infection of the skin and subcutaneous tissue, unspecified (4) Encephalopathy: Status: Acute Code(s): G93.40 - Encephalopathy, unspecified Medications at Discharge Home Medications montelukast 10 mg tablet 10 mg PO QHS 12/03/18 aspirin 81 mg PO BREAKFAST 01/11/21 carvedilol 3.125 mg PO BID 01/11/21 fluticasone propion-salmeterol [AirDuo RespiClick] 1 puff INHALATION BID 01/11/21 food supplemt, lactose-reduced [Boost Breeze] 240 ml PO BID 01/11/21 lisinopril 5 mg PO DAILY 01/11/21 lorazepam 0.5 mg PO QHS PRN PRN 01/11/21 quetiapine [Seroquel] 12.5 mg PO QHS 01/11/21 sennosides [senna] 8.6 mg PO DAILY 01/11/21 sodium chloride 1 g PO BID 01/11/21 Medical Records Data Medical Nutrition Assessment Dietitian: Nutrition Therapy Diagnosis Start: 01/12/21 09:59 Freq: Status: Active Protocol: Document 01/18/21 15:11 AG (Rec: 01/18/21 15:12 AG [id number]) Nutrition Malnutrition Evidence of Malnutrition Exists Yes Malnutrition (severe): Acute Illness/Injury Evidenced By Suboptimal Energy Intake ( Severe),Weight Loss (Severe) Clinical Problem Acute Disease or Injury Related Malnutrition Etiology severe, acute malnutrition related to inadequate energy intake due to severe sepsis/ declining health over past month Signs/Symptoms as evidenced by estimated PO intake meeting <75% of pt's nutritional needs x1 month, unintentional wt loss 8.4% x 1 month Status Active Problem Recommendation Dietitian Recommendations/Changes Regular diet- consistency per VACUUM DRUM DRIER OPERATOR d/t malnutrition. Ensure Pudding/Magic Cup w/ meals, Ensure Clear 120mL 4x/day for additional calories, protein if consumed. Weight / BMI Weight Weight: 119 lb 0.794 oz Body Mass Index (BMI) 17.8 ABG / Lab / Microbiology Data Result Diagrams: 01/16/21 05:45 01/17/21 03:40 Microbiology: Microbiology 01/11/21 11:05 Blood Culture (Wb) - Anticubital Left Blood Culture - Final No growth in 5 days. 01/11/21 11:20 Blood Culture (Wb) - No Site/Description Given Blood Culture - Final No growth in 5 days. 01/11/21 14:05 Wound - Other Gram Stain - Final 01/11/21 14:05 Wound - Other Wound Culture - Final Meth. resistant Staph. aureus 01/11/21 14:05 Wound - Other Anaerobic Culture - Final No anaerobic bacteria isolated. 01/11/21 13:15 Urine, Catheterized Urine Culture - Final Culture exhibits no growth. Discharge Plan Admission Admit Date/Time: 01/11/21 14:12 Attending Provider: Donato Kaiser Primary Care Provider: Jamie Yang Consulting Providers: Digna Watkins ; Anoop Reyes ; Laurence Meyer ; Darlene Fulton ; Ivone Boston ; Debby Mix CASHIER RECEPTIONIST ; Seymour Kumar ; Ang Villafana ; Gala Herrera CASHIER RECEPTIONIST Discharge Orders/Prescriptions Prescriptions: No Action montelukast 10 mg tablet 10 mg PO QHS RF: 0 quetiapine [Seroquel] 25 mg Tablet 12.5 mg PO QHS RF: 0 sennosides [senna] 8.6 mg Tablet 8.6 mg PO DAILY RF: 0 sodium chloride 1 gram tablet 1 g PO BID RF: 0 lorazepam 0.5 mg tablet 0.5 mg PO QHS PRN PRN (Reason: if seroquel not working) RF: 0 Boost Breeze Liquid 240 ml PO BID RF: 0 aspirin 81 mg tablet,delayed release (DR/EC) 81 mg PO BREAKFAST RF: 0 carvedilol 3.125 mg tablet 3.125 mg PO BID RF: 0 lisinopril 5 mg tablet 5 mg PO DAILY RF: 0 fluticasone propion-salmeterol [AirDuo RespiClick] 113-14 mcg/actuation aerosol powdr breath activated 1 puff INHALATION BID RF: 0 Referrals / Follow Up: Jamie Yang MD [Primary Care Provider] -
[2021-01-19 08:59] VITALS: BP 158/46; PULSE 88; RESP 18; TEMP 36.4; O2SAT 97
[2021-01-19 09:04] VITALS: PULSE 90
[2021-01-19] MEDS: Sodium Chloride 1 GM Tablet PO (09:12)
[2021-01-19] MEDS: QUEtiapine 25 MG Tablet 12.5 MG PO (09:12)
[2021-01-19] MEDS: Carvedilol 3.125 MG TABLET PO (09:13)
[2021-01-19] MEDS: Enoxaparin 40 MG/0.4 ML Syringe SC (09:13)
[2021-01-19] MEDS: Senna Tablet 1 TABLET PO (09:13)
[2021-01-19] MEDS: Doxycycline 100 MG CAPSULE PO (09:13)
[2021-01-19] MEDS: Ensure Clear 120 ML Liquid PO ×2 (09:20→12:42)
[2021-01-19] MEDS: Aspirin E.C. 81 MG Tablet PO (09:22)
--- NOTE | 2021-01-19 10:02 | CASEMGMT ---
Addendum entered by Kandy Lowry 01/19/21 11:47: Negative Covid results faxed to [facility] and [facility]. SUMIT [place] Addendum entered by Kandy Lowry 01/19/21 11:03: Discharge instructions faxed to [facility] and [facility]. SW on floor let pt's RN know time of pickup. SW called [facility], let Gala at [facility] know 2pm pickup time. SW also let Abril at [facility] know the pickup time. SYDNIE called and let her know the pickup time. Once the COVID results are back SW will fax them also to [facility]. [facility] [place] Addendum entered by Kandy Lowry 01/19/21 10:45: [facility] can take pt after 1pm. [facility], set up a 2pm ambulance. SYDNIE will send discharge instructions once completed. SUMIT [place] Original Note: SYDNIE called [facility], message left inquiring when they may be able to take pt today. [facility] [place]
--- NOTE | 2021-01-19 10:23 | PCM.TXEXTCAR ---
Diet 01/11/21 15:34 Diet: Regular - General Food consistency:: Pureed Liquid Consistency:: Regular/Thin Diet Comments: ensure pudding or magic cup w/ meals; TOTAL FEED, ONLY FEED WHEN ALERT Routine Orders/Code Status Suppository Type: Dulcolax 10mg Suppository Frequency: Daily PRN Code Status: DNRCC-A Wound(s) forehead: Wound Type: Laceration Dressing Change: AntiMicrobial (Aquacel AG, etc) Therapies Weight Bearing: Weight bearing as tolerated Physical Therapy: Eval and Treat Occupational Therapy: Eval and Treat Speech Therapy: Eval and Treat Problem/Diagnosis (1) Sepsis: Status: Acute (2) Acute UTI: Status: Acute (3) Infection, face: Status: Acute (4) Encephalopathy: Status: Acute Comment: ? Demyelinating disease with increase in Myelin Basic Protein. Allergies/Procedures Done in Hospital Allergies No Known Allergies Allergy (Verified 01/16/21 13:11) Type of Care/Length of Stay Estimated LOS: More Than 30 Days Type of Care Needed: Intermediate Rehab Potential: Poor Prognosis: Poor Additional Orders/Day of Discharge Additional Orders: Pt to be on hospice when he returns to the alf. Day of Discharge: 01/19/21 Dietary and Speech Recommendations Dietitian Recommendations/Changes: Regular diet- consistency per MEDICAL DEVICE SALES REPRESENTATIVE d/t malnutrition. Ensure Pudding/Magic Cup w/ meals, Ensure Clear 120mL 4x/day for additional calories, protein if consumed. Follow Up Care Please follow up with your Primary Care Physician in: PCP in 2 week Discharge Plan Admission Admit Date/Time: 01/11/21 14:12 Primary Reason for Your Visit: MRSA wound infection forehead Attending Provider: Donato Kaiser Primary Care Provider: Jamie Yang Consulting Providers: Digna Watkins ; Anoop Reyes ; Laurence Meyer ; Darlene Fulton ; Ivone Boston ; Debby Mix NP ; Seymour Kumar ; Ang Villafana ; Gala Herrera SECURITY DOOR INSTALLER Discharge Orders/Prescriptions Prescriptions: New mupirocin 2 % ointment 1 applic topical BID Qty: 22 RF: 0 Continued montelukast 10 mg tablet 10 mg PO QHS RF: 0 quetiapine [Seroquel] 25 mg Tablet 12.5 mg PO QHS RF: 0 sennosides [senna] 8.6 mg Tablet 8.6 mg PO DAILY RF: 0 sodium chloride 1 gram tablet 1 g PO BID RF: 0 food supplemt, lactose-reduced Liquid 240 ml PO BID RF: 0 aspirin 81 mg tablet,delayed release (DR/EC) 81 mg PO BREAKFAST RF: 0 carvedilol 3.125 mg tablet 3.125 mg PO BID RF: 0 lisinopril 5 mg tablet 5 mg PO DAILY RF: 0 fluticasone propion-salmeterol [AirDuo RespiClick] 113-14 mcg/actuation aerosol powdr breath activated 1 puff INHALATION BID RF: 0 Changed lorazepam 0.5 mg tablet 0.5 mg PO QHS PRN PRN (Reason: if seroquel not working) Qty: 5 RF: 0 Referrals / Follow Up: Jamie Yang MD [Primary Care Provider] - Disposition Disposition (needs filled in before D/C Order can be placed): Hospice in Medical Facility
--- NOTE | 2021-01-19 10:30 | PCM.DC.SUM ---
Providers Date of Admission: 01/11/21 Primary Care Physician: Dr. Jamie Yang MD Consultations 01/11/21 15:34 Consult: Hospice / Palliative Care Routine Consulting Provider: [facility] Reason for Consult: Decreasing Functional status EMERGENT Consult: No Notified: Yes Date Notified: 01/12/21 Time Notified: 10:00 Method of Notification: Page Consult: Building Maintenance Technician / Pulmonary Medicine Routine Consulting Provider: [facility] Reason for Consult: severe sepsis EMERGENT Consult: No Notified: Yes Date Notified: 01/11/21 Time Notified: 15:30 Method of Notification: Verbal 01/12/21 11:07 Consult: Onc/Wound/mgmt specialist Routine Comment: Reason For Visit: SEVERE SEPSIS Diagnosis Discharge Diagnosis (1) Sepsis: Status: Acute Code(s): A41.9 - Sepsis, unspecified organism (2) Acute UTI: Status: Acute Code(s): N39.0 - Urinary tract infection, site not specified (3) Infection, face: Status: Acute Code(s): L08.9 - Local infection of the skin and subcutaneous tissue, unspecified (4) Encephalopathy: Status: Acute Code(s): G93.40 - Encephalopathy, unspecified Medications at Discharge Home Medications montelukast 10 mg tablet 10 mg PO QHS 12/03/18 aspirin 81 mg PO BREAKFAST 01/11/21 carvedilol 3.125 mg PO BID 01/11/21 fluticasone propion-salmeterol [AirDuo RespiClick] 1 puff INHALATION BID 01/11/21 food supplemt, lactose-reduced 240 ml PO BID 01/11/21 lisinopril 5 mg PO DAILY 01/11/21 quetiapine [Seroquel] 12.5 mg PO QHS 01/11/21 sennosides [senna] 8.6 mg PO DAILY 01/11/21 sodium chloride 1 g PO BID 01/11/21 lorazepam 0.5 mg PO QHS PRN PRN #5 tab 01/19/21 mupirocin 1 applic TOPICAL BID #22 g 01/19/21 Hospital Course Summary of Care Provided Hospital Course: This 80-year-old gentleman was admitted for acute mental status change with history of dementia. Patient also has large laceration of the right forehead after fall on 12/28/2020 which was infected. Stitches were recently removed. There is also right-sided facial ecchymosis/cellulitis 1. Severe sepsis facial MRSA cellulitis status post laceration: Patient is in ICU. UTI ruled out with negative urine culture. Patient on vancomycin started on 01/11. Blood test x2 are negative. Patient had 8 days of IV vancomycin and 1 day of doxycycline. Discharged on mupirocin 2% topical twice daily for 5 more days. Wound has almost healed. Transaminases, liver chemistry improved. 2. Acute metabolic encephalopathy, functional decline on baseline possible dementia: Patient has severe malnutrition. Palliative/hospice care is involved. Palliative care meeting at today's afternoon. Limited ADL and needs feeding. Patient has dementia. Family agreed with palliative care. Patient was seen by palliative/hospice care nurse. Patient is being discharged to SNF and hospice care will follow in half-way. 3. BRANDON probably prerenal/severe sepsis: Patient admitted with creatinine 1.5 with baseline creatinine approximately 2.8. Patient received fluid resuscitation and improved. BRANDON resolved. 4. Chronic leukopenia and anemia: Patient follows Dr. Jhaveri as an outpatient. Patient also had lumbar puncture but Dr. Jhaveri does not arrive at any conclusion. 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 On 1500 fluid restriction. 6 chronic systolic and diastolic CHF, hypertension dyslipidemia: Patient functional decline, limited ADL and severe malnutrition takes precedence over chronic comorbidities. DVT: Lovenox CODE STATUS DNR CCA no intubation Discharge medication reconciliation done. Discharge follow-up instructions completed. Discharge process discussed with the patient and all questions were answered to patient's satisfaction. Total time spent, exact 35 minutes on discharge meds reconciliation, examination, coordination of care with nurses and ancillary staff, review of imaging and blood test and discussion with the patient on follow-up instructions Physical Exam Narrative General: Nonverbal/noncommunicative. HEENT: Hard of hearing. Dry dressing/wound over forehead. PERRLA, EOMI, Normocephalic Oral: Tongue coated with white patch. No Gingival or Mucosal Lesions/ Ulcerations Neck: Supple, No JVD, Negative Carotid Bruits Lungs: Air entry diminished in bilateral lung bases. No crepitation/rhonchi Cardiovascular: Regular rate, Regular Rhythm, Normal S1, Normal S2, ejection systolic murmur right second ICS Abdomen: Bowel Sounds Present, Soft, Non Tender, Non-Distended : Urinary incontinence. No catheter. No renal angle tenderness. No suprapubic tenderness. Extremities: No edema, Capillary Refill Less than 3 Seconds Skin: Mild erythematous rash has faded away. Small subcutaneous deep ulcer over head. Almost healed Musculoskeletal: No Tenderness to Palpation of Joints or Extremities Neurological: Deep Tendon Reflexes 2+/4 and Symmetrical, muscle strength decreased at major joints Psych/Mental Status: Dementia. Medical Records Data Medical Nutrition Assessment Dietitian: Nutrition Therapy Diagnosis Start: 01/12/21 09:59 Freq: Status: Active Protocol: Document 01/18/21 15:11 AG (Rec: 01/18/21 15:12 [id number]) Nutrition Malnutrition Evidence of Malnutrition Exists Yes Malnutrition (severe): Acute Illness/Injury Evidenced By Suboptimal Energy Intake ( Severe),Weight Loss (Severe) Clinical Problem Acute Disease or Injury Related Malnutrition Etiology severe, acute malnutrition related to inadequate energy intake due to severe sepsis/ declining health over past month Signs/Symptoms as evidenced by estimated PO intake meeting <75% of pt's nutritional needs x1 month, unintentional wt loss 8.4% x 1 month Status Active Problem Recommendation Dietitian Recommendations/Changes Regular diet- consistency per CASSANDRA ARCHITECT d/t malnutrition. Ensure Pudding/Magic Cup w/ meals, Ensure Clear 120mL 4x/day for additional calories, protein if consumed. Weight / BMI Weight Weight: 119 lb 0.794 oz Body Mass Index (BMI) 17.8 ABG / Lab / Microbiology Data Result Diagrams: 01/16/21 05:45 01/17/21 03:40 Microbiology: Microbiology 01/11/21 11:05 Blood Culture (Wb) - Anticubital Left Blood Culture - Final No growth in 5 days. 01/11/21 11:20 Blood Culture (Wb) - No Site/Description Given Blood Culture - Final No growth in 5 days. 01/11/21 14:05 Wound - Other Gram Stain - Final 01/11/21 14:05 Wound - Other Wound Culture - Final Meth. resistant Staph. aureus 01/11/21 14:05 Wound - Other Anaerobic Culture - Final No anaerobic bacteria isolated. 01/11/21 13:15 Urine, Catheterized Urine Culture - Final Culture exhibits no growth. Meaningful Use Info Meaningful Use Diagnoses (Choose all that apply): None applicable Discharge Plan Admission Admit Date/Time: 01/11/21 14:12 Primary Reason for Your Visit: MRSA wound infection forehead Attending Provider: Donato Kaiser Primary Care Provider: Jamie Yang Consulting Providers: Digna Watkins ; Anoop Reyes ; Laurence Meyer ; Darlene Fulton ; Ivone Boston ; Debby Mix INSTRUCTIONAL DESIGN MANAGER ; Seymour Kumar ; Ang Villafana ; Gala Herrera INSTRUCTIONAL DESIGN MANAGER Discharge Orders/Prescriptions Prescriptions: New mupirocin 2 % ointment 1 applic topical BID Qty: 22 RF: 0 Continued montelukast 10 mg tablet 10 mg PO QHS RF: 0 quetiapine [Seroquel] 25 mg Tablet 12.5 mg PO QHS RF: 0 sennosides [senna] 8.6 mg Tablet 8.6 mg PO DAILY RF: 0 sodium chloride 1 gram tablet 1 g PO BID RF: 0 food supplemt, lactose-reduced Liquid 240 ml PO BID RF: 0 aspirin 81 mg tablet,delayed release (DR/EC) 81 mg PO BREAKFAST RF: 0 carvedilol 3.125 mg tablet 3.125 mg PO BID RF: 0 lisinopril 5 mg tablet 5 mg PO DAILY RF: 0 fluticasone propion-salmeterol [AirDuo RespiClick] 113-14 mcg/actuation aerosol powdr breath activated 1 puff INHALATION BID RF: 0 Changed lorazepam 0.5 mg tablet 0.5 mg PO QHS PRN PRN (Reason: if seroquel not working) Qty: 5 RF: 0 Referrals / Follow Up: Jamie Yang MD [Primary Care Provider] - Disposition Disposition (needs filled in before D/C Order can be placed): Hospice in Medical Facility Charges/Coding Visit Charges Inpatient E&M: 39630 Disch Hosp
--- NOTE | 2021-01-19 11:13 | CASEMGMT ---
Social Work Note SW faxed discharge paperwork to both [facility] and [facility]. SW to fax COVID test once completed. Ivon Felix CUB REPORTER, PROJECT LEAD
[2021-01-19 13:29] VITALS: BP 138/39; PULSE 75; RESP 18; TEMP 36.6; O2SAT 98
--- NOTE | 2021-01-19 13:48 | NURSING ---
Attempted to call report, was on hold for over 13 minutes.
== END 2021-01-19 14:00 | disposition hospice, inpatient (51) | DRG 871 ==
LOC: ED 14:14 → ICU 14:20 → MS3 01-17 18:27
PROVIDERS: Family Medicine; Hospitalist; Internal Medicine Critical Care Medicine; Admitting Provider Internal Medicine; Emergency Provider Emergency Medicine; PCP Family Medicine; Visit Provider Internal Medicine
DX: A41.9 Sepsis, unspecified organism (principal); G93.41 Metabolic encephalopathy; E43 Unspecified severe protein-calorie malnutrition; N17.9 Acute kidney failure, unspecified; E22.2 Syndrome of inappropriate secretion of antidiuretic hormone; I50.42 Chronic combined systolic (congestive) and diastolic (congestive) heart failure; Z68.1 Body mass index [BMI] 19.9 or less, adult; L03.211 Cellulitis of face; R65.20 Severe sepsis without septic shock; B95.62 Methicillin resistant Staphylococcus aureus infection as the cause of diseases classified elsewhere; F03.90 Unspecified dementia, unspecified severity, without behavioral disturbance, psychotic disturbance, mood disturbance, and anxiety; D64.9 Anemia, unspecified; Z66 Do not resuscitate; I11.0 Hypertensive heart disease with heart failure; E78.5 Hyperlipidemia, unspecified; H91.90 Unspecified hearing loss, unspecified ear; R74.01 Elevation of levels of liver transaminase levels; D70.9 Neutropenia, unspecified; J45.40 Moderate persistent asthma, uncomplicated; R29.6 Repeated falls; Z51.5 Encounter for palliative care; Z79.82 Long term (current) use of aspirin; I34.0 Nonrheumatic mitral (valve) insufficiency
CPT/HCPCS: 36415; 70450; 70486; 71045; 80048; 80053; 80202; 81001; 82550; 83605; 83735; 84100; 85025; 85027; 85610; 85730; 87040; 87070; 87075; 87077; 87086; 87186; 87205; 87426; 92526; 92610; 93005; 95819; 97110; 97116; 97162; 97166; 97530; 97535; 97802; 99285; J7030; J7050; A4216